=== PATIENT | female | born 1930 | race Caucasian/White ===

== ENCOUNTER 2017-08-24 23:01 | Inpatient (IN) | payer MEDICARE, BC ==
--- NOTE | 2017-08-25 01:55 | XR ---
EXAMINATION TYPE: XR chest 1V portable DATE OF EXAM: 08/25/2017 COMPARISON: 03/09/2017 HISTORY: Chest pain TECHNIQUE: Single frontal view of the chest is obtained. FINDINGS: There is no heart failure nor confluent pneumonic infiltrate. Costophrenic angles are sarmad r. Thoracic aorta is atheromatous. IMPRESSION: No active cardiopulmonary disease. There is clearing of minimal infiltrate at the right lung base compared to last exam.
[2017-08-25] MEDS ORDERED: ALPRAZolam 0.25 MG TAB PO PRN (02:07)
[2017-08-25] MEDS ORDERED: HYDROcodone/APAP 5-325MG 1 EACH TAB PO PRN (02:07)
[2017-08-25] MEDS ORDERED: hydrALAZINE HCL 20 MG/ML 1 ML VIAL IVP PRN (02:10)
[2017-08-25] MEDS ORDERED: ONDANSETRON 4 MG/2 ML VIAL IVP PRN (02:10)
[2017-08-25 02:12] LABS: Basophils % (A) 0 %; Eosinophils # (A) 0.1 k/uL (0-0.7); Eosinophils % (A) 1 %; HCT 30.9 % (34.0-46.0); HGB 10.2 gm/dL (11.4-16.0); Lymphocytes # (A) 0.9 k/uL (1.0-4.8); Lymphocytes % (A) 14 %; MCH 29.9 pg (25.0-35.0); MCV 90.5 fL (80.0-100.0); Mean Platelet Volume 7.5; Monocytes # (A) 0.3 k/uL (0-1.0); Monocytes % (A) 5 %; Neutrophils # (A) 4.7 k/uL (1.3-7.7); Neutrophils % (A) 78 %; Platelet Count 160 k/uL (150-450); RBC 3.41 m/uL (3.80-5.40)
[2017-08-25] MEDS ORDERED: SODIUM CHLORIDE 0.9% 1,000 ML IV SCH (02:15)
[2017-08-25 02:20] LABS: Glucose,Whole Blood 186 mg/dL (75-99)
[2017-08-25 02:21] LABS: Calcium 8.9 mg/dL (8.4-10.2); Potassium 4.2 mmol/L (3.5-5.1)
[2017-08-25] MEDS: HYDROcodone/APAP 5-325MG 1 EACH TAB PO PRN ×2 (04:04→21:28)
[2017-08-25] MEDS: NITROGLYCERIN SL TABS 0.4 MG TAB SUBLINGUAL PRN ×2 (04:25→04:40)
[2017-08-25] MEDS ORDERED: MAG HYDROX/AL HYDROX/SIMETH 30 ML CUP PO PRN (04:49)
[2017-08-25 05:09] LABS: HCT 25.9 % (34.0-46.0); HGB 8.9 gm/dL (11.4-16.0); MCH 30.8 pg (25.0-35.0); MCHC 34.4 g/dL (31.0-37.0); MCV 89.6 fL (80.0-100.0); Mean Platelet Volume 7.2; Platelet Count 185 k/uL (150-450); RBC 2.89 m/uL (3.80-5.40); WBC 8.3 k/uL (3.8-10.6)
[2017-08-25 05:17] LABS: Calcium 8.2 mg/dL (8.4-10.2); Magnesium 1.7 mg/dL (1.6-2.3); Potassium 4.2 mmol/L (3.5-5.1)
[2017-08-25] MEDS: LEVOTHYROXINE 75 MCG TAB PO SCH (06:30)
[2017-08-25 07:03] LABS: Glucose,Whole Blood 215 mg/dL (75-99)
[2017-08-25] MEDS: METOPROLOL SUCCINATE (ER) 100 MG TAB.ER.24H PO SCH (08:45)
[2017-08-25] MEDS: ALLOPURINOL 100 MG TAB PO SCH (08:46)
[2017-08-25] MEDS: glipiZIDE 5 MG TAB PO SCH ×2 (08:47→21:29)
[2017-08-25] MEDS: FUROSEMIDE 20 MG TAB PO SCH (08:47)
[2017-08-25] MEDS: GABAPENTIN 400 MG CAP PO SCH ×2 (08:47→21:29)
[2017-08-25] MEDS: ATORVASTATIN 10 MG TAB PO SCH (08:47)
[2017-08-25] MEDS: amLODIPine 5 MG TAB PO SCH (08:48)
[2017-08-25] MEDS: INSULIN ASPART 100 UNIT/ML 1 ML 10 ML VIAL SQ SCH ×4 (08:52→21:30)
[2017-08-25] MEDS ORDERED: MELOXICAM 7.5 MG TAB PO SCH (09:00)
[2017-08-25] MEDS ORDERED: FAMOTIDINE 20 MG TAB PO SCH (09:00)
[2017-08-25 12:06] LABS: Glucose,Whole Blood 140 mg/dL (75-99)
--- NOTE | 2017-08-25 12:09 | P.HPIM ---
History of Present Illness This is a pleasant 86 years old female with past medical history of DM, hyperlipidemia, hypertension, hypothyroidism, hip replacement, next surgery with recent cellulitis of her toe who was transferred from [facility] after patient was found to have abdominal mass Patient originally presented to the hospital with coffee ground vomitus of one- day duration, patient was complaining of from loose bowel movement for about one month and is associated with right lower quadrant abdominal pain which is mild nonspecific with no radiation currently the patient abdominal pain is controlled and she doesn't have the vomiting anymore only nauseated, computed tomography scan of the abdomen and pelvis [in the paper chart] shows moderate ascites with nodular surface of the liver with mild splenomegaly likely due to cirrhosis and portal hypertension Complex cystic lesions in the right pelvis 9.9 cm possibly adnexal in origin Patient has abdominal distention which is starts about 34 months and was gradually progressive Review of Systems Review of Systems All systems: negative Constitutional: Denies chills, Denies fever Eyes: denies blurred vision, denies pain Ears, nose, mouth and throat: Denies headache, Denies sore throat Cardiovascular: Denies chest pain, Denies shortness of breath Respiratory: Reports congestion, Reports home oxygen, Denies cough Gastrointestinal: Denies abdominal pain, Denies diarrhea, Denies nausea, Denies vomiting Musculoskeletal: Denies myalgias Integumentary: Denies pruritus, Denies rash Neurological: Denies numbness, Denies weakness Psychiatric: Denies anxiety, Denies depression Endocrine: Denies fatigue, Denies weight change Past Medical History Past Medical History: Diabetes Mellitus, Hyperlipidemia, Hypertension, Thyroid Disorder Additional Past Medical History / Comment(s): arthritis, thyroidectomy, kidney stones, retinal correction surgery. History of Any Multi-Drug Resistant Organisms: None Reported Additional Past Surgical History / Comment(s): retinal correction surgery, hip replace x2. Neck surgery. pt states doesn't remember all medical history. Additional Past Anesthesia/Blood Transfusion Reaction / Comment(s): pt states hallucinations with anesthesia. Past Psychological History: No Psychological Hx Reported Smoking Status: Former smoker Past Alcohol Use History: None Reported Past Drug Use History: None Reported Additional Drug Use History / Comment(s): quit smoking in 2003 Medications and Allergies Home Medications Medication Instructions Recorded Confirmed Type Allopurinol [Zyloprim] 100 mg PO DAILY 03/06/17 08/25/17 History Clopidogrel [Plavix] 75 mg PO DAILY 03/06/17 08/25/17 History Fluticasone Nasal [place] [Flonase 1 - 2 spray EA NOSTRIL DAILY 03/06/17 08/25/17 History Nasal [place]] Furosemide [Lasix] 20 mg PO DAILY 03/06/17 08/25/17 History Gabapentin [Neurontin] 400 mg PO BID 03/06/17 08/25/17 History Meloxicam [Mobic] 15 mg PO DAILY 03/06/17 08/25/17 History Montelukast [Singulair] 10 mg PO DAILY 03/06/17 08/25/17 History Ranitidine HCl 300 mg PO DAILY 03/06/17 08/25/17 History glipiZIDE [Glucotrol] 5 mg PO BID 03/06/17 08/25/17 History ALPRAZolam [Xanax] 0.25 mg PO DAILY PRN #7 tab 03/12/17 08/25/17 Rx Insulin Detemir [Levemir] 20 unit SQ HS syr 03/12/17 08/25/17 Rx Metoprolol Succinate (ER) [Toprol 100 mg PO DAILY tab.er.24h 03/12/17 08/25/17 Rx XL] amLODIPine [Norvasc] 5 mg PO DAILY tab 03/12/17 08/25/17 Rx Atorvastatin [Lipitor] 10 mg PO DAILY 08/25/17 08/25/17 History Insulin Aspart [NovoLOG See Protocol SQ AC-TID 08/25/17 08/25/17 History (formulary)] Levothyroxine Sodium 25 mcg PO DAILY 08/25/17 08/25/17 History Levothyroxine Sodium 200 mcg PO DAILY 08/25/17 08/25/17 History Allergies Allergy/AdvReac Type Severity Reaction Status Date / Time asparagus Allergy Unknown Verified 08/25/17 11:12 Cauliflower Allergy Unknown Verified 08/25/17 11:12 Penicillins Allergy Rash/Hives Verified 08/25/17 11:12 Sulfa (Sulfonamide Allergy Rash/Hives Verified 08/25/17 11:12 Antibiotics) venom-honey bee Allergy Anaphylaxis Verified 08/25/17 11:12 wool Allergy Rash/Hives Verified 08/25/17 11:12 bactrim Allergy Rash/Hives Uncoded 03/06/17 22:08 Physical Exam Vitals: Vital Signs Temp Pulse Resp BP Pulse Ox 08/25/17 08:00 18 08/25/17 07:00 97.6 F 96 18 172/72 100 08/25/17 04:50 101 H 132/60 08/25/17 04:35 95 123/55 08/25/17 04:30 93 89/52 08/25/17 04:20 97 163/72 08/25/17 03:45 158/68 08/25/17 02:05 197/95 08/25/17 02:00 223/108 08/25/17 01:16 98.2 F 97 16 184/77 95 Intake and Output 08/24/17 08/25/17 08/25/17 22:59 06:59 14:59 Other: Voiding Method Toilet Incontinent # Voids 1 1 Weight 96 kg Constitutional: No acute distress, conversant, pleasant Eyes: Anicteric sclerae, moist conjunctiva, no lid-lag PERRLA ENMT: NC/AT Oropharynx clear, no erythema, exudates Neck: Supple, FROM, no masses, or JVD No carotid bruits No thyromegaly Lungs: Clear to auscultation Clear to percussion Normal respiratory effort, no accessory muscle use Cardiovascular: Heart regular in rate and rhythm, No murmurs, gallops, or rubs No peripheral edema Abdominal: Soft Nontender, no guarding, rebound or rigidity Abdomen moving with respiration Normoactive bowel sounds Large Abdominal swelling, mostly due to her ascites No palpable mass No abdominal wall hernia noted Skin: Normal temperature, tone, texture, turgor No induration No subcutaneous nodules No rash, lesions No ulcers Extremities: No digital cyanosis No clubbing Pedal pulses intact and symmetrical Radial pulses intact and symmetrical Normal gait and station No calf tenderness Psychiatric: Alert and oriented to person, place and time Appropriate affect Intact judgement Neuro: Muscles Strength 5/5 in all 4 extremities Sensation to light touch grossly present throughout Cranial nerves II-XII grossly intact No focal sensory deficits Results CBC & Chem 7: 08/25/17 05:00 08/25/17 05:00 Labs: Abnormal Lab Results - Last 24 Hours (Table) 08/25/17 08/25/17 08/25/17 Range/Units 01:56 01:56 02:18 RBC 3.41 L (3.80-5.40) m/uL Hgb 10.2 L (11.4-16.0) gm/dL Hct 30.9 L (34.0-46.0) % Lymphocytes # 0.9 L (1.0-4.8) k/uL Chloride 108 H (98-107) mmol/L Carbon Dioxide (22-30) mmol/L BUN 30 H (7-17) mg/dL Glucose 177 H (74-99) mg/dL POC Glucose (mg/dL) 186 H (75-99) mg/dL Calcium (8.4-10.2) mg/dL 08/25/17 08/25/17 08/25/17 Range/Units 05:00 05:00 07:00 RBC 2.89 L (3.80-5.40) m/uL Hgb 8.9 L (11.4-16.0) gm/dL Hct 25.9 L (34.0-46.0) % Lymphocytes # (1.0-4.8) k/uL Chloride 109 H (98-107) mmol/L Carbon Dioxide 20 L (22-30) mmol/L BUN 32 H (7-17) mg/dL Glucose 199 H (74-99) mg/dL POC Glucose (mg/dL) 215 H (75-99) mg/dL Calcium 8.2 L (8.4-10.2) mg/dL Thrombosis Risk Factor Assmnt - Choose All That Apply Each Factor Represents 1 point: Heart failure (<1month), Obesity (BMI >25) Each Risk Factor Represents 3 Points: Age 75 years or older Thrombosis Risk Factor Assessment Total Risk Factor Score: 5 Thrombosis Risk Factor Assessment Level: High Risk Assessment and Plan Plan: -Cirrhosis of the liver, new onset, patient denies previous history of liver disease, today patient was on IV fluids which were DC'd, DC Xanax, call GI consult -Coffee-ground vomiting, with a drop of hemoglobin, DC Zantac, start Protonix, DC NSAIDs, call GI consult, check for occult blood in stool and iron study -Chronic diarrhea for 3 months, mostly related to her abdominal mass and or cirrhosis, we'll check for C. diff -Pelvic mass, possibly related to right-sided adnexia, we'll check ultrasound of the abdomen and pelvis -Hypertension on amlodipine -DM continue with the glipizide and Levemir 20 units daily at bedtime GI prophylaxis continue with Protonix DVT prophylaxis continue with SCDs, patient is high-risk for bleeding therefore no heparin Prognosis is guarded given her multiple comorbidities and advanced age
[2017-08-25] MEDS: PANTOPRAZOLE 40 MG/10 ML VIAL IVP SCH ×2 (13:38→21:30)
--- NOTE | 2017-08-25 13:42 | P.CRDCN ---
History of Present Illness Consult date: 08/25/17 History of present illness: This is a 86-year-old female with history of diabetes, hyperlipidemia, hypertension and hypothyroidism who was a transfer from [facility] for management of abdominal pain and possible abdominal mass. Apparently patient has been having coffee-ground hematemesis and also diarrhea. She was complaining of right lower quadrant abdominal pain. Apparently computed tomography scan of the abdomen showed moderate ascites with nodular surface of the liver with mild splenomegaly due to cirrhosis and portal hypertension. A GI consult is requested. A cardiac consult is initiated because of complaints of chest pain. Patient is vague in her description of the pain. The pain seemed to be located near the left clavicle area. It was present for several hours yesterday. Patient seemed to be stable today. She didn't appear to be in acute distress at the time of my examination. Clinically the pain appears to be atypical for angina. We will get an EKG and cardiac enzymes studies and echocardiogram. Further recommendation will depend upon the clinical course. It appears that most of her problems are related to abdominal issues Past Medical History Past Medical History: Diabetes Mellitus, Hyperlipidemia, Hypertension, Thyroid Disorder Additional Past Medical History / Comment(s): arthritis, thyroidectomy, kidney stones, retinal correction surgery. History of Any Multi-Drug Resistant Organisms: None Reported Additional Past Surgical History / Comment(s): retinal correction surgery, hip replace x2. Neck surgery. pt states doesn't remember all medical history. Additional Past Anesthesia/Blood Transfusion Reaction / Comment(s): pt states hallucinations with anesthesia. Past Psychological History: No Psychological Hx Reported Smoking Status: Former smoker Past Alcohol Use History: None Reported Past Drug Use History: None Reported Additional Drug Use History / Comment(s): quit smoking in 2003 Medications and Allergies Home Medications Medication Instructions Recorded Confirmed Type Allopurinol [Zyloprim] 100 mg PO DAILY 03/06/17 08/25/17 History Clopidogrel [Plavix] 75 mg PO DAILY 03/06/17 08/25/17 History Fluticasone Nasal [place] [Flonase 1 - 2 spray EA NOSTRIL DAILY 03/06/17 08/25/17 History Nasal [place]] Furosemide [Lasix] 20 mg PO DAILY 03/06/17 08/25/17 History Gabapentin [Neurontin] 400 mg PO BID 03/06/17 08/25/17 History Meloxicam [Mobic] 15 mg PO DAILY 03/06/17 08/25/17 History Montelukast [Singulair] 10 mg PO DAILY 03/06/17 08/25/17 History Ranitidine HCl 300 mg PO DAILY 03/06/17 08/25/17 History glipiZIDE [Glucotrol] 5 mg PO BID 03/06/17 08/25/17 History ALPRAZolam [Xanax] 0.25 mg PO DAILY PRN #7 tab 03/12/17 08/25/17 Rx Insulin Detemir [Levemir] 20 unit SQ HS syr 03/12/17 08/25/17 Rx Metoprolol Succinate (ER) [Toprol 100 mg PO DAILY tab.er.24h 03/12/17 08/25/17 Rx XL] amLODIPine [Norvasc] 5 mg PO DAILY tab 03/12/17 08/25/17 Rx Atorvastatin [Lipitor] 10 mg PO DAILY 08/25/17 08/25/17 History Insulin Aspart [NovoLOG See Protocol SQ AC-TID 08/25/17 08/25/17 History (formulary)] Levothyroxine Sodium 25 mcg PO DAILY 08/25/17 08/25/17 History Levothyroxine Sodium 200 mcg PO DAILY 08/25/17 08/25/17 History Allergies Allergy/AdvReac Type Severity Reaction Status Date / Time asparagus Allergy Unknown Verified 08/25/17 11:12 Cauliflower Allergy Unknown Verified 08/25/17 11:12 Penicillins Allergy Rash/Hives Verified 08/25/17 11:12 Sulfa (Sulfonamide Allergy Rash/Hives Verified 08/25/17 11:12 Antibiotics) venom-honey bee Allergy Anaphylaxis Verified 08/25/17 11:12 wool Allergy Rash/Hives Verified 08/25/17 11:12 bactrim Allergy Rash/Hives Uncoded 03/06/17 22:08 Physical Exam Vitals: Vital Signs Temp Pulse Resp BP Pulse Ox 08/25/17 08:00 18 08/25/17 07:00 97.6 F 96 18 172/72 100 08/25/17 04:50 101 H 132/60 08/25/17 04:35 95 123/55 08/25/17 04:30 93 89/52 08/25/17 04:20 97 163/72 08/25/17 03:45 158/68 08/25/17 02:05 197/95 08/25/17 02:00 223/108 08/25/17 01:16 98.2 F 97 16 184/77 95 Intake and Output 08/24/17 08/25/17 08/25/17 22:59 06:59 14:59 Other: Voiding Method Toilet Incontinent # Voids 1 1 Weight 96 kg GENERAL EXAM: Patient is alert and oriented and doesn't appear to be in any acute distress HEENT: Normocephalic. Normal reaction of pupils, equal size, normal range of extraocular motion. No erythema or exudates in the throat. NECK: No masses, no nuchal rigidity. CHEST: No chest wall deformity. LUNGS: Equal air entry with no crackles or wheeze. HEART: S1 and S2 normal with no audible mumurs or gallops. Regular rhythm, femorals equal on both sides.. ABDOMEN: Distended SKIN: No rashes CENTRAL NERVOUS SYSTEM: No focal deficits. EXTREMITIES: No cyanosis, clubbing or edema. Results 08/25/17 05:00 08/25/17 05:00 Cardiac Enzymes 08/25/17 08/25/17 08/25/17 Range/Units 01:56 04:50 10:30 Troponin I 0.019 0.018 0.034 (0.000-0.034) ng/mL CBC 08/25/17 08/25/17 Range/Units 01:56 05:00 WBC 6.0 8.3 (3.8-10.6) k/uL RBC 3.41 L 2.89 L (3.80-5.40) m/uL Hgb 10.2 L 8.9 L (11.4-16.0) gm/dL Hct 30.9 L 25.9 L (34.0-46.0) % Plt Count 160 185 (150-450) k/uL Comprehensive Metabolic Panel 08/25/17 08/25/17 Range/Units 01:56 05:00 Sodium 143 141 (137-145) mmol/L Potassium 4.2 4.2 (3.5-5.1) mmol/L Chloride 108 H 109 H (98-107) mmol/L Carbon Dioxide 23 20 L (22-30) mmol/L BUN 30 H 32 H (7-17) mg/dL Creatinine 0.80 0.85 (0.52-1.04) mg/dL Glucose 177 H 199 H (74-99) mg/dL Calcium 8.9 8.2 L (8.4-10.2) mg/dL Current Medications Generic Name Dose Route Start Last Admin Trade Name Freq PRN Reason Stop Dose Admin Hydrocodone Bitart/Acetaminophen 1 each 08/25/17 02:24 08/25/17 04:04 [place] 5-325 PO 1 each Q6HR PRN Administration Pain Scale 6 to 10 Allopurinol 100 mg 08/25/17 09:00 08/25/17 08:46 Zyloprim PO 100 mg DAILY DEJAH Administration Amlodipine Besylate 5 mg 08/25/17 09:00 08/25/17 08:48 Norvasc PO 5 mg DAILY DEJAH Administration Atorvastatin Calcium 10 mg 08/25/17 09:00 08/25/17 08:47 Lipitor PO 10 mg DAILY DEJAH Administration Furosemide 20 mg 08/25/17 09:00 08/25/17 08:47 Lasix PO 20 mg DAILY DEJAH Administration Gabapentin 400 mg 08/25/17 09:00 08/25/17 08:47 Neurontin PO 400 mg BID DEJAH Administration Glipizide 5 mg 08/25/17 09:00 08/25/17 08:47 Glucotrol PO 5 mg BID DEJAH Administration Hydralazine HCl 10 mg 08/25/17 02:10 08/25/17 03:25 Apresoline IVP 10 mg Q4HR PRN Administration Blood Pressure - High Insulin Aspart 0 unit 08/25/17 07:30 08/25/17 13:24 Novolog SQ Not Given [facility] Protocol Insulin Detemir 20 unit 08/25/17 21:00 Levemir SQ HS [facility] Levothyroxine Sodium 225 mcg 08/25/17 06:00 08/25/17 06:30 Synthroid PO 225 mcg DAILY@0600 [facility] Administration Metoprolol Succinate 100 mg 08/25/17 09:00 08/25/17 08:45 Toprol Xl PO 100 mg DAILY DEJAH Administration Montelukast Sodium 10 mg 08/25/17 21:00 Singulair PO HS [facility] Nitroglycerin 0.4 mg 08/25/17 04:17 08/25/17 04:40 Nitrostat SUBLINGUAL 0.4 mg Q5M PRN Administration Chest Pain Ondansetron HCl 4 mg 08/25/17 02:10 Zofran IVP Q6HR PRN Nausea And Vomiting Pantoprazole Sodium 40 mg 08/25/17 12:15 Protonix IVP BID DEJAH Intake and Output 08/24/17 08/25/17 08/25/17 22:59 06:59 14:59 Other: Voiding Method Toilet Incontinent # Voids 1 1 Weight 96 kg 08/25/17 05:00 08/25/17 05:00 Assessment and Plan (1) Atypical chest pain Current Visit: Yes Status: Acute Code(s): R07.89 - OTHER CHEST PAIN SNOMED Code(s): 066096553 (2) Ascites Current Visit: Yes Status: Acute Code(s): R18.8 - OTHER ASCITES SNOMED Code(s): 305271577 (3) Cirrhosis of liver Current Visit: Yes Status: Acute Code(s): K74.60 - UNSPECIFIED CIRRHOSIS OF LIVER SNOMED Code(s): 87742696 (4) Hypertension Current Visit: Yes Status: Acute Code(s): I10 - ESSENTIAL (PRIMARY) HYPERTENSION SNOMED Code(s): 18830633 (5) Diabetic foot ulcer Current Visit: No Status: Acute Code(s): E11.621 - TYPE 2 DIABETES MELLITUS WITH FOOT ULCER; L97.509 - NON-PRESSURE CHRONIC ULCER OTH PRT UNSP FOOT W UNSP SEVERITY SNOMED Code(s): 191975155 Plan: We will get an EKG and cardiac enzyme studies and also an echocardiogram. The abdominal issues are being addressed by GI department. Further recommendations depend upon the clinical course
[2017-08-25 13:51] LABS: Hemoglobin A1C 7.2 % (4.0-6.0)
--- NOTE | 2017-08-25 15:03 | US ---
EXAMINATION TYPE: US pelvic complete DATE OF EXAM: 08/25/2017 COMPARISON: NONE CLINICAL HISTORY: Right pelvic mass. Right pelvic mass seen on recent CT in [place], patient stat es no symptoms, 7, para 7, hysterectomy 1974, patient unsure if she has either one of her ova alhaji. TECHNIQUE: . Transabdominal sonographic images of the pelvis were acquired. Date of LMP: 1974 EXAM MEASUREMENTS: Uterus: surgically absent Endometrial Stripe: surgically absent Right Ovary: not seen Left Ovary: not seen 1. Uterus: surgically absent 2. Endometrium: surgically absent 3. Right Ovary: possibly removed vs. not seen due to overlying bowel gas 4. Left Ovary: possibly removed vs. not seen due to overlying bowel gas 5. Bilateral Adnexa: right adnexa: 10.1 x 8.4 x 9.1cm complex septated mass 6. Posterior cul-de-sac: wnl Ascites seen within pelvis IMPRESSION: There is a multiseptated predominantly cystic mass in the right adnexal region. This coul d be a cystic tumor. There is moderate ascites fluid.
--- NOTE | 2017-08-25 15:05 | US ---
EXAMINATION TYPE: US abdomen complete DATE OF EXAM: 08/25/2017 COMPARISON: NONE CLINICAL HISTORY: Right pelvic mass, ascites, possible cirrhosis. Ascites, possible cirrhosis, recent CT done in [place] EXAM MEASUREMENTS: Liver Length: 19.4 cm Gallbladder Wall: 0.3 cm CBD: 0.6 cm Spleen: 15.2 cm Right Kidney: 10.1 x 4.7 x 5.0 cm Left Kidney: 9.5 x 5.5 x 5.0 cm Difficult and limited study due to patient body habitus Pancreas: obscured by overlying midline bowel gas Liver: enlarged at 19.4cm, somewhat heterogeneous, portal vein appears hepatopedal Gallbladder: hydropic, wall borderline thickened at 0.3cm Evidence for sonographic Pham's sign: no CBD: borderline dilated at 0.6cm Spleen: enlarged at 15.2cm Right Kidney: wnl Left Kidney: 2.8 x 3.0 x 2.4cm exophytic cystic lesion superior pole Upper IVC: wnl Abd Aorta: obscured by overlying midline bowel gas Small amount of ascites seen within abdomen IMPRESSION: The gallbladder is large but not dilated. No gallstones seen. No dilated ducts. Mild to m oderate ascites fluid. Splenomegaly. No evidence of renal obstruction. No focal liver defect.
[2017-08-25 17:06] LABS: Glucose,Whole Blood 97 mg/dL (75-99)
--- NOTE | 2017-08-25 19:12 | P.OBCN ---
History of Present Illness Consult date: 08/25/17 Requesting physician: Anthony Farris Reason for consult: pelvic mass Chief complaint: Emesis and abdominal distention History of present illness: This is an 86-year-old 7 para 7 woman who presented to an outside hospital with a 2 day history of dark brown emesis, diarrhea and abdominal pain. Computed tomography scan revealed complex cystic lesion in the right pelvis measuring approximately 10 cm, ascites and nodular liver surface. She was found upon ultrasound evaluation to have a complex right adnexal mass measuring approximately 10 x 8 cm with abdominal and pelvic ascites. Her obstetric history is significant for hysterectomy in 1974 with removal of one ovary. Hysterectomy was done for benign reasons as she recalls. Currently she reports no further emesis and has minimal abdominal pain however she complains of a tight and full feeling in the abdomen. This has been gradually increasing over the past couple of months. She reports frequent urinary tract infections but no blood in the stool or urine or from the vagina. Review of Systems Constitutional: Denies chills, Denies fever, Denies weight gain, Denies weight loss Cardiovascular: Denies chest pain, Denies shortness of breath, Denies syncope Respiratory: Denies cough Gastrointestinal: Reports abdominal pain, Reports coffee ground emesis, Reports diarrhea, Reports nausea, Reports vomiting, Denies melena Genitourinary: Reports stress incontinence, Reports urge incontinence, Denies abnormal vaginal bleeding, Denies dysuria, Denies flank pain, Denies hematuria Menstruation: Reports post hysterectomy Integumentary: Denies rash Neurological: Denies headaches Psychiatric: Denies anxiety, Denies depression Hematologic/Lymphatic: Denies easy bleeding, Denies easy bruising Past Medical History Past Medical History: Diabetes Mellitus, Hyperlipidemia, Hypertension, Thyroid Disorder Additional Past Medical History / Comment(s): arthritis, thyroidectomy, kidney stones, retinal correction surgery. History of Any Multi-Drug Resistant Organisms: None Reported Past Surgical History: Hysterectomy (1974) Additional Past Surgical History / Comment(s): retinal correction surgery, hip replace x2. Neck surgery. pt states doesn't remember all medical history. Additional Past Anesthesia/Blood Transfusion Reaction / Comm: pt states hallucinations with anesthesia. Past Psychological History: No Psychological Hx Reported Smoking Status: Former smoker Past Alcohol Use History: None Reported Past Drug Use History: None Reported Additional Drug Use History / Comment(s): quit smoking in 2004 Medications and Allergies Home Medications Medication Instructions Recorded Confirmed Type Allopurinol [Zyloprim] 100 mg PO DAILY 03/06/17 08/25/17 History Clopidogrel [Plavix] 75 mg PO DAILY 03/06/17 08/25/17 History Fluticasone Nasal [place] [Flonase 1 - 2 spray EA NOSTRIL DAILY 03/06/17 08/25/17 History Nasal [place]] Furosemide [Lasix] 20 mg PO DAILY 03/06/17 08/25/17 History Gabapentin [Neurontin] 400 mg PO BID 03/06/17 08/25/17 History Meloxicam [Mobic] 15 mg PO DAILY 03/06/17 08/25/17 History Montelukast [Singulair] 10 mg PO DAILY 03/06/17 08/25/17 History Ranitidine HCl 300 mg PO DAILY 03/06/17 08/25/17 History glipiZIDE [Glucotrol] 5 mg PO BID 03/06/17 08/25/17 History ALPRAZolam [Xanax] 0.25 mg PO DAILY PRN #7 tab 03/12/17 08/25/17 Rx Insulin Detemir [Levemir] 20 unit SQ HS syr 03/12/17 08/25/17 Rx Metoprolol Succinate (ER) [Toprol 100 mg PO DAILY tab.er.24h 03/12/17 08/25/17 Rx XL] amLODIPine [Norvasc] 5 mg PO DAILY tab 03/12/17 08/25/17 Rx Atorvastatin [Lipitor] 10 mg PO DAILY 08/25/17 08/25/17 History Insulin Aspart [NovoLOG See Protocol SQ AC-TID 08/25/17 08/25/17 History (formulary)] Levothyroxine Sodium 25 mcg PO DAILY 08/25/17 08/25/17 History Levothyroxine Sodium 200 mcg PO DAILY 08/25/17 08/25/17 History Allergies Allergy/AdvReac Type Severity Reaction Status Date / Time asparagus Allergy Unknown Verified 08/25/17 11:12 Cauliflower Allergy Unknown Verified 08/25/17 11:12 Penicillins Allergy Rash/Hives Verified 08/25/17 11:12 Sulfa (Sulfonamide Allergy Rash/Hives Verified 08/25/17 11:12 Antibiotics) venom-honey bee Allergy Anaphylaxis Verified 08/25/17 11:12 wool Allergy Rash/Hives Verified 08/25/17 11:12 bactrim Allergy Rash/Hives Uncoded 03/06/17 22:08 Exam - Vital Signs Vital signs: Vital Signs Temp Pulse Resp BP Pulse Ox 08/25/17 16:00 18 08/25/17 15:00 97.9 F 70 18 160/69 96 08/25/17 08:00 18 08/25/17 07:00 97.6 F 96 18 172/72 100 08/25/17 04:50 101 H 132/60 08/25/17 04:35 95 123/55 08/25/17 04:30 93 89/52 08/25/17 04:20 97 163/72 08/25/17 03:45 158/68 08/25/17 02:05 197/95 08/25/17 02:00 223/108 08/25/17 01:16 98.2 F 97 16 184/77 95 Intake and Output 08/25/17 08/25/17 08/25/17 06:59 14:59 22:59 Intake Total 400 Balance 400 Intake: Intake, IV Titration 400 Amount Sodium Chloride 0.9% 1, 400 000 ml @ 50 mls/hr IV . Q20H [facility] Rx#:[id number] Other: Voiding Method Toilet Toilet Incontinent Incontinent # Voids 1 2 Weight 96 kg This is a pleasant elderly female who is alert and oriented 3. HEENT exam is remarkable for some loss of dentition. The lungs are clear to auscultation anteriorly and the heart is a regular rate and rhythm. The breasts are free of any visual asymmetry or palpable masses. The abdomen is distended and tense with positive ascites fluid wave. Normal active bowel sounds. No distinct mass is palpable due to the tense distention. Pelvic exam is deferred secondary to patient's body habitus and lack of adequate examination table. There is no active bleeding noted however vaginally. Her extremities are free of any significant lesions she has SCD devices in place. Results Result Diagrams: 08/25/17 05:00 08/25/17 05:00 Abnormal Lab Results - Last 24 Hours (Table) 08/25/17 08/25/17 08/25/17 Range/Units 01:56 01:56 02:18 RBC 3.41 L (3.80-5.40) m/uL Hgb 10.2 L (11.4-16.0) gm/dL Hct 30.9 L (34.0-46.0) % Lymphocytes # 0.9 L (1.0-4.8) k/uL Chloride 108 H (98-107) mmol/L Carbon Dioxide (22-30) mmol/L BUN 30 H (7-17) mg/dL Glucose 177 H (74-99) mg/dL POC Glucose (mg/dL) 186 H (75-99) mg/dL Calcium (8.4-10.2) mg/dL 08/25/17 08/25/17 08/25/17 Range/Units 05:00 05:00 07:00 RBC 2.89 L (3.80-5.40) m/uL Hgb 8.9 L (11.4-16.0) gm/dL Hct 25.9 L (34.0-46.0) % Lymphocytes # (1.0-4.8) k/uL Chloride 109 H (98-107) mmol/L Carbon Dioxide 20 L (22-30) mmol/L BUN 32 H (7-17) mg/dL Glucose 199 H (74-99) mg/dL POC Glucose (mg/dL) 215 H (75-99) mg/dL Calcium 8.2 L (8.4-10.2) mg/dL 08/25/17 Range/Units 12:04 RBC (3.80-5.40) m/uL Hgb (11.4-16.0) gm/dL Hct (34.0-46.0) % Lymphocytes # (1.0-4.8) k/uL Chloride (98-107) mmol/L Carbon Dioxide (22-30) mmol/L BUN (7-17) mg/dL Glucose (74-99) mg/dL POC Glucose (mg/dL) 140 H (75-99) mg/dL Calcium (8.4-10.2) mg/dL US - abdomen: report reviewed, image reviewed Assessment and Plan (1) Pelvic mass in female Narrative/Plan: 86-year-old 7 para 7 woman with complex 10 cm right adnexal mass, pelvic ascites and anemia. There is studying on the liver surfaces well as a renal mass. This is concerning for an ovarian malignancy. CEA 125 level is pending. I discussed my concerns with the patient today and will also review with family members when they are available. Should the CA-125 level be elevated indicating a high potential for malignancy, the typical course of action would be surgical diagnosis and management with a LEARNING AND DEVELOPMENT MANAGER oncologist. At this point the patient feels very strongly that she does not want to pursue any type of major surgery. Therefore an alternative would be a paracentesis which would be both diagnostic and therapeutic by relieving her distention. I will follow closely along. Thank you for allowing me to see in the care of this kind lady. Current Visit: Yes Status: Acute Code(s): R19.00 - INTRA-ABD AND PELVIC SWELLING, MASS AND LUMP, UNSP SITE SNOMED Code(s): 25474248 (2) Anemia Current Visit: Yes Status: Acute Code(s): D64.9 - ANEMIA, UNSPECIFIED SNOMED Code(s): 130044932 (3) Diabetes Current Visit: Yes Status: Acute Code(s): E11.9 - TYPE 2 DIABETES MELLITUS WITHOUT COMPLICATIONS SNOMED Code(s): 20056223 (4) Ascites Current Visit: Yes Status: Acute Code(s): R18.8 - OTHER ASCITES SNOMED Code(s): 391649425 (5) Hypertension Current Visit: Yes Status: Acute Code(s): I10 - ESSENTIAL (PRIMARY) HYPERTENSION SNOMED Code(s): 35499791 Time with Patient: Greater than 30
[2017-08-25 20:44] LABS: Glucose,Whole Blood 131 mg/dL (75-99)
[2017-08-25] MEDS: MONTELUKAST 10 MG TAB PO SCH (21:29)
[2017-08-25] MEDS: INSULIN DETEMIR 100 UNIT/ML 10 ML VIAL SQ SCH (21:29)
[2017-08-26 02:06] LABS: Glucose,Whole Blood 112 mg/dL (75-99)
[2017-08-26] MEDS: LEVOTHYROXINE 75 MCG TAB PO SCH (06:23)
[2017-08-26 06:38] LABS: Glucose,Whole Blood 90 mg/dL (75-99)
[2017-08-26 07:10] LABS: INR 1.1 (<1.2); Partial Thromboplastin Time 23.1 sec (22.0-30.0); Prothrombin Time 10.5 sec (9.0-12.0)
[2017-08-26] MEDS: INSULIN ASPART 100 UNIT/ML 1 ML 10 ML VIAL SQ SCH ×4 (07:10→20:15)
[2017-08-26] MEDS: PANTOPRAZOLE 40 MG/10 ML VIAL IVP SCH ×2 (07:12→20:15)
[2017-08-26] MEDS: ALLOPURINOL 100 MG TAB PO SCH (07:14)
[2017-08-26] MEDS: glipiZIDE 5 MG TAB PO SCH ×2 (07:14→20:14)
[2017-08-26] MEDS: METOPROLOL SUCCINATE (ER) 100 MG TAB.ER.24H PO SCH (07:14)
[2017-08-26] MEDS: ATORVASTATIN 10 MG TAB PO SCH (07:15)
[2017-08-26] MEDS: GABAPENTIN 400 MG CAP PO SCH ×2 (07:15→20:14)
[2017-08-26] MEDS: FUROSEMIDE 20 MG TAB PO SCH (07:15)
[2017-08-26] MEDS: amLODIPine 5 MG TAB PO SCH (07:15)
[2017-08-26 07:17] LABS: Calcium 8.3 mg/dL (8.4-10.2); Potassium 4.1 mmol/L (3.5-5.1)
[2017-08-26 07:23] LABS: Basophils % (A) 1 %; Eosinophils # (A) 0.1 k/uL (0-0.7); Eosinophils % (A) 2 %; HCT 26.7 % (34.0-46.0); Lymphocytes # (A) 0.6 k/uL (1.0-4.8); Lymphocytes % (A) 11 %; MCH 30.7 pg (25.0-35.0); MCHC 33.5 g/dL (31.0-37.0); MCV 91.4 fL (80.0-100.0); Mean Platelet Volume 7.4; Monocytes # (A) 0.2 k/uL (0-1.0); Monocytes % (A) 4 %; Neutrophils # (A) 4.2 k/uL (1.3-7.7); Neutrophils % (A) 80 %; Platelet Count 144 k/uL (150-450); RBC 2.92 m/uL (3.80-5.40); RDW 15.1 % (11.5-15.5); WBC 5.3 k/uL (3.8-10.6)
--- NOTE | 2017-08-26 09:26 | P.PN ---
Subjective Progress Note Date: 08/26/17 This 86-year-old female is admitted with the abdominal swelling and pain. She has ascites and possible mass. The possibility of ovarian cancer is being considered. She is free of any chest pain since yesterday. Her EKG showed sinus rhythm with right bundle-branch block without any acute changes. Her cardiac enzymes are not suggestive of acute coronary syndrome. Echocardiogram is pending. She does have systolic murmur all over the precordium. The possibility of aortic stenosis to be considered. Further comminution depend upon the findings Objective - Vital Signs Vital signs: Vital Signs Temp 98 F 08/26/17 05:30 Pulse 83 08/26/17 05:30 Resp 16 08/26/17 05:30 BP 155/67 08/26/17 05:30 Pulse Ox 93 L 08/26/17 08:39 Intake & Output 08/25/17 08/26/17 08/26/17 18:59 06:59 18:59 Intake Total 400 400 Balance 400 400 Weight 92.1 kg Intake: Intake, IV Titration 400 400 Amount Sodium Chloride 0.9% 1, 400 400 000 ml @ 50 mls/hr IV . Q20H [facility] Rx#:[id number] Other: Voiding Method Toilet Toilet Toilet Incontinent Incontinent Incontinent # Voids 2 2 - Exam GENERAL EXAM: Patient is alert and oriented and doesn't appear to be in any acute distress HEENT: Normocephalic. Normal reaction of pupils, equal size, normal range of extraocular motion. No erythema or exudates in the throat. NECK: No masses, no nuchal rigidity. CHEST: No chest wall deformity. LUNGS: Equal air entry with no crackles or wheeze. HEART: S1 and S2 normal. Systolic murmur heard all over the precordium ABDOMEN: No hepatosplenomegaly, normal bowel sounds, no guarding or rigidity. SKIN: No rashes CENTRAL NERVOUS SYSTEM: No focal deficits. EXTREMITIES: No cyanosis, clubbing or edema. - Labs CBC & Chem 7: 08/26/17 06:39 08/26/17 06:39 Labs: Abnormal Lab Results - Last 24 Hours (Table) 08/25/17 08/25/17 08/25/17 Range/Units 01:56 05:00 12:04 RBC (3.80-5.40) m/uL Hgb (11.4-16.0) gm/dL Hct (34.0-46.0) % Plt Count (150-450) k/uL Lymphocytes # (1.0-4.8) k/uL Chloride (98-107) mmol/L BUN (7-17) mg/dL POC Glucose (mg/dL) 140 H (75-99) mg/dL Hemoglobin A1c 7.2 H (4.0-6.0) % Calcium (8.4-10.2) mg/dL CA 125 Antigen 420.4 H (0.0-30.1) U/mL 08/25/17 08/26/17 08/26/17 Range/Units 20:39 02:03 06:39 RBC 2.92 L (3.80-5.40) m/uL Hgb 9.0 L (11.4-16.0) gm/dL Hct 26.7 L (34.0-46.0) % Plt Count 144 L (150-450) k/uL Lymphocytes # 0.6 L (1.0-4.8) k/uL Chloride (98-107) mmol/L BUN (7-17) mg/dL POC Glucose (mg/dL) 131 H 112 H (75-99) mg/dL Hemoglobin A1c (4.0-6.0) % Calcium (8.4-10.2) mg/dL CA 125 Antigen (0.0-30.1) U/mL 08/26/17 Range/Units 06:39 RBC (3.80-5.40) m/uL Hgb (11.4-16.0) gm/dL Hct (34.0-46.0) % Plt Count (150-450) k/uL Lymphocytes # (1.0-4.8) k/uL Chloride 110 H (98-107) mmol/L BUN 37 H (7-17) mg/dL POC Glucose (mg/dL) (75-99) mg/dL Hemoglobin A1c (4.0-6.0) % Calcium 8.3 L (8.4-10.2) mg/dL CA 125 Antigen (0.0-30.1) U/mL Assessment and Plan (1) Atypical chest pain Current Visit: Yes Status: Acute Code(s): R07.89 - OTHER CHEST PAIN SNOMED Code(s): 567317447 (2) Ascites Current Visit: Yes Status: Acute Code(s): R18.8 - OTHER ASCITES SNOMED Code(s): 327088347 (3) Cirrhosis of liver Current Visit: Yes Status: Acute Code(s): K74.60 - UNSPECIFIED CIRRHOSIS OF LIVER SNOMED Code(s): 71871357 (4) Hypertension Current Visit: Yes Status: Acute Code(s): I10 - ESSENTIAL (PRIMARY) HYPERTENSION SNOMED Code(s): 13537555 (5) Diabetic foot ulcer Current Visit: No Status: Acute Code(s): E11.621 - TYPE 2 DIABETES MELLITUS WITH FOOT ULCER; L97.509 - NON-PRESSURE CHRONIC ULCER OTH PRT UNSP FOOT W UNSP SEVERITY SNOMED Code(s): 951773951 (6) Aortic stenosis Current Visit: Yes Status: Acute Code(s): I35.0 - NONRHEUMATIC AORTIC (VALVE ) STENOSIS SNOMED Code(s): 56427736 Plan: We will continue to monitor her for any recurrence of chest pains. Echocardiogram will be done tomorrow. Rest of the management as for the various consultants
[2017-08-26 11:19] LABS: Glucose,Whole Blood 174 mg/dL (75-99)
--- NOTE | 2017-08-26 11:32 | P.PN ---
Subjective This is a pleasant 86 years old female with past medical history of DM, hyperlipidemia, hypertension, hypothyroidism, hip replacement, next surgery with recent cellulitis of her toe who was transferred from [facility] after patient was found to have abdominal mass Patient originally presented to the hospital with coffee ground vomitus of one- day duration, patient was complaining of from loose bowel movement for about one month and is associated with right lower quadrant abdominal pain which is mild nonspecific with no radiation currently the patient abdominal pain is controlled and she doesn't have the vomiting anymore only nauseated, computed tomography scan of the abdomen and pelvis [in the paper chart] shows moderate ascites with nodular surface of the liver with mild splenomegaly likely due to cirrhosis and portal hypertension Complex cystic lesions in the right pelvis 9.9 cm possibly adnexal in origin Patient has abdominal distention which is starts about 3-4 months and was gradually progressive 08/26/2017 Patient was sitting in the chair, feeling generalized weak, with some dizziness , her abdomen is still distended with few times of vomiting, however her diarrhea has stopped, workup have shown so far to masses when the pelvis and the second is related to her left kidney, also she is new onset cirrhosis with ascites, but with no breathing difficulties, her hemoglobin is still low at 9, creatinine 0.9, CA-125 Ag high at 420 All systems: negative Constitutional: Denies chills, Denies fever Eyes: denies blurred vision, denies pain Ears, nose, mouth and throat: Denies headache, Denies sore throat Cardiovascular: Denies chest pain, Denies shortness of breath Respiratory: Reports congestion, Reports home oxygen, Denies cough Gastrointestinal: Denies abdominal pain, Denies diarrhea, Denies nausea, Denies vomiting Musculoskeletal: Denies myalgias Integumentary: Denies pruritus, Denies rash Neurological: Denies numbness, Denies weakness Psychiatric: Denies anxiety, Denies depression Endocrine: Denies fatigue, Denies weight change Objective - Vital Signs Vital signs: Vital Signs Temp 98 F 08/26/17 05:30 Pulse 83 08/26/17 05:30 Resp 16 08/26/17 05:30 BP 155/67 08/26/17 05:30 Pulse Ox 93 L 08/26/17 08:39 Intake & Output 08/25/17 08/26/17 08/26/17 18:59 06:59 18:59 Intake Total 400 400 Balance 400 400 Weight 92.1 kg Intake: Intake, IV Titration 400 400 Amount Sodium Chloride 0.9% 1, 400 400 000 ml @ 50 mls/hr IV . [facility]H [facility] Rx#:[id number] Other: Voiding Method Toilet Toilet Toilet Incontinent Incontinent Incontinent # Voids 2 2 - Labs CBC & Chem 7: 08/26/17 06:39 08/26/17 06:39 Labs: Abnormal Lab Results - Last 24 Hours (Table) 08/25/17 08/25/17 08/25/17 Range/Units 01:56 05:00 12:04 RBC (3.80-5.40) m/uL Hgb (11.4-16.0) gm/dL Hct (34.0-46.0) % Plt Count (150-450) k/uL Lymphocytes # (1.0-4.8) k/uL Chloride (98-107) mmol/L BUN (7-17) mg/dL POC Glucose (mg/dL) 140 H (75-99) mg/dL Hemoglobin A1c 7.2 H (4.0-6.0) % Calcium (8.4-10.2) mg/dL CA 125 Antigen 420.4 H (0.0-30.1) U/mL 08/25/17 08/26/17 08/26/17 Range/Units 20:39 02:03 06:39 RBC 2.92 L (3.80-5.40) m/uL Hgb 9.0 L (11.4-16.0) gm/dL Hct 26.7 L (34.0-46.0) % Plt Count 144 L (150-450) k/uL Lymphocytes # 0.6 L (1.0-4.8) k/uL Chloride (98-107) mmol/L BUN (7-17) mg/dL POC Glucose (mg/dL) 131 H 112 H (75-99) mg/dL Hemoglobin A1c (4.0-6.0) % Calcium (8.4-10.2) mg/dL CA 125 Antigen (0.0-30.1) U/mL 08/26/17 Range/Units 06:39 RBC (3.80-5.40) m/uL Hgb (11.4-16.0) gm/dL Hct (34.0-46.0) % Plt Count (150-450) k/uL Lymphocytes # (1.0-4.8) k/uL Chloride 110 H (98-107) mmol/L BUN 37 H (7-17) mg/dL POC Glucose (mg/dL) (75-99) mg/dL Hemoglobin A1c (4.0-6.0) % Calcium 8.3 L (8.4-10.2) mg/dL CA 125 Antigen (0.0-30.1) U/mL Assessment and Plan Plan: -Cirrhosis of the liver with ascites, new onset, patient denies previous history of liver disease, today patient was on IV fluids which were DC'd, DC Xanax, call GI consult, Lasix 40 mg IV twice a day -Coffee-ground vomiting, with a drop of hemoglobin but stable at 9, DC Zantac, start Protonix, DC NSAIDs, call GI consult, check for occult blood in stool and iron study -Chronic diarrhea for 3 months, mostly related to her abdominal mass and or cirrhosis, we'll check for C. diff, however patient doesn't have any loose bowel movement on 08/26 -Pelvic mass, possibly related to right-sided adnexia, we'll check ultrasound of the abdomen and pelvis: Right adnexal complex mass about 10 cm, TRIPE WASHER consult is appreciated, CEA-125 levels are pendingand CA-125 is high at 420 -Left kidney cystic lesion: Will call urology consult: Pending -Hypertension on amlodipine -DM continue with the glipizide and Levemir 20 units daily at bedtime GI prophylaxis continue with Protonix DVT prophylaxis continue with SCDs, patient is high-risk for bleeding therefore no heparin Prognosis is guarded given her multiple comorbidities and advanced age
[2017-08-26] MEDS: FUROSEMIDE 10 MG/ML 4 ML VIAL IV SCH ×2 (12:55→20:14)
--- NOTE | 2017-08-26 12:55 | P.PN ---
Subjective Progress Note Date: 08/26/17 Principal diagnosis: Pelvic mass, ascites She reports feeling significantly better today. Nausea, vomiting and diarrhea have resolved. She denies shortness of breath or chest pain. She denies abdominal pain. Objective - Vital Signs Vital signs: Vital Signs Temp 98 F 08/26/17 05:30 Pulse 83 08/26/17 05:30 Resp 16 08/26/17 05:30 BP 155/67 08/26/17 05:30 Pulse Ox 93 L 08/26/17 08:39 Intake & Output 08/25/17 08/26/17 08/26/17 18:59 06:59 18:59 Intake Total 400 400 Balance 400 400 Weight 92.1 kg Intake: Intake, IV Titration 400 400 Amount Sodium Chloride 0.9% 1, 400 400 000 ml @ 50 mls/hr IV . Q20H [facility] Rx#:[id number] Other: Voiding Method Toilet Toilet Toilet Incontinent Incontinent Incontinent # Voids 2 2 - Constitutional General appearance: Present: no acute distress, obese - Respiratory Respiratory: bilateral: CTA - Cardiovascular Rhythm: regular - Gastrointestinal General gastrointestinal: Present: distended, normal bowel sounds. Absent: tenderness - Neurologic Neurologic: Absent: focal deficits - Psychiatric Psychiatric: Present: A&O x's 3, appropriate affect, intact judgment & insight - Labs CBC & Chem 7: 08/26/17 06:39 08/26/17 06:39 Labs: Abnormal Lab Results - Last 24 Hours (Table) 08/25/17 08/25/17 08/25/17 Range/Units 01:56 05:00 20:39 RBC (3.80-5.40) m/uL Hgb (11.4-16.0) gm/dL Hct (34.0-46.0) % Plt Count (150-450) k/uL Lymphocytes # (1.0-4.8) k/uL Chloride (98-107) mmol/L BUN (7-17) mg/dL POC Glucose (mg/dL) 131 H (75-99) mg/dL Hemoglobin A1c 7.2 H (4.0-6.0) % Calcium (8.4-10.2) mg/dL CA 125 Antigen 420.4 H (0.0-30.1) U/mL 08/26/17 08/26/17 08/26/17 Range/Units 02:03 06:39 06:39 RBC 2.92 L (3.80-5.40) m/uL Hgb 9.0 L (11.4-16.0) gm/dL Hct 26.7 L (34.0-46.0) % Plt Count 144 L (150-450) k/uL Lymphocytes # 0.6 L (1.0-4.8) k/uL Chloride 110 H (98-107) mmol/L BUN 37 H (7-17) mg/dL POC Glucose (mg/dL) 112 H (75-99) mg/dL Hemoglobin A1c (4.0-6.0) % Calcium 8.3 L (8.4-10.2) mg/dL CA 125 Antigen (0.0-30.1) U/mL 08/26/17 Range/Units 11:17 RBC (3.80-5.40) m/uL Hgb (11.4-16.0) gm/dL Hct (34.0-46.0) % Plt Count (150-450) k/uL Lymphocytes # (1.0-4.8) k/uL Chloride (98-107) mmol/L BUN (7-17) mg/dL POC Glucose (mg/dL) 174 H (75-99) mg/dL Hemoglobin A1c (4.0-6.0) % Calcium (8.4-10.2) mg/dL CA 125 Antigen (0.0-30.1) U/mL Assessment and Plan (1) Pelvic mass in female Narrative/Plan: CA 125 level elevated at 420. Elevated CA-125 in combination with ascites, pelvic mass and nodules on the liver are concerning for metastatic ovarian cancer. I believe ovarian cancer is a more likely cause for her ascites and liver nodularity than cirrhosis. I had a long discussion with the patient and 2 of her daughters regarding the situation. I have recommended referral as an outpatient to a FISHERIES MANAGEMENT BIOLOGIST oncologist for further consultation. I do believe she will undergo surgical diagnosis and treatment and we spent a long time discussing the pros and cons of this as well as possibility for ongoing treatment such as chemotherapy. Once she is discharged I will arrange referral to a FISHERIES MANAGEMENT BIOLOGIST oncologist this week. The family is in agreement with the plan, all questions were answered, greater than 45 minutes spent in discussion. Current Visit: Yes Status: Acute Code(s): R19.00 - INTRA-ABD AND PELVIC SWELLING, MASS AND LUMP, UNSP SITE SNOMED Code(s): 24517635 (2) Anemia Current Visit: Yes Status: Acute Code(s): D64.9 - ANEMIA, UNSPECIFIED SNOMED Code(s): 325829269 (3) Diabetes Current Visit: Yes Status: Acute Code(s): E11.9 - TYPE 2 DIABETES MELLITUS WITHOUT COMPLICATIONS SNOMED Code(s): 05801389 (4) Ascites Current Visit: Yes Status: Acute Code(s): R18.8 - OTHER ASCITES SNOMED Code(s): 407259073 (5) Hypertension Current Visit: Yes Status: Acute Code(s): I10 - ESSENTIAL (PRIMARY) HYPERTENSION SNOMED Code(s): 90939724
--- NOTE | 2017-08-26 16:52 | P.PN ---
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 2- Ascites 2nd to above Recommendations: 1- Diagnostic/Therapeutic Paracentesis 2- Reviewed likely diagnosis of abdominal malignancy with patient/daughter 3- Agree with PRIMARY TEACHER/Onc evaluation as suggested by Dr Aguirre 4- I discussed case with Dr Liu Tillman ([facility]-PRIMARY TEACHER/ONC)> he advised Diagnostic/ Therapeutic Paracentesis as above > starting Nirmal-adjuvant Chemotherapy and he will evaluate as out-patient later 5- Recommended Carboplatinum+Taxol Chemotherapy Q 21 days X 6 ( To receive 3 cycles before surgery and 3 cycles after surgery), discussed side effects 6- Mediport placement ( Dr Cline). Answered all questions/concerns
[2017-08-26 17:15] LABS: Glucose,Whole Blood 102 mg/dL (75-99)
[2017-08-26 19:55] LABS: Glucose,Whole Blood 169 mg/dL (75-99)
[2017-08-26] MEDS: MONTELUKAST 10 MG TAB PO SCH (20:14)
[2017-08-26] MEDS: INSULIN DETEMIR 100 UNIT/ML 10 ML VIAL SQ SCH (20:15)
--- NOTE | 2017-08-26 23:26 | CONS ---
CONSULTATION REQUESTING PHYSICIAN: Dr. Farris. REASON FOR CONSULTATION: Ovarian mass, maybe a pelvic mass. HISTORY OF ILLNESS: Mrs. Perez is a pleasant 86-year-old female with history of diabetes mellitus, she presented to [facility] with progressive abdominal distention and discomfort, she stated having vague discomfort in her abdomen for the last 2 months, but not until the last 2 weeks when she has noticed significant increase of abdominal distention. This was very uncomfortable. CT scan of the abdomen done at [facility] revealed large 10 x 12 cm right pelvic mass, as well as massive abdominal and pelvic ascites. The patient was seen by Dr. Richey from the PRIMARY CARE PHYSICIAN service. CA-125 was ordered at 420. The patient is seen today and again she is complaining of having abdominal distention, early satiety, constipation with a few melanotic stools, and having polyuria without dysuria. PAST MEDICAL HISTORY: 1. Adult onset diabetes mellitus. 2. Diabetic neuropathy. 3. Hypertension. 4. Hyperlipidemia. 5. Hypothyroidism. PAST SURGICAL HISTORY: Total abdominal hysterectomy with unilateral oophorectomy for benign lesion. SOCIAL HISTORY: Vidhi is a lifetime nonsmoker. Denies any excessive use of alcohol. Resides with her daughter in [place]. FAMILY HISTORY: Unremarkable for malignancy. EXAMINATION: The patient is alert, oriented. Skin is warm and dry. Hair distribution within normal for age and gender. Blood pressure was 126/63, pulse of 71 and regular, respiratory rate was 18, not labored. Temperature 98.6. No pathologic cervical, supraclavicular, infraclavicular, or axillary lymphadenopathy. Trachea was in the midline. Chest was clear with good air exchange bilaterally. Few crackles in both bases. Heart sounds were normal. The abdomen was severely distended with ascites and shifting dullness and mild diffuse tenderness. No rebound. Extremities shows mild generalized edema. No focal neurologic deficits. Cranial nerves 2-12 were unremarkable. IMPRESSION: 1. 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 2. Ascites due to above. 3. Diabetes with diabetic peripheral neuropathy and multiple other stable comorbidities. RECOMMENDATION: 1. Agree with the assessment by Dr. Richey. 2. Recommended diagnostic/therapeutic paracentesis. 3. I reviewed the likely diagnosis of abdominal malignancy with the patient and her daughter. 4. I discussed the case with Dr. Liu Barajas, [facility] in PRIMARY CARE PHYSICIAN Oncology. He advised diagnostic/therapeutic paracentesis as stated above. Advice starting neoadjuvant chemotherapy and he will re-evaluate the patient later on in the outpatient setting. The patient would likely need surgery. However given the extent of disease, neoadjuvant therapy is usually recommended for 3 cycles of carboplatin and Taxol provided and then surgery to be followed by 3 additional cycles of chemotherapy. 5. I discussed carboplatin and Taxol chemotherapy with the patient and her daughter. Discussed potential side effects and benefits. 6. Mediport placement by Dr. Cline. 7. We will likely proceed with the first cycle of chemotherapy in an inpatient setting. 8. I answered the patient and her daughter's questions and concerns to their satisfaction. We will follow the patient along with you in the hospital. Further recommendation to follow. MMODL / IJN: [id number] /
[2017-08-27] MEDS: HYDROcodone/APAP 5-325MG 1 EACH TAB PO PRN ×2 (00:58→23:21)
[2017-08-27] MEDS: LEVOTHYROXINE 75 MCG TAB PO SCH (06:09)
[2017-08-27 07:04] LABS: Glucose,Whole Blood 132 mg/dL (75-99)
[2017-08-27 07:08] LABS: Basophils % (A) 1 %; Eosinophils # (A) 0.1 k/uL (0-0.7); Eosinophils % (A) 5 %; HCT 24.1 % (34.0-46.0); HGB 7.8 gm/dL (11.4-16.0); Lymphocytes # (A) 0.6 k/uL (1.0-4.8); Lymphocytes % (A) 22 %; MCH 29.7 pg (25.0-35.0); MCHC 32.2 g/dL (31.0-37.0); MCV 92.2 fL (80.0-100.0); Mean Platelet Volume 8.4; Monocytes # (A) 0.2 k/uL (0-1.0); Monocytes % (A) 8 %; Neutrophils # (A) 1.9 k/uL (1.3-7.7); Neutrophils % (A) 64 %; Platelet Count 120 k/uL (150-450); RBC 2.61 m/uL (3.80-5.40); RDW 15.1 % (11.5-15.5); WBC 2.9 k/uL (3.8-10.6)
[2017-08-27 08:03] LABS: Calcium 7.8 mg/dL (8.4-10.2); Potassium 3.8 mmol/L (3.5-5.1)
[2017-08-27] MEDS: amLODIPine 5 MG TAB PO SCH (08:43)
[2017-08-27] MEDS: ATORVASTATIN 10 MG TAB PO SCH (08:43)
[2017-08-27] MEDS: INSULIN ASPART 100 UNIT/ML 1 ML 10 ML VIAL SQ SCH ×4 (08:43→21:08)
[2017-08-27] MEDS: ALLOPURINOL 100 MG TAB PO SCH (08:43)
[2017-08-27] MEDS: GABAPENTIN 400 MG CAP PO SCH ×2 (08:44→21:12)
[2017-08-27] MEDS: PANTOPRAZOLE 40 MG/10 ML VIAL IVP SCH (08:44)
[2017-08-27] MEDS: METOPROLOL SUCCINATE (ER) 100 MG TAB.ER.24H PO SCH (08:44)
[2017-08-27] MEDS: glipiZIDE 5 MG TAB PO SCH ×2 (08:44→21:11)
[2017-08-27] MEDS: FUROSEMIDE 10 MG/ML 4 ML VIAL IV SCH (08:49)
[2017-08-27 09:33] LABS: Iron Saturation 13.11 (12.00-45.00)
--- NOTE | 2017-08-27 10:10 | ECHOF ---
Referral Reason:Chest pain and cardiomyopathy MEASUREMENTS -------- HEIGHT: 165.1 cm WEIGHT: 95.7 kg BP: 172/72 RVIDd: 3.1 cm (< 3.3) IVSd: 1.4 cm (0.6 - 1.1) LVIDd: 4.3 cm (3.9 - 5.3) LVPWd: 1.3 cm (0.6 - 1.1) IVSs: 1.7 cm LVIDs: 3.0 cm LVPWs: 2.1 cm LA Diam: 3.7 cm (2.7 - 3.8) LAESV Index (A-L): 31.07 ml/m Ao Diam: 3.2 cm (2.0 - 3.7) AV Cusp: 2.1 cm (1.5 - 2.6) MV EXCURSION: 12.169 mm (> 18.000) MV EF SLOPE: 36 mm/s (70 - 150) EPSS: 0.4 cm MV E Benito: 1.42 m/s MV DecT: 457 ms MV A Benito: 1.80 m/s MV E/A Ratio: 0.79 AV maxP.02 mmHg AV meanP.23 mmHg RAP: 5.00 mmHg RVSP: 27.13 mmHg FINDINGS -------- Sinus rhythm. This was a technically adequate study. The left ventricular size is normal. There is moderate concentric left ventricular hypertrophy. O verall left ventricular systolic function is normal with, an EF between 55 - 60 %. The right ventricle is normal in size. LA is midly dilated 29-33ml/m2. The right atrium is normal in size. There is mild aortic valve sclerosis. There is mild aortic stenosis present. Peak/mean gradient a cross the Aortic Valve is 25.02mmHg / 15.23mmHg. Severe mitral annular calcification present. Mild mitral regurgitation is present. The peak and mean MV gradients are 16.21mmHg 6.24mmHg as measured by doppler. Mild tricuspid regurgitation present. Right ventricular systolic pressure is normal at < 35 mmHg. The pulmonic valve was not well visualized. The aortic root size is normal. IVC Not well visulized. There is no pericardial effusion. CONCLUSIONS -------- 1. Sinus rhythm. 2. This was a technically adequate study. 3. The left ventricular size is normal. 4. There is moderate concentric left ventricular hypertrophy. 5. Overall left ventricular systolic function is normal with, an EF between 55 - 60 %. 6. LA is midly dilated 29-33ml/m2. 7. There is mild aortic valve sclerosis. 8. There is mild aortic stenosis present. 9. Peak/mean gradient across the Aortic Valve is 25.02mmHg / 15.23mmHg. 10. Severe mitral annular calcification present. 11. Mild mitral regurgitation is present. 12. The peak and mean MV gradients are 16.21mmHg 6.24mmHg as measured by doppler. 13. Mild tricuspid regurgitation present. 14. Right ventricular systolic pressure is normal at < 35 mmHg. 15. The pulmonic valve was not well visualized. 16. The aortic root size is normal. 17. IVC Not well visulized. 18. There is no pericardial effusion. [employer]: Melina Howell RDCS
--- NOTE | 2017-08-27 11:02 | P.GSCN ---
History of Present Illness Consult date: 08/27/17 Reason for Consult: Suspected ovarian cancer History of present illness: We were consulted see this patient for Port-A-Cath placement. Patient with suspected diagnosis of ovarian cancer with a large pelvic mass and elevated CA- 125. She describes abdominal bloating. Mild discomfort. She was scheduled for a paracentesis for diagnostic purposes today but apparently there is not enough fluid to tap. No nausea or vomiting. Review of Systems The patient denies any acute changes in vision or hearing, no dysphagia or odynophagia, no chest pain or shortness of breath, no dysuria or hematuria, no headache, no runny nose, no rectal bleeding or melena, no unexplained weight loss Past Medical History Past Medical History: Diabetes Mellitus, Hyperlipidemia, Hypertension, Thyroid Disorder Additional Past Medical History / Comment(s): arthritis, thyroidectomy, kidney stones, retinal correction surgery. History of Any Multi-Drug Resistant Organisms: None Reported Past Surgical History: Hysterectomy (1974) Additional Past Surgical History / Comment(s): retinal correction surgery, hip replace x2. Neck surgery. pt states doesn't remember all medical history. Additional Past Anesthesia/Blood Transfusion Reaction / Comm: pt states hallucinations with anesthesia. Past Psychological History: No Psychological Hx Reported Smoking Status: Former smoker Past Alcohol Use History: None Reported Past Drug Use History: None Reported Additional Drug Use History / Comment(s): quit smoking in 2003 Medications and Allergies Home Medications Medication Instructions Recorded Confirmed Type Allopurinol [Zyloprim] 100 mg PO DAILY 03/06/17 08/25/17 History Clopidogrel [Plavix] 75 mg PO DAILY 03/06/17 08/25/17 History Fluticasone Nasal [place] [Flonase 1 - 2 spray EA NOSTRIL DAILY 03/06/17 08/25/17 History Nasal [place]] Furosemide [Lasix] 20 mg PO DAILY 03/06/17 08/25/17 History Gabapentin [Neurontin] 400 mg PO BID 03/06/17 08/25/17 History Meloxicam [Mobic] 15 mg PO DAILY 03/06/17 08/25/17 History Montelukast [Singulair] 10 mg PO DAILY 03/06/17 08/25/17 History Ranitidine HCl 300 mg PO DAILY 03/06/17 08/25/17 History glipiZIDE [Glucotrol] 5 mg PO BID 03/06/17 08/25/17 History ALPRAZolam [Xanax] 0.25 mg PO DAILY PRN #7 tab 03/12/17 08/25/17 Rx Insulin Detemir [Levemir] 20 unit SQ HS syr 03/12/17 08/25/17 Rx Metoprolol Succinate (ER) [Toprol 100 mg PO DAILY tab.er.24h 03/12/17 08/25/17 Rx XL] amLODIPine [Norvasc] 5 mg PO DAILY tab 03/12/17 08/25/17 Rx Atorvastatin [Lipitor] 10 mg PO DAILY 08/25/17 08/25/17 History Insulin Aspart [NovoLOG See Protocol SQ AC-TID 08/25/17 08/25/17 History (formulary)] Levothyroxine Sodium 25 mcg PO DAILY 08/25/17 08/25/17 History Levothyroxine Sodium 200 mcg PO DAILY 08/25/17 08/25/17 History Allergies Allergy/AdvReac Type Severity Reaction Status Date / Time asparagus Allergy Unknown Verified 08/25/17 11:12 Cauliflower Allergy Unknown Verified 08/25/17 11:12 Penicillins Allergy Rash/Hives Verified 08/25/17 11:12 Sulfa (Sulfonamide Allergy Rash/Hives Verified 08/25/17 11:12 Antibiotics) venom-honey bee Allergy Anaphylaxis Verified 08/25/17 11:12 wool Allergy Rash/Hives Verified 08/25/17 11:12 bactrim Allergy Rash/Hives Uncoded 03/06/17 22:08 Surgical - Exam Vital Signs Temp Pulse Resp BP Pulse Ox 98.2 F 97 16 184/77 95 08/25/17 01:16 08/25/17 01:16 08/25/17 01:16 08/25/17 01:16 08/25/17 01:16 Physical exam: General: Well-developed, well-nourished HEENT: Normocephalic, sclerae nonicteric Abdomen: Nontender, distended Extremities: No edema Neuro: Alert and oriented Results - Labs 08/27/17 06:51 08/27/17 06:51 Abnormal Lab Results - Last 24 Hours (Table) 08/26/17 08/26/17 08/26/17 Range/Units 11:17 17:03 19:54 WBC (3.8-10.6) k/uL RBC (3.80-5.40) m/uL Hgb (11.4-16.0) gm/dL Hct (34.0-46.0) % Plt Count (150-450) k/uL Lymphocytes # (1.0-4.8) k/uL Chloride (98-107) mmol/L BUN (7-17) mg/dL Creatinine (0.52-1.04) mg/dL Glucose (74-99) mg/dL POC Glucose (mg/dL) 174 H 102 H 169 H (75-99) mg/dL Calcium (8.4-10.2) mg/dL 08/27/17 08/27/17 08/27/17 Range/Units 06:51 06:51 07:03 WBC 2.9 L (3.8-10.6) k/uL RBC 2.61 L (3.80-5.40) m/uL Hgb 7.8 L (11.4-16.0) gm/dL Hct 24.1 L (34.0-46.0) % Plt Count 120 L (150-450) k/uL Lymphocytes # 0.6 L (1.0-4.8) k/uL Chloride 109 H (98-107) mmol/L BUN 39 H (7-17) mg/dL Creatinine 1.34 H (0.52-1.04) mg/dL Glucose 110 H (74-99) mg/dL POC Glucose (mg/dL) 132 H (75-99) mg/dL Calcium 7.8 L (8.4-10.2) mg/dL Diabetes panel 08/27/17 Range/Units 06:51 Sodium 141 (137-145) mmol/L Potassium 3.8 (3.5-5.1) mmol/L Chloride 109 H (98-107) mmol/L Carbon Dioxide 22 (22-30) mmol/L BUN 39 H (7-17) mg/dL Creatinine 1.34 H (0.52-1.04) mg/dL Glucose 110 H (74-99) mg/dL Calcium 7.8 L (8.4-10.2) mg/dL Calcium panel 08/27/17 Range/Units 06:51 Calcium 7.8 L (8.4-10.2) mg/dL Pituitary panel 08/27/17 Range/Units 06:51 Sodium 141 (137-145) mmol/L Potassium 3.8 (3.5-5.1) mmol/L Chloride 109 H (98-107) mmol/L Carbon Dioxide 22 (22-30) mmol/L BUN 39 H (7-17) mg/dL Creatinine 1.34 H (0.52-1.04) mg/dL Glucose 110 H (74-99) mg/dL Calcium 7.8 L (8.4-10.2) mg/dL Adrenal panel 08/27/17 Range/Units 06:51 Sodium 141 (137-145) mmol/L Potassium 3.8 (3.5-5.1) mmol/L Chloride 109 H (98-107) mmol/L Carbon Dioxide 22 (22-30) mmol/L BUN 39 H (7-17) mg/dL Creatinine 1.34 H (0.52-1.04) mg/dL Glucose 110 H (74-99) mg/dL Calcium 7.8 L (8.4-10.2) mg/dL Assessment and Plan (1) Pelvic mass in female Narrative/Plan: Spoke with radiology regarding the planned paracentesis. Minimal fluid seen on ultrasound. Will order CT abdomen and pelvis to better evaluate. Current Visit: Yes Status: Acute Code(s): R19.00 - INTRA-ABD AND PELVIC SWELLING, MASS AND LUMP, UNSP SITE SNOMED Code(s): 32247620
[2017-08-27] MEDS ORDERED: RX INFO: IV CONTRAST WAS GIVEN 1 EACH MISC MISCELLANE PRN (11:03)
[2017-08-27 11:07] LABS: Glucose,Whole Blood 169 mg/dL (75-99)
[2017-08-27] MEDS: IOPAMIDOL-300 CONTRAST 30 ML VIAL (ORAL USE) PO PRN ×2 (12:08→13:05)
--- NOTE | 2017-08-27 13:07 | P.PN ---
Subjective Progress Note Date: 08/27/17 Principal diagnosis: Pelvic mass, ascites Feeling well today. She is currently on drinking oral contrast for planned computed tomography scan. Overall care plan has changed on consultation with the Dr. Kristofer Tillman and Dr. Landaverde. Plan is for neoadjuvant chemotherapy and diagnostic paracentesis. It' s unclear whether paracentesis is possible and repeat imaging is planned for today in order to determine feasibility. Objective - Vital Signs Vital signs: Vital Signs Temp 98.6 F 08/27/17 07:05 Pulse 68 08/27/17 07:05 Resp 16 08/27/17 07:05 BP 136/63 08/27/17 07:05 Pulse Ox 95 08/27/17 07:20 Intake & Output 08/26/17 08/27/17 08/27/17 18:59 06:59 18:59 Intake Total 160 750 Balance 160 750 Weight 98 kg Intake: IV 160 160 0.9 160 160 Oral 590 Other: Voiding Method Toilet Toilet Toilet Incontinent Incontinent Incontinent # Voids 4 - Exam Pleasant elderly female who is alert and oriented 3. Abdomen remains significantly distended and firm. Nontender. - Labs CBC & Chem 7: 08/27/17 06:51 08/27/17 06:51 Labs: Abnormal Lab Results - Last 24 Hours (Table) 08/26/17 08/26/17 08/27/17 Range/Units 17:03 19:54 06:51 WBC 2.9 L (3.8-10.6) k/uL RBC 2.61 L (3.80-5.40) m/uL Hgb 7.8 L (11.4-16.0) gm/dL Hct 24.1 L (34.0-46.0) % Plt Count 120 L (150-450) k/uL Lymphocytes # 0.6 L (1.0-4.8) k/uL Chloride (98-107) mmol/L BUN (7-17) mg/dL Creatinine (0.52-1.04) mg/dL Glucose (74-99) mg/dL POC Glucose (mg/dL) 102 H 169 H (75-99) mg/dL Calcium (8.4-10.2) mg/dL 08/27/17 08/27/17 08/27/17 Range/Units 06:51 07:03 11:05 WBC (3.8-10.6) k/uL RBC (3.80-5.40) m/uL Hgb (11.4-16.0) gm/dL Hct (34.0-46.0) % Plt Count (150-450) k/uL Lymphocytes # (1.0-4.8) k/uL Chloride 109 H (98-107) mmol/L BUN 39 H (7-17) mg/dL Creatinine 1.34 H (0.52-1.04) mg/dL Glucose 110 H (74-99) mg/dL POC Glucose (mg/dL) 132 H 169 H (75-99) mg/dL Calcium 7.8 L (8.4-10.2) mg/dL Assessment and Plan (1) Pelvic mass in female Current Visit: Yes Status: Acute Code(s): R19.00 - INTRA-ABD AND PELVIC SWELLING, MASS AND LUMP, UNSP SITE SNOMED Code(s): 05108856 (2) Anemia Current Visit: Yes Status: Acute Code(s): D64.9 - ANEMIA, UNSPECIFIED SNOMED Code(s): 838376039 (3) Diabetes Current Visit: Yes Status: Acute Code(s): E11.9 - TYPE 2 DIABETES MELLITUS WITHOUT COMPLICATIONS SNOMED Code(s): 49809866 (4) Ascites Current Visit: Yes Status: Acute Code(s): R18.8 - OTHER ASCITES SNOMED Code(s): 160273641 (5) Hypertension Current Visit: Yes Status: Acute Code(s): I10 - ESSENTIAL (PRIMARY) HYPERTENSION SNOMED Code(s): 99142837 Plan: 86-year-old 7 para 7 woman with pelvic mass, ascites, elevated CEA 125 level suspicious for ovarian malignancy. Additional imaging plans today to determine feasibility of diagnostic and therapeutic paracentesis. MediPort placement for neoadjuvant chemotherapy. I reviewed the plan as I understand it with the patient and one of her daughters again this afternoon. All questions were answered to the best of my ability. I will continue to follow along closely.
--- NOTE | 2017-08-27 14:13 | CT ---
EXAMINATION TYPE: CT abdomen pelvis wo con DATE OF EXAM: 08/27/2017 COMPARISON: 08/25/2017 HISTORY: abdominal pain and distention CT DLP: 1063.5 mGycm Automated exposure control for dose reduction was used. TECHNIQUE: Helical acquisition of images was performed from the lung bases through the pelvis. FINDINGS: LUNG BASES: The heart is enlarged and there is subsegmental consolidation at both lung bases. LIVER/GB: Liver demonstrates slight lobulation along its peripheral margin. Liver is prominent in siz e. PANCREAS: No significant abnormality is seen. SPLEEN: Correlate for splenomegaly.. ADRENALS: No significant abnormality is seen. KIDNEYS: There is a 3 cm lesion off the upper pole the left kidney measuring 5 Hounsfield units guillermo tible with a simple cyst. FREE AIR: No free air is visualized ADENOPATHY: None visualized. OSSEOUS STRUCTURES: Postsurgical change involving the hips limits assessment of the pelvis secondary to metal artifact. Hypertrophic and degenerative change of the spine spine noted with facet arthropa thy. Grade 1 anterolisthesis L4 on L5. BOWEL: There is mild distention of a few bowel loops within the abdomen but no diagnostic evidence o f transition point. Predominantly transverse colon. Distal stomach wall is thickened but is incomplet angelic distended which may account for the finding correlate clinically. OTHER: A small amount of ascites predominantly within the pelvis. Vascular calcifications are noted. Large complicated septated mass in the right adnexa predominantly cystic noted. IMPRESSION: SMALL AMOUNT OF ASCITES WITH A SUSPECTED COMPLICATED CYSTIC MASS WITHIN THE PELVIS MEASURING APPROXIM ATELY 10.1 CM.. THERE IS MILD DILATION OF A FEW BOWEL LOOPS INCLUDING TRANSVERSE COLON AND A COUPLE SMALL BOWEL LOOPS IN THE MID TO LEFT ABDOMEN. NO DEFINITE TRANSITION POINT. CORRELATE FOR ILEUS.
--- NOTE | 2017-08-27 14:30 | P.PN ---
Subjective Progress Note Date: 08/27/17 Mrs. Perez is a pleasant 86-year-old female past medical history significant for diabetes mellitus, hypertension and dyslipidemia. She denies history of coronary artery disease. We are following the patient for symptoms of chest pain. Possibility for a therapeutic paracentesis this afternoon once CT is complete if there is enough fluid to remove. Surgery is seeing her for medi-port placement. She is seen sitting up in bed in no acute distress. She denies symptoms of chest pain, shortness of breath, palpitations, nausea or vomiting. Echocardiogram performed reveals preserved left ventricular systolic function with ejection fraction 55-60%, mildly dilated left atrium, mild aortic valve sclerosis with mild stenosis mean gradient 15.23 mmHg, severe mitral calcification with a mean gradient of 6.24 mmHg. Hemoglobin 7.8, platelets 128 and 141, potassium 3.8, creatinine 1.34, cardiac enzymes negative 4. Blood pressure 136/63 heart rate 68 afebrile maintaining oxygen saturation on room air. Objective - Vital Signs Vital signs: Vital Signs Temp 98.6 F 08/27/17 07:05 Pulse 68 08/27/17 07:05 Resp 16 08/27/17 07:05 BP 136/63 08/27/17 07:05 Pulse Ox 95 08/27/17 07:20 Intake & Output 08/26/17 08/27/17 08/27/17 18:59 06:59 18:59 Intake Total 160 750 Balance 160 750 Weight 98 kg Intake: IV 160 160 0.9 160 160 Oral 590 Other: Voiding Method Toilet Toilet Toilet Incontinent Incontinent Incontinent # Voids 4 - Exam GENERAL: Well-appearing, well-nourished and in no acute distress. NECK: Supple without JVD or thyromegaly. LUNGS: Breath sounds clear to auscultation bilaterally. Respiration equal and unlabored. No wheezes, rales or rhonchi. HEART: Regular rate and rhythm with systolic ejection murmur at the base and apex, no rubs or gallops. S1 and S2 heard. EXTREMITIES: Normal range of motion, 1+ bilateral lower extremity edema. No clubbing or cyanosis. Peripheral pulses intact and strong. - Labs CBC & Chem 7: 08/27/17 06:51 08/27/17 06:51 Labs: Abnormal Lab Results - Last 24 Hours (Table) 08/26/17 08/26/17 08/27/17 Range/Units 17:03 19:54 06:51 WBC 2.9 L (3.8-10.6) k/uL RBC 2.61 L (3.80-5.40) m/uL Hgb 7.8 L (11.4-16.0) gm/dL Hct 24.1 L (34.0-46.0) % Plt Count 120 L (150-450) k/uL Lymphocytes # 0.6 L (1.0-4.8) k/uL Chloride (98-107) mmol/L BUN (7-17) mg/dL Creatinine (0.52-1.04) mg/dL Glucose (74-99) mg/dL POC Glucose (mg/dL) 102 H 169 H (75-99) mg/dL Calcium (8.4-10.2) mg/dL 08/27/17 08/27/17 08/27/17 Range/Units 06:51 07:03 11:05 WBC (3.8-10.6) k/uL RBC (3.80-5.40) m/uL Hgb (11.4-16.0) gm/dL Hct (34.0-46.0) % Plt Count (150-450) k/uL Lymphocytes # (1.0-4.8) k/uL Chloride 109 H (98-107) mmol/L BUN 39 H (7-17) mg/dL Creatinine 1.34 H (0.52-1.04) mg/dL Glucose 110 H (74-99) mg/dL POC Glucose (mg/dL) 132 H 169 H (75-99) mg/dL Calcium 7.8 L (8.4-10.2) mg/dL Assessment and Plan Assessment: ASSESSMENT 1. Chest pain, atypical. An acute coronary event has been ruled out with no EKG evidence of ischemia and negative cardiac enzymes. 2. Ascites 3. Cirrhosis of liver 4. Hypertension 5. Aortic stenosis, mean gradient 15.23 mmHg 6. Mitral valve calcification, mean gradient 6.24 mmHg PLAN From a cardiac perspective we recommend continuing current medical therapy. There are no indications of an acute coronary event. We will continue to see her as needed. Follow-up with Dr. Lambert in 2-3 weeks. Thank you for allowing us to participate in her care. Nurse Practitioner note has been reviewed, I agree with a documented findings and plan of care. Patient was seen and examined.
--- NOTE | 2017-08-27 17:07 | P.PN ---
Subjective Progress Note Date: 08/27/17 Principal diagnosis: ascites, vomiting Pt seen in follow up, she just returned from having 3.2L fluid removed form abdomen, she states she stomach feels better, no current nausea, vomiting, she is very hungry, no SOB or pain Objective - Vital Signs Vital signs: Vital Signs Temp 98.2 F 08/27/17 15:00 Pulse 66 08/27/17 16:33 Resp 18 08/27/17 16:33 BP 136/68 08/27/17 16:33 Pulse Ox 96 08/27/17 16:33 Intake & Output 08/26/17 08/27/17 08/27/17 18:59 06:59 18:59 Intake Total 160 750 500 Balance 160 750 500 Weight 98 kg Intake: IV 160 160 0.9 160 160 Oral 590 500 Other: Voiding Method Toilet Toilet Toilet Incontinent Incontinent Incontinent # Voids 4 5 - Exam WE, obese female, laying in bed, she is in no distress, respirations even and unlabored, abd is distended, soft, BS+ - Constitutional General appearance: Present: obese - Labs CBC & Chem 7: 08/27/17 06:51 08/27/17 06:51 Labs: Abnormal Lab Results - Last 24 Hours (Table) 08/26/17 08/26/17 08/26/17 Range/Units 06:39 17:03 19:54 WBC (3.8-10.6) k/uL RBC (3.80-5.40) m/uL Hgb (11.4-16.0) gm/dL Hct (34.0-46.0) % Plt Count (150-450) k/uL Lymphocytes # (1.0-4.8) k/uL Chloride (98-107) mmol/L BUN (7-17) mg/dL Creatinine (0.52-1.04) mg/dL Glucose (74-99) mg/dL POC Glucose (mg/dL) 102 H 169 H (75-99) mg/dL Calcium (8.4-10.2) mg/dL Iron 32 L (50-170) ug/dL 08/27/17 08/27/17 08/27/17 Range/Units 06:51 06:51 07:03 WBC 2.9 L (3.8-10.6) k/uL RBC 2.61 L (3.80-5.40) m/uL Hgb 7.8 L (11.4-16.0) gm/dL Hct 24.1 L (34.0-46.0) % Plt Count 120 L (150-450) k/uL Lymphocytes # 0.6 L (1.0-4.8) k/uL Chloride 109 H (98-107) mmol/L BUN 39 H (7-17) mg/dL Creatinine 1.34 H (0.52-1.04) mg/dL Glucose 110 H (74-99) mg/dL POC Glucose (mg/dL) 132 H (75-99) mg/dL Calcium 7.8 L (8.4-10.2) mg/dL Iron (50-170) ug/dL 08/27/17 Range/Units 11:05 WBC (3.8-10.6) k/uL RBC (3.80-5.40) m/uL Hgb (11.4-16.0) gm/dL Hct (34.0-46.0) % Plt Count (150-450) k/uL Lymphocytes # (1.0-4.8) k/uL Chloride (98-107) mmol/L BUN (7-17) mg/dL Creatinine (0.52-1.04) mg/dL Glucose (74-99) mg/dL POC Glucose (mg/dL) 169 H (75-99) mg/dL Calcium (8.4-10.2) mg/dL Iron (50-170) ug/dL Assessment and Plan (1) Ascites Narrative/Plan: S/P 3.2L paracentesis. Await cytology Current Visit: Yes Status: Acute Priority: High Code(s): R18.8 - OTHER ASCITES SNOMED Code(s): 013257768 (2) Pelvic mass in female Narrative/Plan: Evidence highly suggesting malignancy, cytology pending on ascitic fluid. Pt will be referred to [facility] Director Onc for evaluation if positive Current Visit: Yes Status: Acute Priority: High Code(s): R19.00 - INTRA- ABD AND PELVIC SWELLING, MASS AND LUMP, UNSP SITE SNOMED Code(s): 07512920 (3) Normocytic normochromic anemia Narrative/Plan: No need for transfusion at this time. Ferritin ordered Current Visit: Yes Status: Acute Priority: High Code(s): D64.9 - ANEMIA, UNSPECIFIED SNOMED Code(s): 60402231 Plan: Will request PT/OT evaluation to see if pt would benefit from a short time in rehab post hospitalization (she was independent in ADLs prior to admission)
[2017-08-27 17:15] LABS: Glucose,Whole Blood 174 mg/dL (75-99)
[2017-08-27] MEDS: PANTOPRAZOLE 40 MG TABLET PO SCH (17:47)
[2017-08-27 20:06] LABS: Glucose,Whole Blood 266 mg/dL (75-99)
--- NOTE | 2017-08-27 20:06 | CONS ---
CONSULTATION REASON FOR CONSULT: Renal failure. HISTORY OF PRESENT ILLNESS: Patient is an 86-year-old female who was initially admitted to the hospital on 08/25/2017 with increasing abdominal distention. Patient has a history of type 2 diabetes, hyperlipidemia, hypertension, hypothyroidism. Patient was found to have a complex cystic mass in the right adnexa and pelvic region. She denies any previous history of kidney diseases. Her serum creatinine was 0.8 mg/dL on initial admission. It is up to 1.34 today. Patient has been voiding. She is incontinent. Her blood pressure has not been low. Patient denies use of any nonsteroidal anti- inflammatory agents prior to admission. Patient did have a CT scan done today without IV contrast. PAST MEDICAL HISTORY: 1. Hypertension. 2. Type 2 diabetes. 3. Hyperlipidemia. 4. Hypothyroidism. 5. Diabetic neuropathy. PAST SURGICAL HISTORY: 1. Total abdominal hysterectomy. 2. Unilateral oophorectomy for a benign lesion. SOCIAL HISTORY: Negative for smoking, drug abuse or alcohol abuse. MEDICATIONS PRIOR TO ADMISSION: 1. Glucotrol. 2. Norvasc. 3. Singulair. 4. Mobic. 5. Toprol. 6. Synthroid. 7. Insulin. 8. Lasix. 9. Lipitor. 10.Zyloprim. 11.Xanax. REVIEW OF SYSTEMS: As per HPI. Other systems negative. PHYSICAL EXAMINATION: Patient is currently comfortable. She is sitting up in a chair, not in any acute distress. Blood pressure was 136/63, heart rate of 65 per minute. Patient is afebrile. EXAMINATION OF THE HEART: S1, S2. EXAMINATION OF LUNGS: Bilateral breath sounds are heard. Decreased breath sounds in the bases. ABDOMEN: Soft, non-tender, distended. Examination of lower extremities shows edema 1+ bilaterally, 2+ in the left lower extremity. 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 Labs show sodium 141, potassium 3.8, chloride 109, BUN 39, serum creatinine 1.34, hemoglobin 7.8 g/dL. UA is not available. Abdominal ultrasound shows right kidney 10.1 cm, left kidney 9.5 cm. Pelvic ultrasound showed multi-septated cystic mass in the right adnexa. ASSESSMENT: 1. Acute kidney injury, currently nonoliguric. There is no evidence of urine retention on the ultrasound. Patient has been incontinent. Her blood pressure is not low and she is not maintained on any nephrotoxic agents. However, I did see Mobic, which is NSAIDs, on her home med list prior to admission. Currently patient is maintained on IV Lasix at 40 mg q.12 hours. I will repeat another chest x-ray and we may need to cut down the dose of the Lasix, particularly given the paracentesis that will be performed today. 2. Pelvic mass, likely malignancy. Hematology/Oncology is on consult. 3. Anemia with no active bleeding noted. Check iron studies if not done yet. PLAN: Repeat chest x-ray in a.m. Hold tonight's dose of Lasix. Check urinalysis. Continue to avoid nephrotoxic agents. Avoid hypotension. We may need to decrease the dose of Norvasc, depending on her repeat blood pressures. Thank you for this consultation. We will continue to follow the patient with you during her hospitalization. MMODL / IJN: [id number] /
[2017-08-27] MEDS: INSULIN DETEMIR 100 UNIT/ML 10 ML VIAL SQ SCH (21:08)
[2017-08-27] MEDS: MONTELUKAST 10 MG TAB PO SCH (21:12)
--- NOTE | 2017-08-27 22:31 | P.PN ---
Subjective This is a pleasant 86 years old female with past medical history of DM, hyperlipidemia, hypertension, hypothyroidism, hip replacement, next surgery with recent cellulitis of her toe who was transferred from [facility] after patient was found to have abdominal mass Patient originally presented to the hospital with coffee ground vomitus of one- day duration, patient was complaining of from loose bowel movement for about one month and is associated with right lower quadrant abdominal pain which is mild nonspecific with no radiation currently the patient abdominal pain is controlled and she doesn't have the vomiting anymore only nauseated, computed tomography scan of the abdomen and pelvis [in the paper chart] shows moderate ascites with nodular surface of the liver with mild splenomegaly likely due to cirrhosis and portal hypertension Complex cystic lesions in the right pelvis 9.9 cm possibly adnexal in origin Patient has abdominal distention which is starts about 3-4 months and was gradually progressive 08/26/2017 Patient was sitting in the chair, feeling generalized weak, with some dizziness , her abdomen is still distended with few times of vomiting, however her diarrhea has stopped, workup have shown so far to masses when the pelvis and the second is related to her left kidney, also she is new onset cirrhosis with ascites, but with no breathing difficulties, her hemoglobin is still low at 9, creatinine 0.9, CA-125 Ag high at 420 08/27/17 pt clinically looks the same , she still has abd distension, i discussed the case with [employer] Coord[employer] team , she might benefit from paracentasis, her creatinine is up to 1.34 , no chest pain or dyspnea All systems: negative Constitutional: Denies chills, Denies fever Eyes: denies blurred vision, denies pain Ears, nose, mouth and throat: Denies headache, Denies sore throat Cardiovascular: Denies chest pain, Denies shortness of breath Respiratory: Reports congestion, Reports home oxygen, Denies cough Gastrointestinal: Denies abdominal pain, Denies diarrhea, Denies nausea, Denies vomiting Musculoskeletal: Denies myalgias Integumentary: Denies pruritus, Denies rash Neurological: Denies numbness, Denies weakness Psychiatric: Denies anxiety, Denies depression Endocrine: Denies fatigue, Denies weight change Objective - Vital Signs Vital signs: Vital Signs Temp 98.1 F 08/27/17 21:30 Pulse 69 08/27/17 21:30 Resp 16 08/27/17 21:30 BP 132/64 08/27/17 21:30 Pulse Ox 96 08/27/17 21:30 Intake & Output 08/27/17 08/27/17 08/28/17 06:59 18:59 06:59 Intake Total 750 500 590 Balance 750 500 590 Weight 98 kg Intake: IV 160 0.9 160 Oral 590 500 590 Other: Voiding Method Toilet Toilet Incontinent Incontinent # Voids 4 5 1 - Exam Constitutional: No acute distress, conversant, pleasant Eyes: Anicteric sclerae, moist conjunctiva, no lid-lag PERRLA ENMT: NC/AT Oropharynx clear, no erythema, exudates Neck: Supple, FROM, no masses, or JVD No carotid bruits No thyromegaly Lungs: Clear to auscultation Clear to percussion Normal respiratory effort, no accessory muscle use Cardiovascular: Heart regular in rate and rhythm, No murmurs, gallops, or rubs No peripheral edema Abdominal: Soft Nontender, no guarding, rebound or rigidity Abdomen moving with respiration Normoactive bowel sounds Large Abdominal swelling, mostly due to her ascites No palpable mass abd distention Skin: Normal temperature, tone, texture, turgor No induration No subcutaneous nodules No rash, lesions No ulcers Extremities: No digital cyanosis No clubbing Pedal pulses intact and symmetrical Radial pulses intact and symmetrical Normal gait and station Psychiatric: Alert and oriented to person, place and time Appropriate affect Intact judgement Neuro: Muscles Strength 5/5 in all 4 extremities Sensation to light touch grossly present throughout Cranial nerves II-XII grossly intact - Labs CBC & Chem 7: 08/27/17 06:51 08/27/17 06:51 Labs: Abnormal Lab Results - Last 24 Hours (Table) 08/26/17 08/27/17 08/27/17 Range/Units 06:39 06:51 06:51 WBC 2.9 L (3.8-10.6) k/uL RBC 2.61 L (3.80-5.40) m/uL Hgb 7.8 L (11.4-16.0) gm/dL Hct 24.1 L (34.0-46.0) % Plt Count 120 L (150-450) k/uL Lymphocytes # 0.6 L (1.0-4.8) k/uL Chloride 109 H (98-107) mmol/L BUN 39 H (7-17) mg/dL Creatinine 1.34 H (0.52-1.04) mg/dL Glucose 110 H (74-99) mg/dL POC Glucose (mg/dL) (75-99) mg/dL Calcium 7.8 L (8.4-10.2) mg/dL Iron 32 L (50-170) ug/dL 08/27/17 08/27/17 08/27/17 Range/Units 07:03 11:05 17:14 WBC (3.8-10.6) k/uL RBC (3.80-5.40) m/uL Hgb (11.4-16.0) gm/dL Hct (34.0-46.0) % Plt Count (150-450) k/uL Lymphocytes # (1.0-4.8) k/uL Chloride (98-107) mmol/L BUN (7-17) mg/dL Creatinine (0.52-1.04) mg/dL Glucose (74-99) mg/dL POC Glucose (mg/dL) 132 H 169 H 174 H (75-99) mg/dL Calcium (8.4-10.2) mg/dL Iron (50-170) ug/dL 08/27/17 Range/Units 20:05 WBC (3.8-10.6) k/uL RBC (3.80-5.40) m/uL Hgb (11.4-16.0) gm/dL Hct (34.0-46.0) % Plt Count (150-450) k/uL Lymphocytes # (1.0-4.8) k/uL Chloride (98-107) mmol/L BUN (7-17) mg/dL Creatinine (0.52-1.04) mg/dL Glucose (74-99) mg/dL POC Glucose (mg/dL) 266 H (75-99) mg/dL Calcium (8.4-10.2) mg/dL Iron (50-170) ug/dL Assessment and Plan Plan: -Cirrhosis of the liver with ascites, new onset, patient denies previous history of liver disease, today patient was on IV fluids which were DC'd, DC Xanax, call GI consult, Lasix 40 mg IV twice a day, however we are not sure if this is only related to her metastatic dis and portal HTN -Coffee-ground vomiting, with a drop of hemoglobin but stable at 9 then to 7.8, DC Zantac, start Protonix, DC NSAIDs, call GI consult, check for occult blood in stool and iron study -Chronic diarrhea for 3 months, mostly related to her abdominal mass and or cirrhosis, we'll check for C. diff, however patient doesn't have any loose bowel movement on 08/26 -Pelvic mass, possibly related to right-sided adnexia, we'll check ultrasound of the abdomen and pelvis: Right adnexal complex mass about 10 cm, SUPERVISOR PLATING AND POINT ASSEMBLY consult is appreciated, CEA-125 levels are pending and CA-125 is high at 420 which is suspcious for malignancy , oncology team evaluated pt and recommended chemotherapy and paracentasis and f/u outpt , for med-port placement tomorrow -Left kidney cystic lesion: discussed with the [employer] Coordinator team , pt would follow up with oncology team and reassess , cr is up today , f/u as outpt -Hypertension on amlodipine -DM continue with the glipizide and Levemir 20 units daily at bedtime -RADHA: cr up to 1.34, call nephrology consult GI prophylaxis continue with Protonix DVT prophylaxis continue with SCDs, patient is high-risk for bleeding therefore no heparin Prognosis is guarded given her multiple comorbidities and advanced age
--- NOTE | 2017-08-28 03:40 | P.CONS ---
History of Present Illness - Reason for Consult Consult date: 08/26/17 Nausea, vomiting and ascites - History of Present Illness The patient is an 86-year-old female who was admitted in transfer from [facility] where she presented with diarrhea off around 1 month duration as well as nausea and vomiting with coffee-ground vomitus. The patient also reported progressive increase in her abdominal girth over the prior [address] of the abdomen and pelvis performed prior to transfer showed the pelvic mass, ascites and nodularity over the surface of the liver raising the possibility of cirrhosis. The patient has been evaluated by STONE PROCESSING MACHINE OPERATOR and has CA-125 is elevated about 400. The patient has not had diarrhea since admission and is not feeling as sick to her stomach and wanted to try some liquid diet. There is no history of hepatitis, alcohol dependency or other known causes of chronic liver disease. Review of Systems Constitutional: Denied fever, chills and unintentional weight loss Neurologic: No headaches, double vision or any sensory or motor changes Cardiopulmonary: No chest pains, shortness of breath or palpitations Gastrointestinal: See present illness above Genitourinary: No hematuria, dysuria or frequency Endocrine: History of diabetes and thyroid disease Musculoskeletal: No joint swelling or pain Skin: No rashes Hematologic: No anemia or bleeding tendency Psychiatric: No anxiety or depression Past Medical History Past Medical History: Diabetes Mellitus, Hyperlipidemia, Hypertension, Thyroid Disorder Additional Past Medical History / Comment(s): arthritis, thyroidectomy, kidney stones, retinal correction surgery. History of Any Multi-Drug Resistant Organisms: None Reported Past Surgical History: Hysterectomy (1974) Additional Past Surgical History / Comment(s): retinal correction surgery, hip replace x2. Neck surgery. pt states doesn't remember all medical history. Additional Past Anesthesia/Blood Transfusion Reaction / Comm: pt states hallucinations with anesthesia. Past Psychological History: No Psychological Hx Reported Smoking Status: Former smoker Past Alcohol Use History: None Reported Past Drug Use History: None Reported Additional Drug Use History / Comment(s): quit smoking in 2003 Medications and Allergies Home Medications Medication Instructions Recorded Confirmed Type Allopurinol [Zyloprim] 100 mg PO DAILY 03/06/17 08/25/17 History Clopidogrel [Plavix] 75 mg PO DAILY 03/06/17 08/25/17 History Fluticasone Nasal [place] [Flonase 1 - 2 spray EA NOSTRIL DAILY 03/06/17 08/25/17 History Nasal [place]] Furosemide [Lasix] 20 mg PO DAILY 03/06/17 08/25/17 History Gabapentin [Neurontin] 400 mg PO BID 03/06/17 08/25/17 History Meloxicam [Mobic] 15 mg PO DAILY 03/06/17 08/25/17 History Montelukast [Singulair] 10 mg PO DAILY 03/06/17 08/25/17 History Ranitidine HCl 300 mg PO DAILY 03/06/17 08/25/17 History glipiZIDE [Glucotrol] 5 mg PO BID 03/06/17 08/25/17 History ALPRAZolam [Xanax] 0.25 mg PO DAILY PRN #7 tab 03/12/17 08/25/17 Rx Insulin Detemir [Levemir] 20 unit SQ HS syr 03/12/17 08/25/17 Rx Metoprolol Succinate (ER) [Toprol 100 mg PO DAILY tab.er.24h 03/12/17 08/25/17 Rx XL] amLODIPine [Norvasc] 5 mg PO DAILY tab 03/12/17 08/25/17 Rx Atorvastatin [Lipitor] 10 mg PO DAILY 08/25/17 08/25/17 History Insulin Aspart [NovoLOG See Protocol SQ AC-TID 08/25/17 08/25/17 History (formulary)] Levothyroxine Sodium 25 mcg PO DAILY 08/25/17 08/25/17 History Levothyroxine Sodium 200 mcg PO DAILY 08/25/17 08/25/17 History Allergies Allergy/AdvReac Type Severity Reaction Status Date / Time asparagus Allergy Unknown Verified 08/25/17 11:12 Cauliflower Allergy Unknown Verified 08/25/17 11:12 Penicillins Allergy Rash/Hives Verified 08/25/17 11:12 Sulfa (Sulfonamide Allergy Rash/Hives Verified 08/25/17 11:12 Antibiotics) venom-honey bee Allergy Anaphylaxis Verified 08/25/17 11:12 wool Allergy Rash/Hives Verified 08/25/17 11:12 bactrim Allergy Rash/Hives Uncoded 03/06/17 22:08 Physical Exam Vitals: Vital Signs Temp Pulse Resp BP Pulse Ox 08/26/17 08:39 93 L 08/26/17 05:30 98 F 83 16 155/67 93 L 08/25/17 22:35 99.1 F 85 16 141/67 94 L 08/25/17 16:00 18 08/25/17 15:00 97.9 F 70 18 160/69 96 Intake and Output 08/25/17 08/26/17 08/26/17 22:59 06:59 14:59 Intake Total 400 Balance 400 Intake: Intake, IV Titration 400 Amount Sodium Chloride 0.9% 1, 400 000 ml @ 50 mls/hr IV . Q20H [facility] Rx#:[id number] Other: Voiding Method Toilet Toilet Toilet Incontinent Incontinent Incontinent # Voids 2 2 Weight 92.1 kg General: Appears stated age, very pleasant sitting on a chair by the bedside, in no acute distress Head and neck: Normocephalic and atraumatic, conjunctivae pink and sclerae not icteric, mucous membranes moist and pink. No masses in the neck or tracheal shifts Lungs: Clear to auscultation with no dullness to percussion Heart: Regular, no abnormal sounds, murmurs, gallops or friction rubs abdomen: Soft, distended with shifting dullness but no masses or organomegalies palpated. No tenderness. Bowel sounds present Extremities: No clubbing, cyanosis or edema Neurologic: Alert and oriented 3. Cranial nerves grossly intact, no gross sensory or motor abnormalities. No flapping tremors Results CBC & Chem 7: 08/27/17 06:51 08/27/17 06:51 Labs: Abnormal Lab Results - Last 24 Hours (Table) 08/25/17 08/25/17 08/25/17 Range/Units 01:56 05:00 20:39 RBC (3.80-5.40) m/uL Hgb (11.4-16.0) gm/dL Hct (34.0-46.0) % Plt Count (150-450) k/uL Lymphocytes # (1.0-4.8) k/uL Chloride (98-107) mmol/L BUN (7-17) mg/dL POC Glucose (mg/dL) 131 H (75-99) mg/dL Hemoglobin A1c 7.2 H (4.0-6.0) % Calcium (8.4-10.2) mg/dL CA 125 Antigen 420.4 H (0.0-30.1) U/mL 08/26/17 08/26/17 08/26/17 Range/Units 02:03 06:39 06:39 RBC 2.92 L (3.80-5.40) m/uL Hgb 9.0 L (11.4-16.0) gm/dL Hct 26.7 L (34.0-46.0) % Plt Count 144 L (150-450) k/uL Lymphocytes # 0.6 L (1.0-4.8) k/uL Chloride 110 H (98-107) mmol/L BUN 37 H (7-17) mg/dL POC Glucose (mg/dL) 112 H (75-99) mg/dL Hemoglobin A1c (4.0-6.0) % Calcium 8.3 L (8.4-10.2) mg/dL CA 125 Antigen (0.0-30.1) U/mL 08/26/17 Range/Units 11:17 RBC (3.80-5.40) m/uL Hgb (11.4-16.0) gm/dL Hct (34.0-46.0) % Plt Count (150-450) k/uL Lymphocytes # (1.0-4.8) k/uL Chloride (98-107) mmol/L BUN (7-17) mg/dL POC Glucose (mg/dL) 174 H (75-99) mg/dL Hemoglobin A1c (4.0-6.0) % Calcium (8.4-10.2) mg/dL CA 125 Antigen (0.0-30.1) U/mL Assessment and Plan Assessment: Nausea and vomiting, including coffee-ground vomiting could be related to gastritis or peptic ulcer disease. With the ascites and suspected cirrhosis of the liver, portal gastropathy and esophageal varices to be kept in mind. It would be difficult clinically to determine if her ascites is related to primary liver disease and portal hypertension or if it is related to ovarian malignancy. Diagnostic and therapeutic paracentesis will be helpful. A possible etiology of her liver disease is nonalcoholic fatty liver disease. We will keep in mind peritoneal spread of an ovarian malignancy as a cause of ascites. Plan: Agree with your current management. Will allow clear liquid diet and consider an upper endoscopy based on her course. Will await further STONE PROCESSING MACHINE OPERATOR and oncology evaluation. I recommend an ultrasound guided large volume paracentesis by the radiologist and to send ascitic fluid for studies including cytology. Additional workup for liver disease would be made based on her ascitic fluid information. Will follow with you with interest.
[2017-08-28] MEDS: LEVOTHYROXINE 75 MCG TAB PO SCH (06:19)
[2017-08-28 06:55] LABS: Glucose,Whole Blood 84 mg/dL (75-99)
[2017-08-28 07:04] LABS: Basophils % (A) 1 %; Eosinophils # (A) 0.2 k/uL (0-0.7); Eosinophils % (A) 5 %; HCT 24.8 % (34.0-46.0); HGB 8.2 gm/dL (11.4-16.0); Lymphocytes # (A) 0.8 k/uL (1.0-4.8); Lymphocytes % (A) 22 %; MCH 30.6 pg (25.0-35.0); MCHC 33.3 g/dL (31.0-37.0); Mean Platelet Volume 7.4; Monocytes # (A) 0.2 k/uL (0-1.0); Monocytes % (A) 7 %; Neutrophils # (A) 2.3 k/uL (1.3-7.7); Neutrophils % (A) 63 %; Platelet Count 131 k/uL (150-450); RBC 2.69 m/uL (3.80-5.40); RDW 15.3 % (11.5-15.5); WBC 3.6 k/uL (3.8-10.6)
[2017-08-28 07:22] LABS: Calcium 8.1 mg/dL (8.4-10.2)
[2017-08-28 08:04] LABS: Glucose,Whole Blood 80 mg/dL (75-99)
[2017-08-28] MEDS: METOPROLOL SUCCINATE (ER) 100 MG TAB.ER.24H PO SCH (08:06)
--- NOTE | 2017-08-28 08:08 | XR ---
EXAMINATION TYPE: XR chest 1V DATE OF EXAM: 08/28/2017 COMPARISON: Prior chest 08/25/2017 HISTORY: Congestive heart failure TECHNIQUE: Single frontal view of the chest is obtained. FINDINGS: There is no focal air space opacity, pleural effusion, or pneumothorax seen. The cardiac silhouette size is stable. Arthropathy again noted within the shoulders. The osseous structures are intact. The aorta is dense. Patient is rotated. There are overlying cardiac leads. IMPRESSION: No acute process. Stable findings. Cardiomegaly.
[2017-08-28] MEDS: glipiZIDE 5 MG TAB PO SCH ×2 (09:23→22:37)
[2017-08-28] MEDS: INSULIN ASPART 100 UNIT/ML 1 ML 10 ML VIAL SQ SCH ×4 (09:23→22:45)
[2017-08-28 09:24] LABS: Glucose,Whole Blood 86 mg/dL (75-99)
[2017-08-28] MEDS: PANTOPRAZOLE 40 MG TABLET PO SCH ×2 (09:25→17:35)
[2017-08-28] MEDS ORDERED: DEXTROSE 50%-WATER 50 ML SYRINGE IVP STA (10:08)
--- NOTE | 2017-08-28 10:08 | P.PN ---
Subjective This is a pleasant 86 years old female with past medical history of DM, hyperlipidemia, hypertension, hypothyroidism, hip replacement, next surgery with recent cellulitis of her toe who was transferred from [facility] after patient was found to have abdominal mass Patient originally presented to the hospital with coffee ground vomitus of one- day duration, patient was complaining of from loose bowel movement for about one month and is associated with right lower quadrant abdominal pain which is mild nonspecific with no radiation currently the patient abdominal pain is controlled and she doesn't have the vomiting anymore only nauseated, computed tomography scan of the abdomen and pelvis [in the paper chart] shows moderate ascites with nodular surface of the liver with mild splenomegaly likely due to cirrhosis and portal hypertension Complex cystic lesions in the right pelvis 9.9 cm possibly adnexal in origin Patient has abdominal distention which is starts about 3-4 months and was gradually progressive 08/26/2017 Patient was sitting in the chair, feeling generalized weak, with some dizziness , her abdomen is still distended with few times of vomiting, however her diarrhea has stopped, workup have shown so far to masses when the pelvis and the second is related to her left kidney, also she is new onset cirrhosis with ascites, but with no breathing difficulties, her hemoglobin is still low at 9, creatinine 0.9, CA-125 Ag high at 420 08/27/17 pt clinically looks the same , she still has abd distension, i discussed the case with Line Helper team , she might benefit from paracentasis, her creatinine is up to 1.34 , no chest pain or dyspnea All systems: negative Constitutional: Denies chills, Denies fever Eyes: denies blurred vision, denies pain Ears, nose, mouth and throat: Denies headache, Denies sore throat Cardiovascular: Denies chest pain, Denies shortness of breath Respiratory: Reports congestion, Reports home oxygen, Denies cough Gastrointestinal: Denies abdominal pain, Denies diarrhea, Denies nausea, Denies vomiting Musculoskeletal: Denies myalgias Integumentary: Denies pruritus, Denies rash Neurological: Denies numbness, Denies weakness Psychiatric: Denies anxiety, Denies depression Endocrine: Denies fatigue, Denies weight change Objective - Vital Signs Vital signs: Vital Signs Temp 97.8 F 08/28/17 06:56 Pulse 58 L 08/28/17 06:56 Resp 16 08/28/17 06:56 BP 138/64 08/28/17 06:56 Pulse Ox 95 08/28/17 06:56 Intake & Output 08/27/17 08/28/17 08/28/17 18:59 06:59 18:59 Intake Total 500 1360 Balance 500 1360 Weight 93 kg Intake: IV 220 0.9 220 Oral 500 1140 Other: Voiding Method Toilet Toilet Toilet Incontinent Incontinent Incontinent # Voids 5 3 - Exam Constitutional: No acute distress, conversant, pleasant Eyes: Anicteric sclerae, moist conjunctiva, no lid-lag PERRLA ENMT: NC/AT Oropharynx clear, no erythema, exudates Neck: Supple, FROM, no masses, or JVD No carotid bruits No thyromegaly Lungs: Clear to auscultation Clear to percussion Normal respiratory effort, no accessory muscle use Cardiovascular: Heart regular in rate and rhythm, No murmurs, gallops, or rubs No peripheral edema Abdominal: Soft Nontender, no guarding, rebound or rigidity Abdomen moving with respiration Normoactive bowel sounds Large Abdominal swelling, mostly due to her ascites No palpable mass abd distention Skin: Normal temperature, tone, texture, turgor No induration No subcutaneous nodules No rash, lesions No ulcers Extremities: No digital cyanosis No clubbing Pedal pulses intact and symmetrical Radial pulses intact and symmetrical Normal gait and station Psychiatric: Alert and oriented to person, place and time Appropriate affect Intact judgement Neuro: Muscles Strength 5/5 in all 4 extremities Sensation to light touch grossly present throughout Cranial nerves II-XII grossly intact - Labs CBC & Chem 7: 08/28/17 06:39 08/28/17 06:39 Labs: Abnormal Lab Results - Last 24 Hours (Table) 08/26/17 08/26/17 08/27/17 Range/Units 06:39 06:39 11:05 WBC (3.8-10.6) k/uL RBC (3.80-5.40) m/uL Hgb (11.4-16.0) gm/dL Hct (34.0-46.0) % Plt Count (150-450) k/uL Lymphocytes # (1.0-4.8) k/uL BUN (7-17) mg/dL Creatinine (0.52-1.04) mg/dL Glucose (74-99) mg/dL POC Glucose (mg/dL) 169 H (75-99) mg/dL Calcium (8.4-10.2) mg/dL Iron 16 L 32 L (50-170) ug/dL 08/27/17 08/27/17 08/28/17 Range/Units 17:14 20:05 06:39 WBC 3.6 L (3.8-10.6) k/uL RBC 2.69 L (3.80-5.40) m/uL Hgb 8.2 L (11.4-16.0) gm/dL Hct 24.8 L (34.0-46.0) % Plt Count 131 L (150-450) k/uL Lymphocytes # 0.8 L (1.0-4.8) k/uL BUN (7-17) mg/dL Creatinine (0.52-1.04) mg/dL Glucose (74-99) mg/dL POC Glucose (mg/dL) 174 H 266 H (75-99) mg/dL Calcium (8.4-10.2) mg/dL Iron (50-170) ug/dL 08/28/17 Range/Units 06:39 WBC (3.8-10.6) k/uL RBC (3.80-5.40) m/uL Hgb (11.4-16.0) gm/dL Hct (34.0-46.0) % Plt Count (150-450) k/uL Lymphocytes # (1.0-4.8) k/uL BUN 38 H (7-17) mg/dL Creatinine 1.10 H (0.52-1.04) mg/dL Glucose 68 L (74-99) mg/dL POC Glucose (mg/dL) (75-99) mg/dL Calcium 8.1 L (8.4-10.2) mg/dL Iron (50-170) ug/dL Assessment and Plan Plan: -Cirrhosis of the liver with ascites, new onset, patient denies previous history of liver disease, today patient was on IV fluids which were DC'd, DC Xanax, call GI consult, Lasix 40 mg IV twice a day, however we are not sure if this is only related to her metastatic dis and portal HTN, s/p paracentssis -Coffee-ground vomiting, with a drop of hemoglobin but stable at 9 then to 7.8 and 8.2 and , DC Zantac, start Protonix, DC NSAIDs, call GI consult, check for occult blood in stool and iron study -Chronic diarrhea for 3 months, mostly related to her abdominal mass and or cirrhosis,resolving , however patient doesn't have any loose bowel movement on -Pelvic mass, possibly related to right-sided adnexia, we'll check ultrasound of the abdomen and pelvis: Right adnexal complex mass about 10 cm, 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, CEA-125 levels are pending and CA-125 is high at 420 which is suspcious for malignancy , oncology team evaluated pt and recommended chemotherapy and paracentasis and f/u outpt , for med-port placement today -Left kidney cystic lesion: discussed with the Line Helper team , pt would follow up with oncology team and reassess , cr is up today , f/u as outpt -Hypertension on amlodipine -DM continue with the glipizide and Levemir 20 units daily at bedtime -RADHA: cr up to 1.34, down to 1.1 GI prophylaxis continue with Protonix DVT prophylaxis continue with SCDs, patient is high-risk for bleeding therefore no heparin Prognosis is guarded given her multiple comorbidities and advanced age
[2017-08-28 10:51] LABS: Glucose,Whole Blood 185 mg/dL (75-99)
[2017-08-28] MEDS ORDERED: IV FLUID CONTINUATION 1,000 ML IV ONE (11:58)
[2017-08-28] MEDS ORDERED: LACTATED RINGERS 1,000 ML IV ONE (11:59)
[2017-08-28] MEDS ORDERED: LIDOCAINE 1% 20 ML VIAL (10MG/ML) FOR IV START INTRADERMA ONE (12:00)
[2017-08-28 12:04] LABS: Glucose,Whole Blood 135 mg/dL (75-99)
[2017-08-28] MEDS ORDERED: LIDOCAINE 1% (PF) 10MG/ML VIAL SQ ONE ×2 (12:13→13:30)
[2017-08-28] MEDS ORDERED: diphenhydrAMINE 50 MG/ML 1 ML VIAL ONE ×2 (12:22)
[2017-08-28] MEDS ORDERED: fentaNYL (PF) 50 MCG/ML 2 ML AMP ONE ×2 (12:22)
[2017-08-28] MEDS ORDERED: PROPOFOL 10 MG/ML 20 ML VIAL IV ONE ×2 (12:22)
[2017-08-28] MEDS ORDERED: MIDAZOLAM 2 MG/2 ML VIAL ONE ×2 (12:22)
[2017-08-28] MEDS ORDERED: LIDOCAINE 1% INJ 10MG/ML (20 ML MDV) ONE ×2 (12:22)
--- NOTE | 2017-08-28 13:31 | P.OP ---
Date of Procedure: 08/28/17 Procedure(s) Performed: PREOPERATIVE DIAGNOSIS: Ovarian cancer POSTOPERATIVE DIAGNOSIS: Same PROCEDURE: Port-A-Cath placement SURGEON: Son EBL: Minimal ANESTHESIA: Sedation COMPLICATIONS: None OPERATIVE PROCEDURE: Patient was brought and placed on the operative table in the supine position. The patient was sedated per anesthesia that time. The chest and neck were prepped and draped in usual sterile fashion. First attempts were made at identifying the right internal jugular vein. Under ultrasound the vein was visualized but we could not thread the guidewire. For that reason I aborted the right hand side and moved to the left. The ultrasound probe was used to identify the location of the left internal jugular vein. The skin was localized with lidocaine. The Seldinger needle was advanced into the IJ under ultrasound guidance. The wire was advanced through the needle under fluoroscopic guidance into the superior vena cava. A port pocket was created in the left infraclavicular location. The catheter was tunneled from the wire entrance site to the port pocket. The port was then connected to the catheter. The dilator introducer was threaded over the guidewire. The guidewire and dilator were then removed. The catheter was advanced through the introducer and introducer was then removed. The tip was seen to be in the right atrial junction. Port was flushed with both saline and a Hep-Lock solution. There was good flow both in and out of the port. The port was sutured in underlying tissues using 3-0 silk sutures. The subcutaneous tissues were reapproximated using 3-0 Vicryl sutures and the skin at both locations using 4-0 Monocryl sutures. Steri-Strips and sterile dressings then applied. DISPOSITION: Stable to recovery room
--- NOTE | 2017-08-28 14:08 | XR ---
EXAMINATION TYPE: XR chest 1V confirm line [facility] DATE OF EXAM: 08/28/2017 COMPARISON: 08/28/2017 HISTORY: Left Mediport placement. TECHNIQUE: Single frontal view of the chest is obtained. FINDINGS: There is redemonstration of chronic interstitial prominence. Left-sided Mediport has been placed in the interim with its distal tip in the superior vena cava. No evidence of postprocedural pn eumothorax. Advanced degenerative changes of the right glenohumeral and acromioclavicular joint are s een with high riding right humeral head suggesting chronic rotator cuff tear. Cardiomediastinal silho uette is again mildly enlarged. IMPRESSION: Interval insertion of a left-sided MediPort without postprocedural pneumothorax.
--- NOTE | 2017-08-28 15:11 | FL ---
Fluoroscopy HISTORY: Central venous catheter placement 1.09 minutes fluoroscopy time supplied to the referring clinician. 1 intraoperative C-arm images doc ument the procedure. See dictated report from surgery.
[2017-08-28] MEDS: ALLOPURINOL 100 MG TAB PO SCH (15:48)
[2017-08-28] MEDS: amLODIPine 5 MG TAB PO SCH (15:48)
[2017-08-28] MEDS: ATORVASTATIN 10 MG TAB PO SCH (15:48)
[2017-08-28] MEDS: GABAPENTIN 400 MG CAP PO SCH ×2 (15:48→22:37)
[2017-08-28 17:11] LABS: Glucose,Whole Blood 142 mg/dL (75-99)
[2017-08-28 20:04] LABS: Glucose,Whole Blood 233 mg/dL (75-99)
[2017-08-28] MEDS: MONTELUKAST 10 MG TAB PO SCH (22:37)
[2017-08-28] MEDS: INSULIN DETEMIR 100 UNIT/ML 10 ML VIAL SQ SCH (22:37)
[2017-08-28] MEDS: HYDROcodone/APAP 5-325MG 1 EACH TAB PO PRN (23:50)
[2017-08-29 01:53] LABS: Glucose,Whole Blood 145 mg/dL (75-99)
[2017-08-29] MEDS: INSULIN ASPART 100 UNIT/ML 1 ML 10 ML VIAL SQ SCH ×5 (02:06→20:59)
[2017-08-29] MEDS: LEVOTHYROXINE 75 MCG TAB PO SCH (06:30)
[2017-08-29 07:14] LABS: Glucose,Whole Blood 77 mg/dL (75-99)
[2017-08-29] MEDS: GABAPENTIN 400 MG CAP PO SCH ×2 (07:57→20:51)
[2017-08-29] MEDS: glipiZIDE 5 MG TAB PO SCH ×2 (07:57→20:51)
[2017-08-29] MEDS: amLODIPine 5 MG TAB PO SCH (07:58)
[2017-08-29] MEDS: ALLOPURINOL 100 MG TAB PO SCH (07:58)
[2017-08-29] MEDS: ATORVASTATIN 10 MG TAB PO SCH (07:58)
[2017-08-29] MEDS: METOPROLOL SUCCINATE (ER) 100 MG TAB.ER.24H PO SCH (07:58)
[2017-08-29] MEDS: PANTOPRAZOLE 40 MG TABLET PO SCH ×2 (07:58→18:17)
--- NOTE | 2017-08-29 09:09 | US ---
Therapeutic paracentesis. DATE OF EXAM: 08/27/2017 CLINICAL HISTORY: Ascites The procedure was discussed with the patient. The risks, complications, benefits, and alternatives we re discussed and any questions were answered. Informed consent was obtained. The patient was placed s upine on the ultrasound table and prepped and draped in the usual sterile fashion. All elements of maximal barrier technique were utilized. Under ultrasound guidance, access into the right lower quadrant was obtained, via the paracentesis catheter system and direct ultrasound guidanc e. Approximately 3.2 liters of straw-colored fluid was removed. The patient was stable throughout the pr ocedure and remained stable upon discharge from Department of Radiology. IMPRESSION: Successful therapeutic paracentesis under ultrasound guidance.
--- NOTE | 2017-08-29 10:31 | P.PN ---
Subjective Patient is seen in follow-up for acute kidney injury. Her baseline creatinine is near 1 and peaked at 1.3 this admission. It was down to 1.1 as of yesterday. Labs from today are pending at this time. Patient presented with abdominal distention and underwent paracentesis on August 26 with 3.2 L removed. Diuretics are currently held. She is currently sitting up in chair. Admits to good urine output. No vomiting or diarrhea. Vital signs are stable. General: The patient appeared well nourished and normally developed. HEENT: Head exam is unremarkable. Neck is without jugular venous distension. LUNGS: Lungs are clear to auscultation and percussion. Breath sounds decreased. HEART: Rate and Rhythm are regular. First and second heart sounds normal. No murmurs, rubs or gallops. ABDOMEN: Abdominal exam reveals normal bowel sounds. Soft. EXTREMITITES: Trace edema. Objective - Vital Signs Vital signs: Vital Signs Temp 97.7 F 08/29/17 07:45 Pulse 59 L 08/29/17 07:45 Resp 20 08/29/17 07:45 BP 160/95 08/29/17 07:45 Pulse Ox 92 L 08/29/17 07:45 Intake & Output 08/28/17 08/29/17 08/29/17 18:59 06:59 18:59 Intake Total 300 590 400 Output Total 10 Balance 290 590 400 Weight 101 kg Intake: IV 300 Oral 590 400 Output: Estimated Blood Loss 10 Other: Voiding Method Toilet Toilet Toilet Incontinent Incontinent Incontinent # Voids 3 2 - Labs CBC & Chem 7: 08/28/17 06:39 08/28/17 06:39 Labs: Abnormal Lab Results - Last 24 Hours (Table) 08/28/17 08/28/17 08/28/17 Range/Units 10:48 11:56 17:10 POC Glucose (mg/dL) 185 H 135 H 142 H (75-99) mg/dL 08/28/17 08/29/17 Range/Units 20:02 01:51 POC Glucose (mg/dL) 233 H 145 H (75-99) mg/dL Assessment and Plan Plan: Assessment: 1. Nonoliguric acute kidney injury mostly prerenal secondary to diuresis. Creatinine peaked at 1.3 this admission and is down to 1.1 as of yesterday. Baseline creatinine near 1. 2. Ascites status post paracentesis on August 26 with 3.2 L drained. 3. 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 Oncology following. 4. Insulin-dependent diabetes mellitus. 5. Benign hypertension. Blood pressures on the higher side. Plan: Continue to hold diuretics. Check urinalysis. Maintain current antihypertensives including when necessary hydralazine. Repeat electrolytes in the morning. If GFR near baseline, I will resume diuretics.
[2017-08-29 11:44] LABS: Glucose,Whole Blood 251 mg/dL (75-99)
--- NOTE | 2017-08-29 12:07 | P.PN ---
Subjective Progress Note Date: 08/29/17 Principal diagnosis: Ovarian mass Patient feels well today. Minimal discomfort at Port-A-Cath insertion site. No shortness of breath. Objective - Vital Signs Vital signs: Vital Signs Temp 97.7 F 08/29/17 07:45 Pulse 59 L 08/29/17 07:45 Resp 20 08/29/17 07:45 BP 160/95 08/29/17 07:45 Pulse Ox 92 L 08/29/17 07:45 Intake & Output 08/28/17 08/29/17 08/29/17 18:59 06:59 18:59 Intake Total 300 590 400 Output Total 10 Balance 290 590 400 Weight 101 kg Intake: IV 300 Oral 590 400 Output: Estimated Blood Loss 10 Other: Voiding Method Toilet Toilet Toilet Incontinent Incontinent Incontinent # Voids 3 2 - Exam Port-A-Cath incision sites with dressings intact and clean - Labs CBC & Chem 7: 08/28/17 06:39 08/28/17 06:39 Labs: Abnormal Lab Results - Last 24 Hours (Table) 08/28/17 08/28/17 08/29/17 Range/Units 17:10 20:02 01:51 POC Glucose (mg/dL) 142 H 233 H 145 H (75-99) mg/dL 08/29/17 Range/Units 11:31 POC Glucose (mg/dL) 251 H (75-99) mg/dL Assessment and Plan (1) Pelvic mass in female Narrative/Plan: May utilize Port-A-Cath when necessary. We'll sign off at this point. Please contact if needed. Current Visit: Yes Status: Acute Priority: High Code(s): R19.00 - INTRA- ABD AND PELVIC SWELLING, MASS AND LUMP, UNSP SITE SNOMED Code(s): 71043559
[2017-08-29] MEDS ORDERED: ALPRAZolam 0.25 MG TAB PO PRN (12:48)
--- NOTE | 2017-08-29 15:30 | P.PN ---
Subjective This is a pleasant 86 years old female with past medical history of DM, hyperlipidemia, hypertension, hypothyroidism, hip replacement, next surgery with recent cellulitis of her toe who was transferred from [facility] after patient was found to have abdominal mass Patient originally presented to the hospital with coffee ground vomitus of one- day duration, patient was complaining of from loose bowel movement for about one month and is associated with right lower quadrant abdominal pain which is mild nonspecific with no radiation currently the patient abdominal pain is controlled and she doesn't have the vomiting anymore only nauseated, computed tomography scan of the abdomen and pelvis [in the paper chart] shows moderate ascites with nodular surface of the liver with mild splenomegaly likely due to cirrhosis and portal hypertension Complex cystic lesions in the right pelvis 9.9 cm possibly adnexal in origin Patient has abdominal distention which is starts about 3-4 months and was gradually progressive 08/26/2017 Patient was sitting in the chair, feeling generalized weak, with some dizziness , her abdomen is still distended with few times of vomiting, however her diarrhea has stopped, workup have shown so far to masses when the pelvis and the second is related to her left kidney, also she is new onset cirrhosis with ascites, but with no breathing difficulties, her hemoglobin is still low at 9, creatinine 0.9, CA-125 Ag high at 420 08/27/17 pt clinically looks the same , she still has abd distension, i discussed the case with Stove Fitter team , she might benefit from paracentasis, her creatinine is up to 1.34 , no chest pain or dyspnea All systems: negative Constitutional: Denies chills, Denies fever Eyes: denies blurred vision, denies pain Ears, nose, mouth and throat: Denies headache, Denies sore throat Cardiovascular: Denies chest pain, Denies shortness of breath Respiratory: Reports congestion, Reports home oxygen, Denies cough Gastrointestinal: Denies abdominal pain, Denies diarrhea, Denies nausea, Denies vomiting Musculoskeletal: Denies myalgias Integumentary: Denies pruritus, Denies rash Neurological: Denies numbness, Denies weakness Psychiatric: Denies anxiety, Denies depression Endocrine: Denies fatigue, Denies weight change Objective - Vital Signs Vital signs: Vital Signs Temp 98 F 08/29/17 14:20 Pulse 60 08/29/17 14:20 Resp 16 08/29/17 14:20 BP 142/63 08/29/17 14:20 Pulse Ox 92 L 08/29/17 14:20 Intake & Output 08/28/17 08/29/17 08/29/17 18:59 06:59 18:59 Intake Total 294 380 4946 Output Total 10 1 Balance 290 590 999 Weight 101 kg Intake: IV 300 Oral 590 1000 Output: Urine 1 Estimated Blood Loss 10 Other: Voiding Method Toilet Toilet Toilet Incontinent Incontinent Incontinent # Voids 3 2 3 - Exam Constitutional: No acute distress, conversant, pleasant Eyes: Anicteric sclerae, moist conjunctiva, no lid-lag PERRLA ENMT: NC/AT Oropharynx clear, no erythema, exudates Neck: Supple, FROM, no masses, or JVD No carotid bruits No thyromegaly Lungs: Clear to auscultation Clear to percussion Normal respiratory effort, no accessory muscle use Cardiovascular: Heart regular in rate and rhythm, No murmurs, gallops, or rubs No peripheral edema Abdominal: Soft Nontender, no guarding, rebound or rigidity Abdomen moving with respiration Normoactive bowel sounds Large Abdominal swelling, mostly due to her ascites No palpable mass abd distention Skin: Normal temperature, tone, texture, turgor No induration No subcutaneous nodules No rash, lesions No ulcers Extremities: No digital cyanosis No clubbing Pedal pulses intact and symmetrical Radial pulses intact and symmetrical Normal gait and station Psychiatric: Alert and oriented to person, place and time Appropriate affect Intact judgement Neuro: Muscles Strength 5/5 in all 4 extremities Sensation to light touch grossly present throughout Cranial nerves II-XII grossly intact - Labs CBC & Chem 7: 08/28/17 06:39 08/28/17 06:39 Labs: Abnormal Lab Results - Last 24 Hours (Table) 08/28/17 08/28/17 08/29/17 Range/Units 17:10 20:02 01:51 POC Glucose (mg/dL) 142 H 233 H 145 H (75-99) mg/dL 08/29/17 Range/Units 11:31 POC Glucose (mg/dL) 251 H (75-99) mg/dL Assessment and Plan Plan: -Cirrhosis of the liver with ascites, new onset, patient denies previous history of liver disease, today patient was on IV fluids which were DC'd, DC Xanax, call GI consult, Lasix 40 mg IV twice a day, however we are not sure if this is only related to her metastatic dis and portal HTN, s/p paracentssis -Coffee-ground vomiting, with a drop of hemoglobin but stable at 9 then to 7.8 and 8.2 and , DC Zantac, start Protonix, DC NSAIDs, call GI consult, check for occult blood in stool and iron study -Chronic diarrhea for 3 months, mostly related to her abdominal mass and or cirrhosis,resolving , however patient doesn't have any loose bowel movement on -Pelvic mass, possibly related to right-sided adnexia, we'll check ultrasound of the abdomen and pelvis: Right adnexal complex mass about 10 cm, 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, CEA-125 levels are pending and CA-125 is high at 420 which is suspcious for malignancy , oncology team evaluated pt and recommended chemotherapy and paracentasis and f/u outpt , for med-port placement today -Left kidney cystic lesion: discussed with the Stove Fitter team , pt would follow up with oncology team and reassess , cr is up today , f/u as outpt -Hypertension on amlodipine -DM continue with the glipizide and Levemir 20 units daily at bedtime -RADHA: cr up to 1.34, down to 1.1 GI prophylaxis continue with Protonix DVT prophylaxis continue with SCDs, patient is high-risk for bleeding therefore no heparin Prognosis is guarded given her multiple comorbidities and advanced age
[2017-08-29 17:01] LABS: Glucose,Whole Blood 199 mg/dL (75-99)
[2017-08-29 20:06] LABS: Glucose,Whole Blood 223 mg/dL (75-99)
[2017-08-29 20:06] LABS: Appearance,Urine Clear (Clear); Bacteria,Urine Rare /hpf; Bilirubin,Urine Negative (Negative); Blood,Urine Trace (Negative); Color,Urine Yellow; Glucose,Urine (UA) Negative (Negative); Hyaline Casts,Urine 4 /lpf (0-2); Ketones,Urine Negative (Negative); Leukocyte Esterase,Urine Negative (Negative); Mucus,Urine Rare /hpf; Nitrite,Urine Negative (Negative); PH, Urine 5.5 (5.0-8.0); Protein,Urine 2+ (Negative); RBC,Urine <1 /hpf (0-5); Specific Gravity,Urine 1.015 (1.001-1.035); Squamous Epithelial Cell,Urine 2 /hpf (0-4); Urobilinogen,Urine <2.0 mg/dL (<2.0); WBC,Urine 4 /hpf (0-5)
[2017-08-29] MEDS: MONTELUKAST 10 MG TAB PO SCH (20:51)
[2017-08-29] MEDS: INSULIN DETEMIR 100 UNIT/ML 10 ML VIAL SQ SCH (21:01)
[2017-08-30 01:52] LABS: Glucose,Whole Blood 171 mg/dL (75-99)
[2017-08-30] MEDS: INSULIN ASPART 100 UNIT/ML 1 ML 10 ML VIAL SQ SCH ×5 (03:52→21:11)
[2017-08-30] MEDS: LEVOTHYROXINE 75 MCG TAB PO SCH (06:26)
[2017-08-30 07:05] LABS: Basophils % (A) 0 %; Eosinophils # (A) 0.2 k/uL (0-0.7); Eosinophils % (A) 5 %; HCT 25.4 % (34.0-46.0); HGB 8.3 gm/dL (11.4-16.0); Lymphocytes # (A) 0.9 k/uL (1.0-4.8); Lymphocytes % (A) 24 %; MCHC 32.6 g/dL (31.0-37.0); MCV 91.9 fL (80.0-100.0); Mean Platelet Volume 7.2; Monocytes # (A) 0.3 k/uL (0-1.0); Monocytes % (A) 8 %; Neutrophils # (A) 2.2 k/uL (1.3-7.7); Neutrophils % (A) 60 %; Platelet Count 150 k/uL (150-450); RBC 2.77 m/uL (3.80-5.40); RDW 15.7 % (11.5-15.5); WBC 3.7 k/uL (3.8-10.6)
[2017-08-30 07:19] LABS: Calcium 8.1 mg/dL (8.4-10.2); Magnesium 1.8 mg/dL (1.6-2.3); Potassium 4.5 mmol/L (3.5-5.1)
[2017-08-30 07:54] LABS: Glucose,Whole Blood 87 mg/dL (75-99)
[2017-08-30] MEDS: METOPROLOL SUCCINATE (ER) 100 MG TAB.ER.24H PO SCH (08:11)
[2017-08-30] MEDS: PANTOPRAZOLE 40 MG TABLET PO SCH ×2 (08:12→17:39)
[2017-08-30] MEDS: amLODIPine 5 MG TAB PO SCH (08:12)
[2017-08-30] MEDS: GABAPENTIN 400 MG CAP PO SCH ×2 (08:12→21:09)
[2017-08-30] MEDS: ALLOPURINOL 100 MG TAB PO SCH (08:12)
[2017-08-30] MEDS: glipiZIDE 5 MG TAB PO SCH ×2 (08:12→21:10)
[2017-08-30] MEDS: ATORVASTATIN 10 MG TAB PO SCH (08:12)
[2017-08-30] MEDS ORDERED: hydrALAZINE HCL 25 MG TAB PO SCH (09:15)
--- NOTE | 2017-08-30 10:30 | P.PN ---
Subjective This is a pleasant 86 years old female with past medical history of DM, hyperlipidemia, hypertension, hypothyroidism, hip replacement, next surgery with recent cellulitis of her toe who was transferred from [facility] after patient was found to have abdominal mass Patient originally presented to the hospital with coffee ground vomitus of one- day duration, patient was complaining of from loose bowel movement for about one month and is associated with right lower quadrant abdominal pain which is mild nonspecific with no radiation currently the patient abdominal pain is controlled and she doesn't have the vomiting anymore only nauseated, computed tomography scan of the abdomen and pelvis [in the paper chart] shows moderate ascites with nodular surface of the liver with mild splenomegaly likely due to cirrhosis and portal hypertension Complex cystic lesions in the right pelvis 9.9 cm possibly adnexal in origin Patient has abdominal distention which is starts about 3-4 months and was gradually progressive 08/26/2017 Patient was sitting in the chair, feeling generalized weak, with some dizziness , her abdomen is still distended with few times of vomiting, however her diarrhea has stopped, workup have shown so far to masses when the pelvis and the second is related to her left kidney, also she is new onset cirrhosis with ascites, but with no breathing difficulties, her hemoglobin is still low at 9, creatinine 0.9, CA-125 Ag high at 420 08/27/17 pt clinically looks the same , she still has abd distension, i discussed the case with Monitoring And Evaluation Advisor team , she might benefit from paracentasis, her creatinine is up to 1.34 , no chest pain or dyspnea 08/30/2017 Patient looks clinically the same, she still have abdominal distention, discussed the case with Dr. Nascimento from oncology team, patient needs to get first chemo therapy around while in house before she is going to rehab, paracentesis results are still pending. her creatinine is 1.2, no chest pain or dyspnea All systems: negative Constitutional: Denies chills, Denies fever Eyes: denies blurred vision, denies pain Ears, nose, mouth and throat: Denies headache, Denies sore throat Cardiovascular: Denies chest pain, Denies shortness of breath Respiratory: Reports congestion, Reports home oxygen, Denies cough Gastrointestinal: Denies abdominal pain, Denies diarrhea, Denies nausea, Denies vomiting Musculoskeletal: Denies myalgias Integumentary: Denies pruritus, Denies rash Neurological: Denies numbness, Denies weakness Psychiatric: Denies anxiety, Denies depression Endocrine: Denies fatigue, Denies weight change Objective - Vital Signs Vital signs: Vital Signs Temp 98.2 F 08/30/17 07:05 Pulse 69 08/30/17 07:05 Resp 18 08/30/17 07:05 BP 192/77 08/30/17 07:05 Pulse Ox 90 L 08/30/17 07:05 Intake & Output 08/29/17 08/30/17 08/30/17 18:59 06:59 18:59 Intake Total 1000 600 Output Total 1 Balance 999 600 Intake: Oral 1000 600 Output: Urine 1 Other: Voiding Method Toilet Toilet Toilet Incontinent Incontinent Incontinent # Voids 3 1 - Exam Constitutional: No acute distress, conversant, pleasant Eyes: Anicteric sclerae, moist conjunctiva, no lid-lag PERRLA ENMT: NC/AT Oropharynx clear, no erythema, exudates Neck: Supple, FROM, no masses, or JVD No carotid bruits No thyromegaly Lungs: Clear to auscultation Clear to percussion Normal respiratory effort, no accessory muscle use Cardiovascular: Heart regular in rate and rhythm, No murmurs, gallops, or rubs No peripheral edema Abdominal: Soft Nontender, no guarding, rebound or rigidity Abdomen moving with respiration Normoactive bowel sounds Large Abdominal swelling, mostly due to her ascites No palpable mass abd distention Skin: Normal temperature, tone, texture, turgor No induration No subcutaneous nodules No rash, lesions No ulcers Extremities: No digital cyanosis No clubbing Pedal pulses intact and symmetrical Radial pulses intact and symmetrical Normal gait and station Psychiatric: Alert and oriented to person, place and time Appropriate affect Intact judgement Neuro: Muscles Strength 5/5 in all 4 extremities Sensation to light touch grossly present throughout Cranial nerves II-XII grossly intact - Labs CBC & Chem 7: 08/30/17 06:32 08/30/17 06:32 Labs: Abnormal Lab Results - Last 24 Hours (Table) 08/29/17 08/29/17 08/29/17 Range/Units 11:31 16:58 19:05 WBC (3.8-10.6) k/uL RBC (3.80-5.40) m/uL Hgb (11.4-16.0) gm/dL Hct (34.0-46.0) % RDW (11.5-15.5) % Lymphocytes # (1.0-4.8) k/uL Chloride (98-107) mmol/L BUN (7-17) mg/dL Creatinine (0.52-1.04) mg/dL Glucose (74-99) mg/dL POC Glucose (mg/dL) 251 H 199 H (75-99) mg/dL Calcium (8.4-10.2) mg/dL Urine Protein (Negative) Urine Blood (Negative) Urine Bacteria (None) /hpf Hyaline Casts (0-2) /lpf Urine Mucus (None) /hpf Stool Occult Blood Positive H (Negative) 08/29/17 08/29/17 08/30/17 Range/Units 19:05 20:02 01:46 WBC (3.8-10.6) k/uL RBC (3.80-5.40) m/uL Hgb (11.4-16.0) gm/dL Hct (34.0-46.0) % RDW (11.5-15.5) % Lymphocytes # (1.0-4.8) k/uL Chloride (98-107) mmol/L BUN (7-17) mg/dL Creatinine (0.52-1.04) mg/dL Glucose (74-99) mg/dL POC Glucose (mg/dL) 223 H 171 H (75-99) mg/dL Calcium (8.4-10.2) mg/dL Urine Protein 2+ H (Negative) Urine Blood Trace H (Negative) Urine Bacteria Rare H (None) /hpf Hyaline Casts 4 H (0-2) /lpf Urine Mucus Rare H (None) /hpf Stool Occult Blood (Negative) 08/30/17 08/30/17 Range/Units 06:32 06:32 WBC 3.7 L (3.8-10.6) k/uL RBC 2.77 L (3.80-5.40) m/uL Hgb 8.3 L (11.4-16.0) gm/dL Hct 25.4 L (34.0-46.0) % RDW 15.7 H (11.5-15.5) % Lymphocytes # 0.9 L (1.0-4.8) k/uL Chloride 108 H (98-107) mmol/L BUN 41 H (7-17) mg/dL Creatinine 1.25 H (0.52-1.04) mg/dL Glucose 72 L (74-99) mg/dL POC Glucose (mg/dL) (75-99) mg/dL Calcium 8.1 L (8.4-10.2) mg/dL Urine Protein (Negative) Urine Blood (Negative) Urine Bacteria (None) /hpf Hyaline Casts (0-2) /lpf Urine Mucus (None) /hpf Stool Occult Blood (Negative) Assessment and Plan Plan: -Cirrhosis of the liver with ascites, new onset, patient denies previous history of liver disease, today patient was on IV fluids which were DC'd, DC Xanax,GI consult is appreciated and they recommended EGD, Lasix 40 mg IV twice a day -Coffee-ground vomiting, with a drop of hemoglobin but stable at 9 then to 7.8 and 8.2 and , DC Zantac, start Protonix, DC NSAIDs, call GI consult, check for occult blood in stool -Chronic diarrhea for 3 months, mostly related to her abdominal mass and or cirrhosis,resolved -Pelvic mass, possibly related to right-sided adnexia, we'll check ultrasound of the abdomen and pelvis: Right adnexal complex mass about 10 cm, 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, CEA-125 levels are pending and CA-125 is high at 420 which is suspcious for malignancy , oncology team evaluated pt and recommended chemotherapy with first round as in-house 'paracentasis results are pending, s/ p med-port placement -Left kidney cystic lesion: discussed with the Monitoring And Evaluation Advisor team , pt would follow up with oncology team and reassess , cr is up today , f/u as outpt -Hypertension on amlodipine -DM continue with the glipizide and Levemir 20 units daily at bedtime -RADHA: cr up to 1.34, down to 1.1 and 1.2 GI prophylaxis continue with Protonix DVT prophylaxis continue with SCDs, patient is high-risk for bleeding therefore no heparin Prognosis is guarded given her multiple comorbidities and advanced age
[2017-08-30] MEDS ORDERED: FUROSEMIDE 10 MG/ML 2 ML VIAL IV ONE (11:14)
--- NOTE | 2017-08-30 11:18 | P.PN ---
Subjective Patient is seen in follow-up for acute kidney injury. Her baseline creatinine is near 1 and peaked at 1.3 this admission. It is 1.25 today. Patient presented with abdominal distention and underwent paracentesis on August 26 with 3.2 L removed. Diuretics are currently held. She is currently resting in bed. Admits to good urine output. No vomiting or diarrhea. Admits to swelling in her legs. Vital signs are stable. General: The patient appeared well nourished and normally developed. HEENT: Head exam is unremarkable. Neck is without jugular venous distension. LUNGS: Lungs are clear to auscultation and percussion. Breath sounds decreased. HEART: Rate and Rhythm are regular. First and second heart sounds normal. No murmurs, rubs or gallops. ABDOMEN: Abdominal exam reveals normal bowel sounds. Soft. EXTREMITITES: 1+ edema. Objective - Vital Signs Vital signs: Vital Signs Temp 98.2 F 08/30/17 07:05 Pulse 70 08/30/17 10:37 Resp 18 08/30/17 07:05 BP 157/68 08/30/17 10:37 Pulse Ox 92 L 08/30/17 10:37 Intake & Output 08/29/17 08/30/17 08/30/17 18:59 06:59 18:59 Intake Total 1000 600 Output Total 1 Balance 999 600 Intake: Oral 1000 600 Output: Urine 1 Other: Voiding Method Toilet Toilet Toilet Incontinent Incontinent Incontinent # Voids 3 1 - Labs CBC & Chem 7: 08/30/17 06:32 08/30/17 06:32 Labs: Abnormal Lab Results - Last 24 Hours (Table) 08/29/17 08/29/17 08/29/17 Range/Units 11:31 16:58 19:05 WBC (3.8-10.6) k/uL RBC (3.80-5.40) m/uL Hgb (11.4-16.0) gm/dL Hct (34.0-46.0) % RDW (11.5-15.5) % Lymphocytes # (1.0-4.8) k/uL Chloride (98-107) mmol/L BUN (7-17) mg/dL Creatinine (0.52-1.04) mg/dL Glucose (74-99) mg/dL POC Glucose (mg/dL) 251 H 199 H (75-99) mg/dL Calcium (8.4-10.2) mg/dL Urine Protein (Negative) Urine Blood (Negative) Urine Bacteria (None) /hpf Hyaline Casts (0-2) /lpf Urine Mucus (None) /hpf Stool Occult Blood Positive H (Negative) 08/29/17 08/29/17 08/30/17 Range/Units 19:05 20:02 01:46 WBC (3.8-10.6) k/uL RBC (3.80-5.40) m/uL Hgb (11.4-16.0) gm/dL Hct (34.0-46.0) % RDW (11.5-15.5) % Lymphocytes # (1.0-4.8) k/uL Chloride (98-107) mmol/L BUN (7-17) mg/dL Creatinine (0.52-1.04) mg/dL Glucose (74-99) mg/dL POC Glucose (mg/dL) 223 H 171 H (75-99) mg/dL Calcium (8.4-10.2) mg/dL Urine Protein 2+ H (Negative) Urine Blood Trace H (Negative) Urine Bacteria Rare H (None) /hpf Hyaline Casts 4 H (0-2) /lpf Urine Mucus Rare H (None) /hpf Stool Occult Blood (Negative) 08/30/17 08/30/17 Range/Units 06:32 06:32 WBC 3.7 L (3.8-10.6) k/uL RBC 2.77 L (3.80-5.40) m/uL Hgb 8.3 L (11.4-16.0) gm/dL Hct 25.4 L (34.0-46.0) % RDW 15.7 H (11.5-15.5) % Lymphocytes # 0.9 L (1.0-4.8) k/uL Chloride 108 H (98-107) mmol/L BUN 41 H (7-17) mg/dL Creatinine 1.25 H (0.52-1.04) mg/dL Glucose 72 L (74-99) mg/dL POC Glucose (mg/dL) (75-99) mg/dL Calcium 8.1 L (8.4-10.2) mg/dL Urine Protein (Negative) Urine Blood (Negative) Urine Bacteria (None) /hpf Hyaline Casts (0-2) /lpf Urine Mucus (None) /hpf Stool Occult Blood (Negative) Assessment and Plan Plan: Assessment: 1. Nonoliguric acute kidney injury mostly prerenal, initially improved with IV hydration. Creatinine peaked at 1.3 this admission and is 1.25 today. Baseline creatinine near 1. 2. Ascites status post paracentesis on August 26 with 3.2 L drained. 3. 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 Oncology following. 4. Insulin-dependent diabetes mellitus. 5. Benign hypertension. Blood pressures on the higher side. Partially volume sensitive. 6. Lower extremity edema. 7. Proteinuria which is likely secondary to underlying diabetic kidney disease. 8. Anemia. Iron deficiency noted. Plan: Lasix 20 mg IV once today. Maintain current antihypertensives including when necessary hydralazine. Ferrlecit 125 mg IV daily for 3 days. First dose today. Repeat electrolytes in the morning.
[2017-08-30 11:54] LABS: Glucose,Whole Blood 147 mg/dL (75-99)
[2017-08-30] MEDS: SODIUM FERRIC GLUCONAT-SUCROSE 125 MG in SODIUM CHLORIDE 0.9% 100 ML IVPB SCH ×2 (12:14→14:03)
[2017-08-30] MEDS: HYDROcodone/APAP 5-325MG 1 EACH TAB PO PRN ×2 (15:48→21:10)
[2017-08-30] MEDS: hydrALAZINE HCL 25 MG TAB PO SCH ×2 (15:50→21:11)
--- NOTE | 2017-08-30 16:27 | P.PN ---
Subjective Progress Note Date: 08/30/17 Principal diagnosis: Abdominal Ascites Patient seen in follow-up today, her abdomen is feeling more distended and firm , she is status post paracentesis a couple days prior, awaiting final pathology. Objective - Vital Signs Vital signs: Vital Signs Temp 98.1 F 08/30/17 15:40 Pulse 68 08/30/17 15:40 Resp 18 08/30/17 15:40 BP 161/67 08/30/17 15:40 Pulse Ox 94 L 08/30/17 15:40 Intake & Output 08/29/17 08/30/17 08/30/17 18:59 06:59 18:59 Intake Total 1000 600 Output Total 1 Balance 999 600 Weight 100 kg Intake: Oral 1000 600 Output: Urine 1 Other: Voiding Method Toilet Toilet Toilet Incontinent Incontinent Incontinent # Voids 3 1 - Constitutional General appearance: Present: cooperative, no acute distress - EENT Eyes: Present: EOMI, poor dentition ENT: Present: hard of hearing, NA/AT, normal oropharynx - Neck Neck: Present: normal ROM - Respiratory Respiratory: bilateral: diminished (bibasilar) - Cardiovascular Rhythm: regular Heart sounds: normal: S1, S2 - Peripheral edema leg Peripheral Edema: bilateral: 2+ - Gastrointestinal General gastrointestinal: Present: distended, soft - Integumentary Integumentary: Present: pale - Neurologic Neurologic: Present: CNII-XII intact - Musculoskeletal Musculoskeletal: Present: generalized weakness - Psychiatric Psychiatric: Present: A&O x's 3, appropriate affect, intact judgment & insight - Labs CBC & Chem 7: 08/30/17 06:32 08/30/17 06:32 Labs: Abnormal Lab Results - Last 24 Hours (Table) 08/29/17 08/29/17 08/29/17 Range/Units 16:58 19:05 19:05 WBC (3.8-10.6) k/uL RBC (3.80-5.40) m/uL Hgb (11.4-16.0) gm/dL Hct (34.0-46.0) % RDW (11.5-15.5) % Lymphocytes # (1.0-4.8) k/uL Chloride (98-107) mmol/L BUN (7-17) mg/dL Creatinine (0.52-1.04) mg/dL Glucose (74-99) mg/dL POC Glucose (mg/dL) 199 H (75-99) mg/dL Calcium (8.4-10.2) mg/dL Urine Protein 2+ H (Negative) Urine Blood Trace H (Negative) Urine Bacteria Rare H (None) /hpf Hyaline Casts 4 H (0-2) /lpf Urine Mucus Rare H (None) /hpf Stool Occult Blood Positive H (Negative) 08/29/17 08/30/17 08/30/17 Range/Units 20:02 01:46 06:32 WBC (3.8-10.6) k/uL RBC (3.80-5.40) m/uL Hgb (11.4-16.0) gm/dL Hct (34.0-46.0) % RDW (11.5-15.5) % Lymphocytes # (1.0-4.8) k/uL Chloride 108 H (98-107) mmol/L BUN 41 H (7-17) mg/dL Creatinine 1.25 H (0.52-1.04) mg/dL Glucose 72 L (74-99) mg/dL POC Glucose (mg/dL) 223 H 171 H (75-99) mg/dL Calcium 8.1 L (8.4-10.2) mg/dL Urine Protein (Negative) Urine Blood (Negative) Urine Bacteria (None) /hpf Hyaline Casts (0-2) /lpf Urine Mucus (None) /hpf Stool Occult Blood (Negative) 08/30/17 08/30/17 Range/Units 06:32 11:38 WBC 3.7 L (3.8-10.6) k/uL RBC 2.77 L (3.80-5.40) m/uL Hgb 8.3 L (11.4-16.0) gm/dL Hct 25.4 L (34.0-46.0) % RDW 15.7 H (11.5-15.5) % Lymphocytes # 0.9 L (1.0-4.8) k/uL Chloride (98-107) mmol/L BUN (7-17) mg/dL Creatinine (0.52-1.04) mg/dL Glucose (74-99) mg/dL POC Glucose (mg/dL) 147 H (75-99) mg/dL Calcium (8.4-10.2) mg/dL Urine Protein (Negative) Urine Blood (Negative) Urine Bacteria (None) /hpf Hyaline Casts (0-2) /lpf Urine Mucus (None) /hpf Stool Occult Blood (Negative) Assessment and Plan Plan: Impression 1- 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 Weakness/mobility Recommendations: 1- Diagnostic/Therapeutic Paracentesis - Awaiting final pathology - Review final path and if possible would like to initiate first chemotherapy as inpatient if the plan is for patient to go to outpatient rehab. 2- Reviewed likely diagnosis of abdominal malignancy with patient/daughter - over past weekend 3- Agree with LEASING COORDINATOR/Onc evaluation as suggested by Dr Soto, Dr. Landaverde discussed case with Dr Liu Tillman ([facility]-LEASING COORDINATOR/ONC)> he advised Diagnostic/ Therapeutic Paracentesis as above > starting Nirmal-adjuvant Chemotherapy and he will evaluate as out-patient later 5- Recommended Carboplatinum+Taxol Chemotherapy Q 21 days X 6 ( To receive 3 cycles before surgery and 3 cycles after surgery), discussed side effects 6- Mediport placement ( Dr Cline). Physician Attestation: I have completed the full history and physical of this patient and agree with dictation by Yamini Swann NP, Dictated as a scribe
[2017-08-30 17:26] LABS: Glucose,Whole Blood 282 mg/dL (75-99)
[2017-08-30] MEDS: FERROUS SULFATE 325 MG TAB PO SCH (17:38)
[2017-08-30 20:24] LABS: Glucose,Whole Blood 154 mg/dL (75-99)
[2017-08-30] MEDS: MONTELUKAST 10 MG TAB PO SCH (21:10)
[2017-08-30] MEDS: INSULIN DETEMIR 100 UNIT/ML 10 ML VIAL SQ SCH (21:11)
[2017-08-31 01:47] LABS: Glucose,Whole Blood 162 mg/dL (75-99)
[2017-08-31] MEDS: INSULIN ASPART 100 UNIT/ML 1 ML 10 ML VIAL SQ SCH ×5 (03:03→21:43)
[2017-08-31 04:56] LABS: Glucose,Whole Blood 139 mg/dL (75-99)
[2017-08-31] MEDS: LEVOTHYROXINE 75 MCG TAB PO SCH (06:10)
[2017-08-31 07:19] LABS: Glucose,Whole Blood 141 mg/dL (75-99)
[2017-08-31 07:57] LABS: Calcium 8.7 mg/dL (8.4-10.2); Potassium 4.7 mmol/L (3.5-5.1)
[2017-08-31] MEDS: HYDROcodone/APAP 5-325MG 1 EACH TAB PO PRN ×3 (07:59→23:39)
[2017-08-31] MEDS: glipiZIDE 5 MG TAB PO SCH ×2 (08:00→21:42)
[2017-08-31] MEDS: PANTOPRAZOLE 40 MG TABLET PO SCH ×2 (08:00→17:21)
[2017-08-31] MEDS: hydrALAZINE HCL 25 MG TAB PO SCH ×3 (08:00→21:43)
[2017-08-31] MEDS: GABAPENTIN 400 MG CAP PO SCH ×2 (08:00→21:42)
[2017-08-31] MEDS: amLODIPine 5 MG TAB PO SCH (08:00)
[2017-08-31] MEDS: METOPROLOL SUCCINATE (ER) 100 MG TAB.ER.24H PO SCH (08:00)
[2017-08-31] MEDS: FERROUS SULFATE 325 MG TAB PO SCH ×2 (08:00→17:21)
[2017-08-31] MEDS: ALLOPURINOL 100 MG TAB PO SCH (08:00)
[2017-08-31] MEDS: ATORVASTATIN 10 MG TAB PO SCH (08:01)
[2017-08-31 11:38] LABS: Glucose,Whole Blood 204 mg/dL (75-99)
--- NOTE | 2017-08-31 12:16 | P.PN ---
Subjective This is a pleasant 86 years old female with past medical history of DM, hyperlipidemia, hypertension, hypothyroidism, hip replacement, next surgery with recent cellulitis of her toe who was transferred from [facility] after patient was found to have abdominal mass Patient originally presented to the hospital with coffee ground vomitus of one- day duration, patient was complaining of from loose bowel movement for about one month and is associated with right lower quadrant abdominal pain which is mild nonspecific with no radiation currently the patient abdominal pain is controlled and she doesn't have the vomiting anymore only nauseated, computed tomography scan of the abdomen and pelvis [in the paper chart] shows moderate ascites with nodular surface of the liver with mild splenomegaly likely due to cirrhosis and portal hypertension Complex cystic lesions in the right pelvis 9.9 cm possibly adnexal in origin Patient has abdominal distention which is starts about 3-4 months and was gradually progressive 08/26/2017 Patient was sitting in the chair, feeling generalized weak, with some dizziness , her abdomen is still distended with few times of vomiting, however her diarrhea has stopped, workup have shown so far to masses when the pelvis and the second is related to her left kidney, also she is new onset cirrhosis with ascites, but with no breathing difficulties, her hemoglobin is still low at 9, creatinine 0.9, CA-125 Ag high at 420 08/27/17 pt clinically looks the same , she still has abd distension, i discussed the case with [employer] team , she might benefit from paracentasis, her creatinine is up to 1.34 , no chest pain or dyspnea 08/30/2017 Patient looks clinically the same, she still have abdominal distention, discussed the case with Dr. Nascimento from oncology team, patient needs to get first chemo therapy around while in house before she is going to rehab, paracentesis results are still pending. her creatinine is 1.2, no chest pain or dyspnea 08/31/2017 Patient has more abdominal distention today with some breathing difficulties, her breathing is better now after raising the head of bed Still pending the results of paracentesis, plan to get first chemotherapy while in house before going to [facility] All systems: negative Constitutional: Denies chills, Denies fever Eyes: denies blurred vision, denies pain Ears, nose, mouth and throat: Denies headache, Denies sore throat Cardiovascular: Denies chest pain, Denies shortness of breath Respiratory: Reports congestion, Reports home oxygen, Denies cough Gastrointestinal: Denies abdominal pain, Denies diarrhea, Denies nausea, Denies vomiting Musculoskeletal: Denies myalgias Integumentary: Denies pruritus, Denies rash Neurological: Denies numbness, Denies weakness Psychiatric: Denies anxiety, Denies depression Endocrine: Denies fatigue, Denies weight change Objective - Vital Signs Vital signs: Vital Signs Temp 98.2 F 08/31/17 10:19 Pulse 83 08/31/17 07:50 Resp 20 08/31/17 07:50 BP 155/72 08/31/17 07:50 Pulse Ox 93 L 08/31/17 07:51 Intake & Output 08/30/17 08/31/17 08/31/17 18:59 06:59 18:59 Output Total 1 Balance -1 Weight 102 kg Output: Urine 1 Other: Voiding Method Toilet Toilet Incontinent Incontinent # Voids 3 - Exam Constitutional: No acute distress, conversant, pleasant Eyes: Anicteric sclerae, moist conjunctiva, no lid-lag PERRLA ENMT: NC/AT Oropharynx clear, no erythema, exudates Neck: Supple, FROM, no masses, or JVD No carotid bruits No thyromegaly Lungs: Clear to auscultation Clear to percussion Normal respiratory effort, no accessory muscle use Cardiovascular: Heart regular in rate and rhythm, No murmurs, gallops, or rubs No peripheral edema Abdominal: Soft Nontender, no guarding, rebound or rigidity Abdomen moving with respiration Normoactive bowel sounds Large Abdominal swelling, mostly due to her ascites No palpable mass abd distention Skin: Normal temperature, tone, texture, turgor No induration No subcutaneous nodules No rash, lesions No ulcers Extremities: No digital cyanosis No clubbing Pedal pulses intact and symmetrical Radial pulses intact and symmetrical Normal gait and station Psychiatric: Alert and oriented to person, place and time Appropriate affect Intact judgement Neuro: Muscles Strength 5/5 in all 4 extremities Sensation to light touch grossly present throughout Cranial nerves II-XII grossly intact - Labs CBC & Chem 7: 08/30/17 06:32 08/31/17 07:17 Labs: Abnormal Lab Results - Last 24 Hours (Table) 08/30/17 08/30/17 08/30/17 Range/Units 11:38 17:13 20:20 BUN (7-17) mg/dL Creatinine (0.52-1.04) mg/dL Glucose (74-99) mg/dL POC Glucose (mg/dL) 147 H 282 H 154 H (75-99) mg/dL 08/31/17 08/31/17 08/31/17 Range/Units 01:42 04:48 07:16 BUN (7-17) mg/dL Creatinine (0.52-1.04) mg/dL Glucose (74-99) mg/dL POC Glucose (mg/dL) 162 H 139 H 141 H (75-99) mg/dL 08/31/17 Range/Units 07:17 BUN 43 H (7-17) mg/dL Creatinine 1.22 H (0.52-1.04) mg/dL Glucose 143 H (74-99) mg/dL POC Glucose (mg/dL) (75-99) mg/dL Assessment and Plan Plan: -Cirrhosis of the liver with ascites, new onset, patient denies previous history of liver disease, today patient was on IV fluids which were DC'd, DC Xanax,GI consult is appreciated and they recommended EGD, Lasix 40 mg IV twice a day -Coffee-ground vomiting, with a drop of hemoglobin but stable at 9 then to 7.8 and 8.2 and , DC Zantac, start Protonix, DC NSAIDs, call GI consult, check for occult blood in stool : Positive; pt spiked fever -Chronic diarrhea for 3 months, mostly related to her abdominal mass and or cirrhosis,resolved -Pelvic mass, possibly related to right-sided adnexia, we'll check ultrasound of the abdomen and pelvis: Right adnexal complex mass about 10 cm, 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, CEA-125 levels are pending and CA-125 is high at 420 which is suspcious for malignancy , oncology team evaluated pt and recommended chemotherapy with first round as in-house 'paracentasis results are pending, s/ p med-port placement -Left kidney cystic lesion: discussed with the [employer] team , pt would follow up with oncology team and reassess , cr is up today , f/u as outpt -Hypertension on amlodipine -DM continue with the glipizide and Levemir 20 units daily at bedtime -RADHA: cr up to 1.34, down to 1.1 and 1.2 GI prophylaxis continue with Protonix DVT prophylaxis continue with SCDs, patient is high-risk for bleeding therefore no heparin Prognosis is guarded given her multiple comorbidities and advanced age
--- NOTE | 2017-08-31 13:19 | US ---
EXAMINATION TYPE: US paracentesis abd w/image DATE OF EXAM: 08/31/2017 CLINICAL HISTORY: Ascites The procedure was discussed with the patient. The risks, complications, benefits, and alternatives we re discussed and any questions were answered. Informed consent was obtained. The patient was placed s upine on the ultrasound table and prepped and draped in the usual sterile fashion. All elements of maximal barrier technique were utilized. Under ultrasound guidance, access into the right lower quadrant was obtained, via the paracentesis catheter system and direct ultrasound guidanc e. Approximately 3.0 liters of straw-colored fluid was removed. The patient was stable throughout the pr ocedure and remained stable upon discharge from Department of Radiology. IMPRESSION: Successful therapeutic paracentesis under ultrasound guidance.
--- NOTE | 2017-08-31 14:26 | P.PN ---
Subjective Patient is seen in follow-up for acute kidney injury. Her baseline creatinine is near 1 and peaked at 1.3 this admission. It is 1.22 today. Patient presented with abdominal distention and underwent paracentesis on August 26 with 3.2 L removed. This morning she went paracentesis again with 3 L removed. She is currently resting in bed. Admits to good urine output. No vomiting or diarrhea. Vital signs are stable. General: The patient appeared well nourished and normally developed. HEENT: Head exam is unremarkable. Neck is without jugular venous distension. LUNGS: Lungs are clear to auscultation and percussion. Breath sounds decreased. HEART: Rate and Rhythm are regular. First and second heart sounds normal. No murmurs, rubs or gallops. ABDOMEN: Abdominal exam reveals normal bowel sounds. Soft. EXTREMITITES: Trace edema. Objective - Vital Signs Vital signs: Vital Signs Temp 98.2 F 08/31/17 10:19 Pulse 78 08/31/17 13:08 Resp 18 08/31/17 13:08 BP 136/66 08/31/17 13:08 Pulse Ox 97 08/31/17 12:34 Intake & Output 08/30/17 08/31/17 08/31/17 18:59 06:59 18:59 Output Total 1 Balance -1 Weight 102 kg Output: Urine 1 Other: Voiding Method Toilet Toilet Incontinent Incontinent # Voids 3 - Labs CBC & Chem 7: 08/30/17 06:32 08/31/17 07:17 Labs: Abnormal Lab Results - Last 24 Hours (Table) 08/30/17 08/30/17 08/31/17 Range/Units 17:13 20:20 01:42 BUN (7-17) mg/dL Creatinine (0.52-1.04) mg/dL Glucose (74-99) mg/dL POC Glucose (mg/dL) 282 H 154 H 162 H (75-99) mg/dL 08/31/17 08/31/17 08/31/17 Range/Units 04:48 07:16 07:17 BUN 43 H (7-17) mg/dL Creatinine 1.22 H (0.52-1.04) mg/dL Glucose 143 H (74-99) mg/dL POC Glucose (mg/dL) 139 H 141 H (75-99) mg/dL 08/31/17 Range/Units 11:36 BUN (7-17) mg/dL Creatinine (0.52-1.04) mg/dL Glucose (74-99) mg/dL POC Glucose (mg/dL) 204 H (75-99) mg/dL Assessment and Plan Plan: Assessment: 1. Nonoliguric acute kidney injury mostly prerenal, initially improved with IV hydration. Creatinine peaked at 1.3 this admission and is 1.22 today. Baseline creatinine near 1. 2. Ascites status post paracentesis on August 26 with 3.2 L drained and 08/31 with 3 L drained. 3. 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 Oncology following. 4. Insulin-dependent diabetes mellitus. 5. Benign hypertension. Controlled. Partially volume sensitive. 6. Lower extremity edema. 7. Proteinuria which is likely secondary to underlying diabetic kidney disease. 8. Anemia. Iron deficiency noted. Plan: Add lasix 20 mg daily. Maintain current antihypertensives including when necessary hydralazine. Ferrlecit 125 mg IV daily for 3 days. Second dose today. Repeat electrolytes in the morning.
[2017-08-31] MEDS ORDERED: FUROSEMIDE 20 MG TAB PO SCH (14:30)
[2017-08-31 14:59] LABS: Basophils % (A) 0 %; Eosinophils # (A) 0.2 k/uL (0-0.7); Eosinophils % (A) 3 %; HCT 29.6 % (34.0-46.0); HGB 9.5 gm/dL (11.4-16.0); Lymphocytes # (A) 0.5 k/uL (1.0-4.8); Lymphocytes % (A) 6 %; MCH 30.4 pg (25.0-35.0); MCHC 32.2 g/dL (31.0-37.0); MCV 94.4 fL (80.0-100.0); Mean Platelet Volume 8.9; Monocytes # (A) 0.4 k/uL (0-1.0); Monocytes % (A) 6 %; Neutrophils # (A) 6.3 k/uL (1.3-7.7); Neutrophils % (A) 84 %; Platelet Count 167 k/uL (150-450); RBC 3.13 m/uL (3.80-5.40); RDW 15.7 % (11.5-15.5); WBC 7.5 k/uL (3.8-10.6)
--- NOTE | 2017-08-31 16:03 | P.PN ---
Subjective Progress Note Date: 08/31/17 Principal diagnosis: Abdominal Ascites Patient seen in follow-up today,she just returned from her second paracentesis, where 3 Liters were removed. The Pathology of the first para fluid failed to show evidence of malignant cells. Objective - Vital Signs Vital signs: Vital Signs Temp 98.5 F 08/31/17 13:50 Pulse 79 08/31/17 13:50 Resp 20 08/31/17 13:50 BP 169/74 08/31/17 13:50 Pulse Ox 96 08/31/17 13:50 Intake & Output 08/30/17 08/31/17 08/31/17 18:59 06:59 18:59 Output Total 1 Balance -1 Weight 102 kg Output: Urine 1 Other: Voiding Method Toilet Toilet Incontinent Incontinent # Voids 3 - Constitutional General appearance: Present: cooperative, no acute distress - EENT Eyes: Present: EOMI, PERRLA, dentition normal ENT: Present: NA/AT, normal oropharynx - Neck Neck: Present: normal ROM - Respiratory Respiratory: bilateral: diminished (Lower Lobes) - Cardiovascular Rhythm: regular Heart sounds: normal: S1, S2 - Gastrointestinal General gastrointestinal: Present: distended, soft, tenderness - Integumentary Integumentary: Present: pale - Neurologic Neurologic: Present: CNII-XII intact - Musculoskeletal Musculoskeletal: Present: generalized weakness, strength equal bilaterally - Psychiatric Psychiatric: Present: A&O x's 3, appropriate affect, intact judgment & insight - Labs CBC & Chem 7: 08/31/17 07:17 08/31/17 07:17 Labs: Abnormal Lab Results - Last 24 Hours (Table) 08/30/17 08/30/17 08/31/17 Range/Units 17:13 20:20 01:42 BUN (7-17) mg/dL Creatinine (0.52-1.04) mg/dL Glucose (74-99) mg/dL POC Glucose (mg/dL) 282 H 154 H 162 H (75-99) mg/dL 08/31/17 08/31/17 08/31/17 Range/Units 04:48 07:16 07:17 BUN 43 H (7-17) mg/dL Creatinine 1.22 H (0.52-1.04) mg/dL Glucose 143 H (74-99) mg/dL POC Glucose (mg/dL) 139 H 141 H (75-99) mg/dL 08/31/17 Range/Units 11:36 BUN (7-17) mg/dL Creatinine (0.52-1.04) mg/dL Glucose (74-99) mg/dL POC Glucose (mg/dL) 204 H (75-99) mg/dL Assessment and Plan Plan: Impression 1- 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 Weakness/mobility Recommendations: 1- Diagnostic/Therapeutic Paracentesis - Para Fluid failed to show evidence of malignant cells. - Status post second paracentesis [id number] - Will rerun for path again. Recheck Ca125 - Review final path and if possible would like to initiate first chemotherapy as inpatient if the plan is for patient to go to outpatient rehab. 2- Reviewed likely diagnosis of abdominal malignancy with patient/daughter - over past weekend 3- Agree with [facility]/Onc evaluation as suggested by Dr Soto, Dr. Landaverde discussed case with Dr Liu Tillman ([facility]/ONC)> he advised Diagnostic/ Therapeutic Paracentesis as above > starting Nirmal-adjuvant Chemotherapy and he will evaluate as out-patient later 5- Recommended Carboplatinum+Taxol Chemotherapy Q 21 days X 6 ( To receive 3 cycles before surgery and 3 cycles after surgery), discussed side effects 6- Mediport placement ( Dr Cline).
[2017-08-31 17:17] LABS: Glucose,Whole Blood 126 mg/dL (75-99)
[2017-08-31 20:39] LABS: Glucose,Whole Blood 164 mg/dL (75-99)
[2017-08-31] MEDS: INSULIN DETEMIR 100 UNIT/ML 10 ML VIAL SQ SCH (21:44)
[2017-09-01 01:48] LABS: Glucose,Whole Blood 166 mg/dL (75-99)
[2017-09-01] MEDS: INSULIN ASPART 100 UNIT/ML 1 ML 10 ML VIAL SQ SCH ×5 (03:03→20:56)
[2017-09-01] MEDS: LEVOTHYROXINE 75 MCG TAB PO SCH (05:40)
[2017-09-01 06:52] LABS: Glucose,Whole Blood 87 mg/dL (75-99)
[2017-09-01] MEDS: METOPROLOL SUCCINATE (ER) 100 MG TAB.ER.24H PO SCH (08:36)
[2017-09-01] MEDS: amLODIPine 5 MG TAB PO SCH (08:36)
[2017-09-01] MEDS: ALLOPURINOL 100 MG TAB PO SCH (08:36)
[2017-09-01] MEDS: glipiZIDE 5 MG TAB PO SCH ×2 (08:36→20:55)
[2017-09-01] MEDS: ATORVASTATIN 10 MG TAB PO SCH (08:36)
[2017-09-01] MEDS: hydrALAZINE HCL 25 MG TAB PO SCH ×3 (08:36→22:41)
[2017-09-01] MEDS: GABAPENTIN 400 MG CAP PO SCH ×2 (08:37→20:55)
[2017-09-01] MEDS: PANTOPRAZOLE 40 MG TABLET PO SCH ×2 (08:37→18:05)
[2017-09-01] MEDS: FERROUS SULFATE 325 MG TAB PO SCH ×2 (08:37→18:05)
--- NOTE | 2017-09-01 08:41 | P.PN ---
Subjective Progress Note Date: 09/01/17 This is a 86-year-old female seen in consultation because of acute kidney injury. This is deemed to be from intravascular volume depletion from tight ascites as well as possible compartment syndrome. She underwent a paracentesis yesterday of 3 L. This morning she feels fairly well though it does complain of some dizziness on standing up. No nausea vomiting no abdominal pain no fever chills. No cough also complained of shortness of breath on and off on exertion. She has a tense abdomen. There is some question of malignancy the first paracentesis was not very helpful. A second paracentesis from yesterday and sent for pathology. As per the oncology note there is concern for malignancy. Objective - Vital Signs Vital signs: Vital Signs Temp 99.1 F 09/01/17 07:50 Pulse 76 09/01/17 07:50 Resp 16 09/01/17 07:50 BP 159/69 09/01/17 07:50 Pulse Ox 95 09/01/17 07:50 Intake & Output 08/31/17 09/01/17 09/01/17 18:59 06:59 18:59 Intake Total 300 Balance 300 Weight 102 kg 98 kg Intake: Oral 300 Other: Voiding Method Toilet Incontinent # Voids 2 2 On examination she is awake alert oriented comfortable. HEENT exam no JVP neck is supple no facial respiratory Lungs clear to auscultation fair air entry bilaterally Heart sounds are unremarkable no murmur rub gallop Abdomen is soft nontender but protuberant and somewhat tight in spite of a 3 L tap yesterday. Extremity examination reveals mild to minimal edema Neurologically awake alert oriented - Labs CBC & Chem 7: 08/31/17 07:17 08/31/17 07:17 Labs: Abnormal Lab Results - Last 24 Hours (Table) 08/31/17 08/31/17 08/31/17 Range/Units 07:17 11:36 17:15 RBC 3.13 L (3.80-5.40) m/uL Hgb 9.5 L (11.4-16.0) gm/dL Hct 29.6 L (34.0-46.0) % RDW 15.7 H (11.5-15.5) % Lymphocytes # 0.5 L (1.0-4.8) k/uL POC Glucose (mg/dL) 204 H 126 H (75-99) mg/dL 08/31/17 09/01/17 Range/Units 20:38 01:46 RBC (3.80-5.40) m/uL Hgb (11.4-16.0) gm/dL Hct (34.0-46.0) % RDW (11.5-15.5) % Lymphocytes # (1.0-4.8) k/uL POC Glucose (mg/dL) 164 H 166 H (75-99) mg/dL Assessment and Plan Assessment: Impression 1. Acute kidney injury from possible compartment syndrome as well as third spacing of fluid into the abdomen. Creatinine is up from 0.96 on 08/26/2017 to 1.22 as of yesterday last today are pending. 2. Moderate to severe ascites status post tap. Possible malignancy. 3. Anemia of possible malignancy. Recommendation. Discontinue the Lasix. Check labs.
[2017-09-01 11:52] LABS: Glucose,Whole Blood 205 mg/dL (75-99)
[2017-09-01] MEDS: HYDROcodone/APAP 5-325MG 1 EACH TAB PO PRN ×2 (15:27→22:42)
[2017-09-01 17:17] LABS: Glucose,Whole Blood 208 mg/dL (75-99)
[2017-09-01 19:58] LABS: Glucose,Whole Blood 239 mg/dL (75-99)
[2017-09-01] MEDS: INSULIN DETEMIR 100 UNIT/ML 10 ML VIAL SQ SCH (20:55)
[2017-09-01] MEDS: MONTELUKAST 10 MG TAB PO SCH (20:55)
[2017-09-02 02:09] LABS: Glucose,Whole Blood 108 mg/dL (75-99)
[2017-09-02] MEDS: INSULIN ASPART 100 UNIT/ML 1 ML 10 ML VIAL SQ SCH ×5 (02:40→20:28)
[2017-09-02] MEDS: LEVOTHYROXINE 75 MCG TAB PO SCH (06:11)
[2017-09-02 07:26] LABS: Glucose,Whole Blood 97 mg/dL (75-99)
[2017-09-02] MEDS: hydrALAZINE HCL 25 MG TAB PO SCH ×3 (07:26→20:28)
[2017-09-02] MEDS: amLODIPine 5 MG TAB PO SCH (07:26)
[2017-09-02] MEDS: GABAPENTIN 400 MG CAP PO SCH ×2 (07:26→20:28)
[2017-09-02] MEDS: ATORVASTATIN 10 MG TAB PO SCH (07:26)
[2017-09-02] MEDS: ALLOPURINOL 100 MG TAB PO SCH (07:27)
[2017-09-02] MEDS: glipiZIDE 5 MG TAB PO SCH ×2 (07:27→20:28)
[2017-09-02] MEDS: METOPROLOL SUCCINATE (ER) 100 MG TAB.ER.24H PO SCH (07:27)
[2017-09-02] MEDS: PANTOPRAZOLE 40 MG TABLET PO SCH ×2 (07:27→17:20)
[2017-09-02] MEDS: FERROUS SULFATE 325 MG TAB PO SCH ×2 (07:27→17:20)
[2017-09-02] MEDS: HYDROcodone/APAP 5-325MG 1 EACH TAB PO PRN ×2 (10:40→20:27)
[2017-09-02 10:43] LABS: Calcium 8.4 mg/dL (8.4-10.2); Potassium 5.1 mmol/L (3.5-5.1)
[2017-09-02 10:56] LABS: Basophils # (A) 0.1 k/uL (0-0.2); Basophils % (A) 1 %; Eosinophils # (A) 0.3 k/uL (0-0.7); Eosinophils % (A) 3 %; HCT 29.7 % (34.0-46.0); HGB 9.4 gm/dL (11.4-16.0); Lymphocytes # (A) 0.6 k/uL (1.0-4.8); Lymphocytes % (A) 7 %; MCH 29.8 pg (25.0-35.0); MCHC 31.7 g/dL (31.0-37.0); MCV 94.1 fL (80.0-100.0); Mean Platelet Volume 7.4; Monocytes # (A) 0.6 k/uL (0-1.0); Monocytes % (A) 7 %; Neutrophils # (A) 6.9 k/uL (1.3-7.7); Neutrophils % (A) 81 %; Platelet Count 195 k/uL (150-450); RBC 3.16 m/uL (3.80-5.40); RDW 15.7 % (11.5-15.5); WBC 8.5 k/uL (3.8-10.6)
--- NOTE | 2017-09-02 10:57 | P.PN ---
Subjective Progress Note Date: 09/01/17 Principal diagnosis: Ms. Perez is a 86-year-old female with a past medical history of hypertension, hyperlipidemia, hypothyroidism, transferred from [facility] after the patient was found to have an abdominal mass. The patient was also having coffee ground emesis and loose bowel movement for about 1 month associated with right lower quadrant abdominal pain. Patient has a CAT scan showing moderate gastritis and increased nodularity of the liver with mild splenomegaly and portal hypertension. There is complex cystic lesion in the right pelvis about 9.9 cm possible adnexal in origin. Patient had paracentesis done on Sunday and again yesterday 3 L of ascites fluid was drained. Patient had elevated CA-125 levels and her creatinine is also slightly higher than her normal. On 09/01/2017 patient states that she still has abdominal distention. She also complains of diffuse abdominal pain and tenderness. She also reports some difficulty in breathing while lying flat on the bed. She also complains of increased swelling of bilateral lower extremities. On review of systems: Constitutional: Fatigue Respiratory: Mild shortness of breath Cardiovascular: No chest pain or palpitations GI: Increased abdominal distention, also complains of bilateral lower extremity swelling Objective - Vital Signs Vital signs: Vital Signs Temp 98.5 F 09/01/17 15:00 Pulse 76 09/01/17 15:01 Resp 16 09/01/17 15:01 BP 142/63 09/01/17 15:00 Pulse Ox 94 L 09/01/17 15:00 Intake & Output 08/31/17 09/01/17 09/01/17 18:59 06:59 18:59 Intake Total 300 224 Output Total 1 Balance 300 223 Weight 102 kg 98 kg Intake: Oral 300 224 Output: Urine 1 Other: Voiding Method Toilet Toilet Incontinent Incontinent # Voids 2 2 2 - Exam GENERAL EXAM GEN. APPEARANCE: alert, in no apparent distress HEAD EXAM: atraumatic, normocephalic, normal inspection RESPIRATORY EXAM: Decreased breath sounds in the bilateral lower lung siu CARDIOVASCULAR EXAM: regular rate, normal rhythm, normal heart sounds. Absent : systolic murmur, diastolic murmur, rubs, gallop, clicks GI/ABDOMINAL EXAM: Distended, positive for mild tenderness in all quadrants. No guarding or rigidity. Organomegaly difficult to appreciate due to distention EXTREMITIES EXAM: Mild pitting edema of bilateral lower extremities up to the knee NEUROLOGICAL EXAM: alert, oriented X3, focal neurological deficits PSYCHIATRIC EXAM: normal affect, normal mood SKIN EXAM: warm, dry, intact, normal color. Absent: rash - Labs CBC & Chem 7: 08/31/17 07:17 08/31/17 07:17 Labs: Abnormal Lab Results - Last 24 Hours (Table) 08/31/17 08/31/17 09/01/17 Range/Units 17:15 20:38 01:46 POC Glucose (mg/dL) 126 H 164 H 166 H (75-99) mg/dL 09/01/17 Range/Units 11:51 POC Glucose (mg/dL) 205 H (75-99) mg/dL Assessment and Plan Assessment: Assessment New onset ascites Right adnexal mass measuring about 10 cm - suspected malignancy Cirrhosis of the liver Elevated CA-125 levels Left kidney cystic lesion Hypertension Type 2 diabetes mellitus Acute kidney injury - possible compartment syndrome due to ascites Shortness of breath - might be secondary to her abdominal distention Anemia - may be secondary to malignancy Plan: Patient had 3 L of acetic fluid drained yesterday and awaiting cytology report. Most likely we are dealing with malignancy of the adnexal mass. Oncology on board and following the patient. Nephrology on board and following the patient. Once the cytology report from the paracentesis fluid is back, decision regarding chemotherapy to be taken. Patient had a MediPort placed by Dr. York which is not yet ready to be used. Overall prognosis is poor. Further recommendations to follow depending on the progress of the patient. The treatment plan was discussed in detail with the patient and her family members at bedside today.
[2017-09-02 11:07] LABS: Glucose,Whole Blood 166 mg/dL (75-99)
--- NOTE | 2017-09-02 11:13 | P.PN ---
Subjective Progress Note Date: 09/02/17 Principal diagnosis: New onset Ascites Ms. Perez is a 86-year-old female with a past medical history of hypertension, hyperlipidemia, hypothyroidism, transferred from [facility] after the patient was found to have an abdominal mass. The patient was also having coffee ground emesis and loose bowel movement for about 1 month associated with right lower quadrant abdominal pain. Patient has a CAT scan showing moderate gastritis and increased nodularity of the liver with mild splenomegaly and portal hypertension. There is complex cystic lesion in the right pelvis about 9.9 cm possible adnexal in origin. Patient had paracentesis done on Sunday and again yesterday 3 L of ascites fluid was drained. Patient had elevated CA-125 levels and her creatinine is also slightly higher than her normal. On 09/01/2017 patient states that she still has abdominal distention. She also complains of diffuse abdominal pain and tenderness. She also reports some difficulty in breathing while lying flat on the bed. She also complains of increased swelling of bilateral lower extremities. On 09/02/17- No new complains from today. Over night no acute issues. On review of systems: Constitutional: Fatigue Respiratory: Mild shortness of breath Cardiovascular: No chest pain or palpitations GI: Increased abdominal distention, also complains of bilateral lower extremity swelling Objective - Vital Signs Vital signs: Vital Signs Temp 98.2 F 09/02/17 06:51 Pulse 78 09/02/17 07:34 Resp 20 09/02/17 07:34 BP 146/78 09/02/17 06:51 Pulse Ox 97 09/02/17 06:51 Intake & Output 09/01/17 09/02/17 09/02/17 18:59 06:59 18:59 Intake Total 224 240 Output Total 1 Balance 223 240 Weight 99.5 kg Intake: Oral 224 240 Output: Urine 1 Other: Voiding Method Toilet Toilet Toilet Incontinent Incontinent Incontinent # Voids 2 2 3 - Exam GENERAL EXAM GEN. APPEARANCE: alert, in no apparent distress HEAD EXAM: atraumatic, normocephalic, normal inspection RESPIRATORY EXAM: Decreased breath sounds in the bilateral lower lung siu CARDIOVASCULAR EXAM: regular rate, normal rhythm, normal heart sounds. Absent : systolic murmur, diastolic murmur, rubs, gallop, clicks GI/ABDOMINAL EXAM: Distended, positive for mild tenderness in all quadrants. No guarding or rigidity. Organomegaly difficult to appreciate due to distention EXTREMITIES EXAM: Mild pitting edema of bilateral lower extremities up to the knee NEUROLOGICAL EXAM: alert, oriented X3, focal neurological deficits PSYCHIATRIC EXAM: normal affect, normal mood SKIN EXAM: warm, dry, intact, normal color. - Labs CBC & Chem 7: 09/02/17 10:14 09/02/17 10:14 Labs: Abnormal Lab Results - Last 24 Hours (Table) 08/31/17 09/01/17 09/01/17 Range/Units 07:17 11:51 17:16 BUN (7-17) mg/dL Creatinine (0.52-1.04) mg/dL Glucose (74-99) mg/dL POC Glucose (mg/dL) 205 H 208 H (75-99) mg/dL CA 125 Antigen 420.5 H (0.0-30.1) U/mL 09/01/17 09/02/17 09/02/17 Range/Units 19:55 02:08 10:14 BUN 46 H (7-17) mg/dL Creatinine 1.30 H (0.52-1.04) mg/dL Glucose 158 H (74-99) mg/dL POC Glucose (mg/dL) 239 H 108 H (75-99) mg/dL CA 125 Antigen (0.0-30.1) U/mL Assessment and Plan Assessment: Assessment New onset ascites Right adnexal mass measuring about 10 cm - suspected malignancy Cirrhosis of the liver Elevated CA-125 levels Left kidney cystic lesion Hypertension Type 2 diabetes mellitus Acute kidney injury - possible compartment syndrome due to ascites Shortness of breath - might be secondary to her abdominal distention Anemia - may be secondary to malignancy Plan: Patient had 3 L of acetic fluid drained on 08/31/17 and awaiting cytology report. Most likely we are dealing with malignancy of the adnexal mass. Oncology on board and following the patient. Nephrology on board and following the patient.Patient had a MediPort placed by Dr. York which is not yet ready to be used. Overall prognosis is poor. Further recommendations to follow depending on the progress of the patient. The treatment plan was discussed in detail with the patient and her family members at bedside today.
--- NOTE | 2017-09-02 13:46 | P.PN ---
Subjective This is a 86-year-old female seen in consultation because of acute kidney injury. This is deemed to be from intravascular volume depletion from tight ascites as well as possible compartment syndrome. She underwent a paracentesis yesterday of 3 L. Ms. ePrez is a 86-year-old female with a past medical history of hypertension, hyperlipidemia, hypothyroidism, transferred from [facility] after the patient was found to have an abdominal mass. The patient was also having coffee ground emesis and loose bowel movement for about 1 month associated with right lower quadrant abdominal pain. Patient has a CAT scan showing moderate gastritis and increased nodularity of the liver with mild splenomegaly and portal hypertension. There is complex cystic lesion in the right pelvis about 9.9 cm possible adnexal in origin. Patient had elevated CA-125 levels and her creatinine is also slightly higher than her normal. This morning she feels fairly well though it does complain occasionally dizziness on standing up rapidly. No nausea vomiting no abdominal pain no fever chills. No cough also complained of shortness of breath on and off on exertion. She has a tense abdomen. She is able to walk around, has a good appetite Objective - Vital Signs Vital signs: Vital Signs Temp 98.2 F 09/02/17 06:51 Pulse 78 09/02/17 07:34 Resp 20 09/02/17 07:34 BP 146/78 09/02/17 06:51 Pulse Ox 97 09/02/17 06:51 Intake & Output 09/01/17 09/02/17 09/02/17 18:59 06:59 18:59 Intake Total 224 240 Output Total 1 Balance 223 240 Weight 99.5 kg Intake: Oral 224 240 Output: Urine 1 Other: Voiding Method Toilet Toilet Toilet Incontinent Incontinent Incontinent # Voids 2 2 3 On examination is awake alert oriented comfortable HEENT exam no JVP neck is supple no facial asymmetry Lungs are clear to auscultation good air entry bilaterally Heart sounds are remarkable for grade 1-2 systolic ejection murmur. She is aware of this since multiple years. Abdomen is tense with ascites nontender Extremity exam was mild edema Neurologically awake alert oriented. - Labs CBC & Chem 7: 09/02/17 10:14 09/02/17 10:14 Labs: Abnormal Lab Results - Last 24 Hours (Table) 08/31/17 09/01/17 09/01/17 Range/Units 07:17 17:16 19:55 RBC (3.80-5.40) m/uL Hgb (11.4-16.0) gm/dL Hct (34.0-46.0) % RDW (11.5-15.5) % Lymphocytes # (1.0-4.8) k/uL BUN (7-17) mg/dL Creatinine (0.52-1.04) mg/dL Glucose (74-99) mg/dL POC Glucose (mg/dL) 208 H 239 H (75-99) mg/dL CA 125 Antigen 420.5 H (0.0-30.1) U/mL 09/02/17 09/02/17 09/02/17 Range/Units 02:08 10:14 10:14 RBC 3.16 L (3.80-5.40) m/uL Hgb 9.4 L (11.4-16.0) gm/dL Hct 29.7 L (34.0-46.0) % RDW 15.7 H (11.5-15.5) % Lymphocytes # 0.6 L (1.0-4.8) k/uL BUN 46 H (7-17) mg/dL Creatinine 1.30 H (0.52-1.04) mg/dL Glucose 158 H (74-99) mg/dL POC Glucose (mg/dL) 108 H (75-99) mg/dL CA 125 Antigen (0.0-30.1) U/mL 09/02/17 Range/Units 11:06 RBC (3.80-5.40) m/uL Hgb (11.4-16.0) gm/dL Hct (34.0-46.0) % RDW (11.5-15.5) % Lymphocytes # (1.0-4.8) k/uL BUN (7-17) mg/dL Creatinine (0.52-1.04) mg/dL Glucose (74-99) mg/dL POC Glucose (mg/dL) 166 H (75-99) mg/dL CA 125 Antigen (0.0-30.1) U/mL Assessment and Plan Assessment: Impression 1. Acute kidney injury from possible compartment syndrome as well as third spacing of fluid into the abdomen. Creatinine is up from 0.96 on 08/26/2017 to 1.22 as of yesterday, and to 1.3 today, urine output unclear 2. Moderate to severe ascites status post tap. Possible malignancy. Results pendingMs. abdominal mass. CAT scan showing moderate gastritis and increased nodularity of the liver with mild splenomegaly and portal hypertension. There is complex cystic lesion in the right pelvis about 9.9 cm possible adnexal in origin. 3. Patient had paracentesis done on Sunday and again did before yesterday 3 L of ascites fluid was drained. Patient had elevated CA-125 levels 3. Anemia of possible malignancy. 4. Diabetes mellitus on oral medications. Recommendation. Check bladder scan. Hold the Lasix. We will try Aldactone 25 mg twice a day Check labs.
[2017-09-02 17:19] LABS: Glucose,Whole Blood 204 mg/dL (75-99)
[2017-09-02 20:01] LABS: Glucose,Whole Blood 202 mg/dL (75-99)
[2017-09-02] MEDS: MONTELUKAST 10 MG TAB PO SCH (20:28)
[2017-09-02] MEDS: SPIRONOLACTONE 25 MG TAB PO SCH (20:35)
[2017-09-02] MEDS: INSULIN DETEMIR 100 UNIT/ML 10 ML VIAL SQ SCH (21:00)
[2017-09-03 02:35] LABS: Glucose,Whole Blood 150 mg/dL (75-99)
[2017-09-03] MEDS: INSULIN ASPART 100 UNIT/ML 1 ML 10 ML VIAL SQ SCH ×5 (03:01→21:53)
[2017-09-03] MEDS: LEVOTHYROXINE 75 MCG TAB PO SCH (05:17)
[2017-09-03 08:12] LABS: Glucose,Whole Blood 206 mg/dL (75-99)
[2017-09-03] MEDS: SPIRONOLACTONE 25 MG TAB PO SCH ×2 (08:13→21:56)
[2017-09-03] MEDS: METOPROLOL SUCCINATE (ER) 100 MG TAB.ER.24H PO SCH (08:13)
[2017-09-03] MEDS: PANTOPRAZOLE 40 MG TABLET PO SCH ×2 (08:14→17:45)
[2017-09-03] MEDS: GABAPENTIN 400 MG CAP PO SCH ×2 (08:14→21:56)
[2017-09-03] MEDS: amLODIPine 5 MG TAB PO SCH (08:14)
[2017-09-03] MEDS: glipiZIDE 5 MG TAB PO SCH ×2 (08:14→21:56)
[2017-09-03] MEDS: ALLOPURINOL 100 MG TAB PO SCH (08:14)
[2017-09-03] MEDS: FERROUS SULFATE 325 MG TAB PO SCH ×2 (08:14→17:45)
[2017-09-03] MEDS: hydrALAZINE HCL 25 MG TAB PO SCH ×3 (08:14→21:56)
[2017-09-03] MEDS: ATORVASTATIN 10 MG TAB PO SCH (08:14)
[2017-09-03] MEDS ORDERED: FUROSEMIDE 10 MG/ML 4 ML VIAL IV STA (10:28)
--- NOTE | 2017-09-03 10:30 | P.PN ---
Subjective Patient is seen in follow-up for acute kidney injury. Her baseline creatinine is near 1 and peaked at 1.3 this admission. Patient presented with abdominal distention and underwent paracentesis on August 26 with 3.2 L removed and on August 31 with 3 liters removed. She is currently resting in bed. Admits to good urine output. No vomiting or diarrhea. Feels edematous and abdomen is distended again. Vital signs are stable. General: The patient appeared well nourished and normally developed. HEENT: Head exam is unremarkable. Neck is without jugular venous distension. LUNGS: Lungs are clear to auscultation and percussion. Breath sounds decreased. HEART: Rate and Rhythm are regular. First and second heart sounds normal. No murmurs, rubs or gallops. ABDOMEN: Abdominal exam reveals normal bowel sounds. Soft. Distention noted. EXTREMITITES: 1+ edema. Objective - Vital Signs Vital signs: Vital Signs Temp 98.2 F 09/03/17 07:24 Pulse 69 09/03/17 07:24 Resp 16 09/03/17 07:24 BP 147/65 09/03/17 07:24 Pulse Ox 94 L 09/03/17 07:24 Intake & Output 09/02/17 09/03/17 09/03/17 18:59 06:59 18:59 Intake Total 240 Output Total 1 Balance 239 Weight 99 kg Intake: Oral 240 Output: Urine 1 Other: Voiding Method Toilet Toilet Toilet Incontinent # Voids 3 2 - Labs CBC & Chem 7: 09/02/17 10:14 09/02/17 10:14 Labs: Abnormal Lab Results - Last 24 Hours (Table) 09/02/17 09/02/17 09/02/17 Range/Units 10:14 10:14 11:06 RBC 3.16 L (3.80-5.40) m/uL Hgb 9.4 L (11.4-16.0) gm/dL Hct 29.7 L (34.0-46.0) % RDW 15.7 H (11.5-15.5) % Lymphocytes # 0.6 L (1.0-4.8) k/uL BUN 46 H (7-17) mg/dL Creatinine 1.30 H (0.52-1.04) mg/dL Glucose 158 H (74-99) mg/dL POC Glucose (mg/dL) 166 H (75-99) mg/dL 09/02/17 09/02/17 09/03/17 Range/Units 17:17 19:59 02:31 RBC (3.80-5.40) m/uL Hgb (11.4-16.0) gm/dL Hct (34.0-46.0) % RDW (11.5-15.5) % Lymphocytes # (1.0-4.8) k/uL BUN (7-17) mg/dL Creatinine (0.52-1.04) mg/dL Glucose (74-99) mg/dL POC Glucose (mg/dL) 204 H 202 H 150 H (75-99) mg/dL 09/03/17 Range/Units 08:09 RBC (3.80-5.40) m/uL Hgb (11.4-16.0) gm/dL Hct (34.0-46.0) % RDW (11.5-15.5) % Lymphocytes # (1.0-4.8) k/uL BUN (7-17) mg/dL Creatinine (0.52-1.04) mg/dL Glucose (74-99) mg/dL POC Glucose (mg/dL) 206 H (75-99) mg/dL Assessment and Plan Plan: Assessment: 1. Nonoliguric acute kidney injury secondary to ATN secondary to third spacing of fluid. Creatinine 1.3 as of yesterday. Baseline creatinine near 1. 2. Ascites status post paracentesis on August 26 with 3.2 L drained and 08/31 with 3 L drained. 3. 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 Oncology following. 4. Insulin-dependent diabetes mellitus. 5. Benign hypertension. Controlled. Partially volume sensitive. 6. Lower extremity edema. 7. Proteinuria which is likely secondary to underlying diabetic kidney disease. 8. Anemia. Iron deficiency noted. Status post 3 doses of IV iron. Plan: Continue Aldactone 25 mg twice daily. Lasix 40 mg IV once today. Repeat electrolytes in the morning. Possible paracentesis today. 25 g of albumin prior to the procedure and an additional 25 g if more than 4 L removed. Discussed case with oncology. Will repeat cytology. May require biopsy of the mass.
[2017-09-03] MEDS ORDERED: FUROSEMIDE 40 MG TAB PO STA (11:14)
[2017-09-03 11:32] LABS: Calcium 8.4 mg/dL (8.4-10.2)
[2017-09-03 11:37] LABS: Glucose,Whole Blood 188 mg/dL (75-99)
--- NOTE | 2017-09-03 12:09 | P.PN ---
Subjective Progress Note Date: 09/03/17 Principal diagnosis: New onset Ascites Ms. Perez is a 86-year-old female with a past medical history of hypertension, hyperlipidemia, hypothyroidism, transferred from [facility] after the patient was found to have an abdominal mass. The patient was also having coffee ground emesis and loose bowel movement for about 1 month associated with right lower quadrant abdominal pain. Patient has a CAT scan showing moderate gastritis and increased nodularity of the liver with mild splenomegaly and portal hypertension. There is complex cystic lesion in the right pelvis about 9.9 cm possible adnexal in origin. Patient had paracentesis done on Sunday and again yesterday 3 L of ascites fluid was drained. Patient had elevated CA-125 levels and her creatinine is also slightly higher than her normal. On 09/03 patient states that she still has abdominal distention. She also complains of diffuse abdominal pain and tenderness. She also reports some difficulty in breathing while lying flat on the bed. She also complains of increased swelling of bilateral lower extremities. On review of systems: Constitutional: Fatigue Respiratory: Mild shortness of breath Cardiovascular: No chest pain or palpitations GI: Increased abdominal distention, also complains of bilateral lower extremity swelling Objective - Vital Signs Vital signs: Vital Signs Temp 98.2 F 09/03/17 07:24 Pulse 69 09/03/17 07:24 Resp 16 09/03/17 07:24 BP 147/65 09/03/17 07:24 Pulse Ox 94 L 09/03/17 07:24 Intake & Output 09/02/17 09/03/17 09/03/17 18:59 06:59 18:59 Intake Total 240 Output Total 1 Balance 239 Weight 99 kg Intake: Oral 240 Output: Urine 1 Other: Voiding Method Toilet Toilet Toilet Incontinent # Voids 3 2 - Exam GENERAL EXAM GEN. APPEARANCE: alert, in no apparent distress HEAD EXAM: atraumatic, normocephalic, normal inspection RESPIRATORY EXAM: Decreased breath sounds in the bilateral lower lung siu CARDIOVASCULAR EXAM: regular rate, normal rhythm, normal heart sounds. Absent : systolic murmur, diastolic murmur, rubs, gallop, clicks GI/ABDOMINAL EXAM: Distended, positive for mild tenderness in all quadrants. No guarding or rigidity. Organomegaly difficult to appreciate due to distention EXTREMITIES EXAM: Mild pitting edema of bilateral lower extremities up to the knee NEUROLOGICAL EXAM: alert, oriented X3, focal neurological deficits PSYCHIATRIC EXAM: normal affect, normal mood SKIN EXAM: warm, dry, intact, normal color. - Labs CBC & Chem 7: 09/02/17 10:14 09/03/17 11:01 Labs: Abnormal Lab Results - Last 24 Hours (Table) 09/02/17 09/02/17 09/03/17 Range/Units 17:17 19:59 02:31 Sodium (137-145) mmol/L Carbon Dioxide (22-30) mmol/L BUN (7-17) mg/dL Creatinine (0.52-1.04) mg/dL Glucose (74-99) mg/dL POC Glucose (mg/dL) 204 H 202 H 150 H (75-99) mg/dL 09/03/17 09/03/17 09/03/17 Range/Units 08:09 11:01 11:32 Sodium 135 L (137-145) mmol/L Carbon Dioxide 21 L (22-30) mmol/L BUN 47 H (7-17) mg/dL Creatinine 1.40 H (0.52-1.04) mg/dL Glucose 177 H (74-99) mg/dL POC Glucose (mg/dL) 206 H 188 H (75-99) mg/dL Assessment and Plan Assessment: Assessment New onset ascites Right adnexal mass measuring about 10 cm - suspected malignancy Cirrhosis of the liver Elevated CA-125 levels Left kidney cystic lesion Hypertension Type 2 diabetes mellitus Acute kidney injury - possible compartment syndrome due to ascites Shortness of breath - might be secondary to her abdominal distention Anemia - may be secondary to malignancy Plan: Patient had 3 L of acetic fluid drained on 08/31/17 and awaiting cytology report. Most likely we are dealing with malignancy of the adnexal mass. Discussed with oncology regarding the treatment plan for the patient. She might require IR guided biopsy of the adnexal mass if the cytology from the ascetic fluid does not show malignant cells even this time . She might benefit from a pigtail catheter for her ascites is as she is requiring multiple paracentesis. Nephrology on board and following the patient.Patient had a MediPort placed by Dr. York. Overall prognosis is poor. Further recommendations to follow depending on the progress of the patient. The treatment plan was discussed in detail with the patient and her family members at bedside today.
[2017-09-03 16:50] LABS: Glucose,Whole Blood 238 mg/dL (75-99)
--- NOTE | 2017-09-03 16:58 | P.PN ---
Subjective Progress Note Date: 09/03/17 Principal diagnosis: rapidly recurrent ascites, vomiting Pt seen in follow up, she has had 2 paracentesis since admission, 08/27/2017 3.2 L fluid removed, 08/31/2017 3 L removed. Her abdomen distends quickly, she thinks she could tolerate another paracentesis soon. Patient currently denies nausea, vomiting, she is tolerating oral intake and fair amounts, denies difficulty in breathing, difficulty with bowels or bladder. No pain to report Objective - Vital Signs Vital signs: Vital Signs Temp 98 F 09/03/17 14:36 Pulse 72 09/03/17 14:36 Resp 18 09/03/17 14:36 BP 156/70 09/03/17 14:36 Pulse Ox 95 09/03/17 14:36 Intake & Output 09/02/17 09/03/17 09/03/17 18:59 06:59 18:59 Intake Total 240 Output Total 1 Balance 239 Weight 99 kg Intake: Oral 240 Output: Urine 1 Other: Voiding Method Toilet Toilet Toilet Incontinent # Voids 3 2 1 - Constitutional General appearance: Present: no acute distress, obese - EENT Eyes: Present: anicteric sclerae - Respiratory Respiratory: bilateral: CTA - Cardiovascular Heart sounds: normal: S1, S2 Abnormal Heart Sounds: Present: systolic murmur - Peripheral edema leg Peripheral Edema: bilateral: Trace - Gastrointestinal Gastrointestinal Comment(s): faint bowel sounds noted General gastrointestinal: Present: distended - Integumentary Integumentary: Present: pale - Neurologic Neurologic: Present: CNII-XII intact - Musculoskeletal Musculoskeletal: Present: generalized weakness - Psychiatric Psychiatric: Present: A&O x's 3, appropriate affect, intact judgment & insight - Labs CBC & Chem 7: 09/02/17 10:14 09/03/17 11:01 Labs: Abnormal Lab Results - Last 24 Hours (Table) 09/02/17 09/02/17 09/03/17 Range/Units 17:17 19:59 02:31 Sodium (137-145) mmol/L Carbon Dioxide (22-30) mmol/L BUN (7-17) mg/dL Creatinine (0.52-1.04) mg/dL Glucose (74-99) mg/dL POC Glucose (mg/dL) 204 H 202 H 150 H (75-99) mg/dL 09/03/17 09/03/17 09/03/17 Range/Units 08:09 11:01 11:32 Sodium 135 L (137-145) mmol/L Carbon Dioxide 21 L (22-30) mmol/L BUN 47 H (7-17) mg/dL Creatinine 1.40 H (0.52-1.04) mg/dL Glucose 177 H (74-99) mg/dL POC Glucose (mg/dL) 206 H 188 H (75-99) mg/dL 09/03/17 Range/Units 16:48 Sodium (137-145) mmol/L Carbon Dioxide (22-30) mmol/L BUN (7-17) mg/dL Creatinine (0.52-1.04) mg/dL Glucose (74-99) mg/dL POC Glucose (mg/dL) 238 H (75-99) mg/dL Assessment and Plan (1) Ascites Narrative/Plan: Status post 2 paracentesis, just over 6 L of fluid removed, currently pending cytology, first cytology was nondiagnostic. Case was discussed with Attending Physician. May consider a pigtail drain for rapid, recurrent ascites, most likely malignant ascites. With a drain in place , if patient chooses treatment or not, the ability to drain ascites PRN would provide significant comfort. Will follow, and consider Current Visit: Yes Status: Acute Priority: High Code(s): R18.8 - OTHER ASCITES SNOMED Code(s): 234453050 (2) Pelvic mass in female Current Visit: Yes Status: Acute Priority: High Code(s): R19.00 - INTRA- ABD AND PELVIC SWELLING, MASS AND LUMP, UNSP SITE SNOMED Code(s): 54376414 (3) Normocytic normochromic anemia Narrative/Plan: No deficiencies on workup, quite possibly due to chronic kidney disease, conservative transfusions when necessary to keep hemoglobin around 7. Current Visit: Yes Status: Acute Priority: High Code(s): D64.9 - ANEMIA, UNSPECIFIED SNOMED Code(s): 18783085
[2017-09-03 20:15] LABS: Glucose,Whole Blood 263 mg/dL (75-99)
[2017-09-03] MEDS: HYDROcodone/APAP 5-325MG 1 EACH TAB PO PRN (21:53)
[2017-09-03] MEDS: MONTELUKAST 10 MG TAB PO SCH (21:55)
[2017-09-03] MEDS: INSULIN DETEMIR 100 UNIT/ML 10 ML VIAL SQ SCH (21:55)
[2017-09-04 01:50] LABS: Glucose,Whole Blood 122 mg/dL (75-99)
[2017-09-04] MEDS: INSULIN ASPART 100 UNIT/ML 1 ML 10 ML VIAL SQ SCH ×5 (02:46→20:34)
[2017-09-04] MEDS: LEVOTHYROXINE 75 MCG TAB PO SCH (05:44)
[2017-09-04 07:06] LABS: Glucose,Whole Blood 73 mg/dL (75-99)
[2017-09-04] MEDS: SPIRONOLACTONE 25 MG TAB PO SCH ×2 (07:44→20:35)
[2017-09-04] MEDS: glipiZIDE 5 MG TAB PO SCH ×2 (07:45→20:35)
[2017-09-04] MEDS: METOPROLOL SUCCINATE (ER) 100 MG TAB.ER.24H PO SCH (07:45)
[2017-09-04] MEDS: hydrALAZINE HCL 25 MG TAB PO SCH ×3 (07:45→20:35)
[2017-09-04] MEDS: FERROUS SULFATE 325 MG TAB PO SCH ×2 (07:46→17:48)
[2017-09-04] MEDS: PANTOPRAZOLE 40 MG TABLET PO SCH ×2 (07:46→17:49)
[2017-09-04] MEDS: GABAPENTIN 400 MG CAP PO SCH ×2 (07:46→20:35)
[2017-09-04] MEDS: amLODIPine 5 MG TAB PO SCH (07:46)
[2017-09-04] MEDS: ALLOPURINOL 100 MG TAB PO SCH (07:46)
[2017-09-04] MEDS: ATORVASTATIN 10 MG TAB PO SCH (07:46)
[2017-09-04 08:27] LABS: Calcium 8.4 mg/dL (8.4-10.2); Potassium 4.7 mmol/L (3.5-5.1)
[2017-09-04 09:50] LABS: Glucose,Whole Blood 199 mg/dL (75-99)
--- NOTE | 2017-09-04 11:07 | P.PN ---
Subjective Patient is seen in follow-up for acute kidney injury. Her baseline creatinine is near 1 and is stable at 1.43 today. Patient presented with abdominal distention and underwent paracentesis on August 26 with 3.2 L removed and on August 31 with 3 liters removed. She is currently resting in bed. Admits to good urine output. No vomiting or diarrhea. Feels edematous and abdomen is distended again. Vital signs are stable. General: The patient appeared well nourished and normally developed. HEENT: Head exam is unremarkable. Neck is without jugular venous distension. LUNGS: Lungs are clear to auscultation and percussion. Breath sounds decreased. HEART: Rate and Rhythm are regular. First and second heart sounds normal. No murmurs, rubs or gallops. ABDOMEN: Abdominal exam reveals normal bowel sounds. Soft. Distention noted. EXTREMITITES: 1+ edema. Objective - Vital Signs Vital signs: Vital Signs Temp 98.0 F 09/04/17 06:00 Pulse 72 09/04/17 06:00 Resp 16 09/04/17 06:00 BP 132/62 09/04/17 06:00 Pulse Ox 96 09/04/17 06:00 Intake & Output 09/03/17 09/04/17 09/04/17 18:59 06:59 18:59 Weight 101.5 kg Other: Voiding Method Toilet Toilet Toilet # Voids 1 2 - Labs CBC & Chem 7: 09/02/17 10:14 09/04/17 07:45 Labs: Abnormal Lab Results - Last 24 Hours (Table) 09/03/17 09/03/17 09/03/17 Range/Units 11:01 11:32 16:48 Sodium 135 L (137-145) mmol/L Carbon Dioxide 21 L (22-30) mmol/L BUN 47 H (7-17) mg/dL Creatinine 1.40 H (0.52-1.04) mg/dL Glucose 177 H (74-99) mg/dL POC Glucose (mg/dL) 188 H 238 H (75-99) mg/dL 09/03/17 09/04/17 09/04/17 Range/Units 20:08 01:48 07:04 Sodium (137-145) mmol/L Carbon Dioxide (22-30) mmol/L BUN (7-17) mg/dL Creatinine (0.52-1.04) mg/dL Glucose (74-99) mg/dL POC Glucose (mg/dL) 263 H 122 H 73 L (75-99) mg/dL 09/04/17 09/04/17 Range/Units 07:45 09:46 Sodium (137-145) mmol/L Carbon Dioxide (22-30) mmol/L BUN 50 H (7-17) mg/dL Creatinine 1.43 H (0.52-1.04) mg/dL Glucose 62 L (74-99) mg/dL POC Glucose (mg/dL) 199 H (75-99) mg/dL Assessment and Plan Plan: Assessment: 1. Nonoliguric acute kidney injury secondary to ATN secondary to third spacing of fluid. Creatinine 1.4 today. Baseline creatinine near 1. 2. Ascites status post paracentesis on August 26 with 3.2 L drained and 08/31 with 3 L drained. 3. 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 Oncology following. 4. Insulin-dependent diabetes mellitus. 5. Benign hypertension. Controlled. Partially volume sensitive. 6. Lower extremity edema. 7. Proteinuria which is likely secondary to underlying diabetic kidney disease. 8. Anemia. Iron deficiency noted. Status post 3 doses of IV iron. Plan: Continue Aldactone 25 mg twice daily. Lasix 40 mg PO daily. Repeat electrolytes in the morning. Possible paracentesis tomorrow. 25 g of albumin prior to the procedure and an additional 25 g if more than 4 L removed. Discussed case with oncology. Will repeat cytology. May require biopsy of the mass.
[2017-09-04] MEDS: FUROSEMIDE 40 MG TAB PO SCH (11:27)
[2017-09-04 11:50] LABS: Glucose,Whole Blood 238 mg/dL (75-99)
[2017-09-04 16:09] LABS: Calcium 8.4 mg/dL (8.4-10.2); Potassium 5.3 mmol/L (3.5-5.1)
--- NOTE | 2017-09-04 16:10 | PN ---
PROGRESS NOTE DATE OF SERVICE: 09/04/2017 This 86-year-old woman was admitted with new onset ascites which was recurrent in nature. The initial cytology was negative for any malignancy at this time. The patient also had a pelvic mass and elevated CA-125 level, suspicious for ovarian malignancy. Mediport placement for neoadjuvant therapy was also recommended. No chest pain or palpitations. more than 6 L fluid has been removed. Past medical history reviewed. REVIEW OF SYSTEMS: CARDIOVASCULAR SYSTEM: No angina, palpitations. RESPIRATORY SYSTEM: As mentioned earlier. GI: As mentioned earlier. : No dysuria or retention. NERVOUS SYSTEM: Mild diffuse weakness. CURRENT MEDICATIONS: Current medications are reviewed and include: 1. [place] 5 mg q.6. 2. Zyloprim 100 mg. 3. Xanax 0.25 at bedtime. 4. Norvasc 5 mg daily. 5. Lipitor 10 mg daily. 6. Iron sulfate 325 mg b.i.d. 7. Lasix 40 mg p.o. daily. 8. Neurontin 400 mg p.o. b.i.d. 9. Glucotrol 5 mg p.o. b.i.d. 10.Apresoline 10 mg IV q.4. 11.NovoLog. 12.Levemir 20 units subcutaneously at bedtime. 13.Synthroid. 14.Singulair. 15.Nitrostat. 16.Zofran. 17.Protonix. 18.Aldactone. PHYSICAL EXAMINATION: Patient is alert, oriented x3. Pulse 72, blood pressure 130/62, respiration 16, temperature 98 degrees, pulse ox 96% on 2 L. HEENT: Conjunctivae normal. Oral mucosa moist. NECK: No jugular venous distention. No carotid bruit. No lymph node enlargement. CARDIOVASCULAR SYSTEM: S1, S2 muffled. RESPIRATORY SYSTEM: Breath sounds diminished at the bases. Scattered rhonchi. No crackles. ABDOMEN: Soft. Mild diffuse distention present. Tense. Nontender. Bowel sounds diminished. No mass palpable. LEGS: No edema. No swelling. NERVOUS SYSTEM: Higher functions as mentioned earlier. Moves all 4 limbs. No focal motor or sensory deficit. LYMPHATICS: No lymph node palpable in neck, axillae or groin. SKIN: No ulcer, rash, bleeding. LABS: Sodium 132, creatinine 1.43. Hemoglobin 9.4. ASSESSMENT: 1. New onset ascites, recurrent, possibly malignant. 2. Right adnexal mass, 10 cm; possible ovarian malignancy. 3. Elevated CA 125 levels. 4. Cirrhosis of the liver. 5. Left kidney cystic lesion. 6. Hypertension. 7. Diabetes mellitus, type 2. 8. Acute kidney injury with acute renal failure. 9. Shortness of breath, multifactorial. 10.Anemia secondary to chronic disease. RECOMMENDATIONS AND DISCUSSION: I recommend to continue current medication, continue symptomatic treatment. Otherwise at this time I recommend monitoring the CMP also. PT/OT evaluation. Discussed with Hematology Oncology. Possible peritoneal biopsy or procedure with empiric neoadjuvant chemotherapy. MMODL / IJN: [id number] / MTDD
[2017-09-04 17:04] LABS: T4, Free (Free Thyroxine) 1.98 ng/dL (0.78-2.19)
[2017-09-04 17:32] LABS: Glucose,Whole Blood 244 mg/dL (75-99)
--- NOTE | 2017-09-04 18:07 | P.PN ---
Subjective Progress Note Date: 09/04/17 Principal diagnosis: rapidly recurrent ascites, vomiting Patient seen today in follow-up, still pending cytology on recent ascitic fluid. she is denying fever, nausea, she is tolerating oral intake,she is short of breath with exertion, comfortable at rest, her abdomen is distended, she denies difficulty urinating or having problems with bowel movements, she is walking to the bathroom Objective - Vital Signs Vital signs: Vital Signs Temp 98.0 F 09/04/17 15:05 Pulse 68 09/04/17 15:05 Resp 16 09/04/17 15:05 BP 145/68 09/04/17 15:05 Pulse Ox 95 09/04/17 15:05 Intake & Output 09/03/17 09/04/17 09/04/17 18:59 06:59 18:59 Weight 101.5 kg Other: Voiding Method Toilet Toilet Toilet # Voids 1 2 1 - Exam no acute distress, alert and oriented 4 - Constitutional General appearance: Present: cooperative, no acute distress, obese - Gastrointestinal General gastrointestinal: Present: distended - Labs CBC & Chem 7: 09/02/17 10:14 09/04/17 14:58 Labs: Abnormal Lab Results - Last 24 Hours (Table) 09/03/17 09/04/17 09/04/17 Range/Units 20:08 01:48 07:04 Sodium (137-145) mmol/L Potassium (3.5-5.1) mmol/L Carbon Dioxide (22-30) mmol/L BUN (7-17) mg/dL Creatinine (0.52-1.04) mg/dL Glucose (74-99) mg/dL POC Glucose (mg/dL) 263 H 122 H 73 L (75-99) mg/dL TSH (0.465-4.680) mIU/L 09/04/17 09/04/17 09/04/17 Range/Units 07:45 09:46 11:49 Sodium (137-145) mmol/L Potassium (3.5-5.1) mmol/L Carbon Dioxide (22-30) mmol/L BUN 50 H (7-17) mg/dL Creatinine 1.43 H (0.52-1.04) mg/dL Glucose 62 L (74-99) mg/dL POC Glucose (mg/dL) 199 H 238 H (75-99) mg/dL TSH (0.465-4.680) mIU/L 09/04/17 09/04/17 Range/Units 14:58 17:17 Sodium 135 L (137-145) mmol/L Potassium 5.3 H (3.5-5.1) mmol/L Carbon Dioxide 17 L (22-30) mmol/L BUN 53 H (7-17) mg/dL Creatinine 1.50 H (0.52-1.04) mg/dL Glucose 236 H (74-99) mg/dL POC Glucose (mg/dL) 244 H (75-99) mg/dL TSH 7.460 H (0.465-4.680) mIU/L Assessment and Plan (1) Ascites Current Visit: Yes Status: Acute Priority: High Code(s): R18.8 - OTHER ASCITES SNOMED Code(s): 956878540 (2) Pelvic mass in female Current Visit: Yes Status: Acute Priority: High Code(s): R19.00 - INTRA- ABD AND PELVIC SWELLING, MASS AND LUMP, UNSP SITE SNOMED Code(s): 27197069 (3) Normocytic normochromic anemia Narrative/Plan: No transfusion needed, Hgb stable Current Visit: Yes Status: Acute Priority: High Code(s): D64.9 - ANEMIA, UNSPECIFIED SNOMED Code(s): 00809079 Plan: Pending a sciatic cytology. Did contact pathology, results anticipated in the a.m. Discussed with internal medicine, if negative cytology Will ask for Interventional Radiology and see if biopsy of pelvic mass is possible, if not, patient needs to be transferred to a higher level of care.
[2017-09-04 20:01] LABS: Glucose,Whole Blood 291 mg/dL (75-99)
[2017-09-04] MEDS: HYDROcodone/APAP 5-325MG 1 EACH TAB PO PRN (20:34)
[2017-09-04] MEDS: INSULIN DETEMIR 100 UNIT/ML 10 ML VIAL SQ SCH (20:34)
[2017-09-04] MEDS: MONTELUKAST 10 MG TAB PO SCH (20:35)
[2017-09-05 02:03] LABS: Glucose,Whole Blood 125 mg/dL (75-99)
[2017-09-05] MEDS: INSULIN ASPART 100 UNIT/ML 1 ML 10 ML VIAL SQ SCH ×5 (02:50→21:13)
[2017-09-05] MEDS: LEVOTHYROXINE 75 MCG TAB PO SCH (06:26)
[2017-09-05 06:46] LABS: Glucose,Whole Blood 73 mg/dL (75-99)
[2017-09-05 08:03] LABS: Albumin 2.7 g/dL (3.5-5.0); Calcium 8.2 mg/dL (8.4-10.2); Potassium 4.5 mmol/L (3.5-5.1); Total Bilirubin 0.5 mg/dL (0.2-1.3); Total Protein 4.9 g/dL (6.3-8.2)
[2017-09-05] MEDS: glipiZIDE 5 MG TAB PO SCH ×2 (08:13→21:15)
[2017-09-05] MEDS: ALLOPURINOL 100 MG TAB PO SCH (08:13)
[2017-09-05] MEDS: METOPROLOL SUCCINATE (ER) 100 MG TAB.ER.24H PO SCH (08:13)
[2017-09-05] MEDS: SPIRONOLACTONE 25 MG TAB PO SCH ×2 (08:13→21:16)
[2017-09-05] MEDS: GABAPENTIN 400 MG CAP PO SCH ×2 (08:13→21:15)
[2017-09-05] MEDS: FUROSEMIDE 40 MG TAB PO SCH (08:13)
[2017-09-05] MEDS: FERROUS SULFATE 325 MG TAB PO SCH ×2 (08:13→18:04)
[2017-09-05] MEDS: PANTOPRAZOLE 40 MG TABLET PO SCH ×2 (08:13→18:04)
[2017-09-05] MEDS: amLODIPine 5 MG TAB PO SCH (08:13)
[2017-09-05] MEDS: hydrALAZINE HCL 25 MG TAB PO SCH ×3 (08:13→21:16)
[2017-09-05] MEDS: FLUTICASONE 50MCG/SPRAY NASAL 16GM EA NOSTRIL SCH (08:19)
[2017-09-05] MEDS: ATORVASTATIN 10 MG TAB PO SCH (08:20)
[2017-09-05] MEDS ORDERED: LEVOTHYROXINE 25 MCG TAB PO SCH (09:00)
[2017-09-05] MEDS ORDERED: LEVOTHYROXINE SODIUM 200 MCG PO SCH (09:00)
[2017-09-05 11:24] LABS: Glucose,Whole Blood 235 mg/dL (75-99)
[2017-09-05 11:46] VITALS: BMI 37.5
--- NOTE | 2017-09-05 11:49 | P.PN ---
Subjective Patient is seen in follow-up for acute kidney injury. Her baseline creatinine is near 1 and is stable at 1.4 today. Patient presented with abdominal distention and underwent paracentesis on August 26 with 3.2 L removed and on August 31 with 3 liters removed. She is currently resting in bed. Admits to good urine output. No vomiting or diarrhea. Feels edematous and abdomen is distended again. Vital signs are stable. General: The patient appeared well nourished and normally developed. HEENT: Head exam is unremarkable. Neck is without jugular venous distension. LUNGS: Lungs are clear to auscultation and percussion. Breath sounds decreased. HEART: Rate and Rhythm are regular. First and second heart sounds normal. No murmurs, rubs or gallops. ABDOMEN: Abdominal exam reveals normal bowel sounds. Soft. Distention noted. EXTREMITITES: 1+ edema. Objective - Vital Signs Vital signs: Vital Signs Temp 97.5 F L 09/05/17 07:00 Pulse 71 09/05/17 08:16 Resp 15 09/05/17 07:00 BP 146/67 09/05/17 08:16 Pulse Ox 97 09/05/17 07:00 Intake & Output 09/04/17 09/05/17 09/05/17 18:59 06:59 18:59 Intake Total 250 Balance 250 Weight 102.5 kg 102.5 kg Intake: Oral 250 Other: Voiding Method Toilet Toilet # Voids 1 2 - Labs CBC & Chem 7: 09/02/17 10:14 09/05/17 07:34 Labs: Abnormal Lab Results - Last 24 Hours (Table) 09/04/17 09/04/17 09/04/17 Range/Units 11:49 14:58 17:17 Sodium 135 L (137-145) mmol/L Potassium 5.3 H (3.5-5.1) mmol/L Carbon Dioxide 17 L (22-30) mmol/L BUN 53 H (7-17) mg/dL Creatinine 1.50 H (0.52-1.04) mg/dL Glucose 236 H (74-99) mg/dL POC Glucose (mg/dL) 238 H 244 H (75-99) mg/dL Calcium (8.4-10.2) mg/dL AST (14-36) U/L ALT (9-52) U/L Alkaline Phosphatase (38-126) U/L Total Protein (6.3-8.2) g/dL Albumin (3.5-5.0) g/dL TSH 7.460 H (0.465-4.680) mIU/L 09/04/17 09/05/17 09/05/17 Range/Units 20:00 02:01 06:35 Sodium (137-145) mmol/L Potassium (3.5-5.1) mmol/L Carbon Dioxide (22-30) mmol/L BUN (7-17) mg/dL Creatinine (0.52-1.04) mg/dL Glucose (74-99) mg/dL POC Glucose (mg/dL) 291 H 125 H 73 L (75-99) mg/dL Calcium (8.4-10.2) mg/dL AST (14-36) U/L ALT (9-52) U/L Alkaline Phosphatase (38-126) U/L Total Protein (6.3-8.2) g/dL Albumin (3.5-5.0) g/dL TSH (0.465-4.680) mIU/L 09/05/17 09/05/17 Range/Units 07:34 11:18 Sodium (137-145) mmol/L Potassium (3.5-5.1) mmol/L Carbon Dioxide (22-30) mmol/L BUN 53 H (7-17) mg/dL Creatinine 1.40 H (0.52-1.04) mg/dL Glucose (74-99) mg/dL POC Glucose (mg/dL) 235 H (75-99) mg/dL Calcium 8.2 L (8.4-10.2) mg/dL AST 63 H (14-36) U/L ALT 88 H (9-52) U/L Alkaline Phosphatase 270 H (38-126) U/L Total Protein 4.9 L (6.3-8.2) g/dL Albumin 2.7 L (3.5-5.0) g/dL TSH (0.465-4.680) mIU/L Assessment and Plan Plan: Assessment: 1. Nonoliguric acute kidney injury secondary to ATN secondary to third spacing of fluid. Creatinine 1.4 today. Baseline creatinine near 1. 2. Ascites status post paracentesis on August 26 with 3.2 L drained and 08/31 with 3 L drained. 3. 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 Oncology following. 4. Insulin-dependent diabetes mellitus. 5. Benign hypertension. Controlled. Partially volume sensitive. 6. Lower extremity edema. 7. Proteinuria which is likely secondary to underlying diabetic kidney disease. 8. Anemia. Iron deficiency noted. Status post 3 doses of IV iron. Plan: Continue Aldactone 25 mg twice daily. Lasix 40 mg PO daily. Repeat electrolytes in the morning. Will likely require paracentesis soon - 25 g of albumin prior to the procedure and an additional 25 g if more than 4 L removed. Fluid cytology pending. May require biopsy of the mass.
[2017-09-05] MEDS: HYDROcodone/APAP 5-325MG 1 EACH TAB PO PRN ×2 (15:07→21:19)
[2017-09-05 17:25] LABS: Glucose,Whole Blood 172 mg/dL (75-99)
--- NOTE | 2017-09-05 17:49 | PN ---
PROGRESS NOTE DATE OF SERVICE: 09/05/2017 This 86-year-old woman who was admitted with new-onset ascites and recurrent also had a right adnexal mass. The cytology is negative so far. Repeat cytology is pending at this time. No chest pain. No palpitations. No fever. Patient also has gait dysfunction. On examination, alert and oriented x3. Pulse 67, blood pressure 121/61, respiration 18, temperature 97.8, pulse ox 98% on room air. HEENT: Conjunctivae normal. NECK: No jugular venous distention. CARDIOVASCULAR SYSTEM: S1, S2 muffled. RESPIRATORY SYSTEM: Breath sounds diminished at the bases. No rhonchi. No crackles. ABDOMEN: Soft. Ascites present. LEGS: Minimal edema. NERVOUS SYSTEM: No focal deficit. LABS: Creatinine is 1.4. ASSESSMENT: 1. New-onset ascites, recurrent, possibly malignant, status post abdominal paracentesis. 2. Right adnexal mass, 10 cm, possibly ovarian malignancy. 3. Elevated CA-125 levels. 4. Cirrhosis of the liver possibly. 5. Left kidney cystic lesion. 6. Hypertension. 7. Diabetes mellitus, type 2. 8. Acute kidney injury with acute renal failure. 9. Shortness of breath, multifactorial. 10.Anemia secondary to chronic disease. RECOMMENDATIONS AND DISCUSSION: I recommend to continue current medication, continue with the monitoring, symptomatic treatment. Otherwise, at this time I would recommend await cytology reports, and if the cytology report is not positive, will consider referral to a tertiary care center. We will discuss with the family as well as the hematology/oncology team with Dr. Nascimento. Further recommendations to follow. MMODL / IJN: [id number] /
[2017-09-05 20:31] LABS: Glucose,Whole Blood 251 mg/dL (75-99)
[2017-09-05] MEDS: INSULIN DETEMIR 100 UNIT/ML 10 ML VIAL SQ SCH (21:15)
[2017-09-05] MEDS: MONTELUKAST 10 MG TAB PO SCH (21:16)
[2017-09-06 01:47] LABS: Glucose,Whole Blood 170 mg/dL (75-99)
[2017-09-06] MEDS: INSULIN ASPART 100 UNIT/ML 1 ML 10 ML VIAL SQ SCH ×5 (01:50→20:55)
[2017-09-06] MEDS: LEVOTHYROXINE 75 MCG TAB PO SCH (06:04)
[2017-09-06 07:26] LABS: Glucose,Whole Blood 91 mg/dL (75-99)
[2017-09-06 07:31] LABS: Basophils % (A) 1 %; Eosinophils # (A) 0.2 k/uL (0-0.7); Eosinophils % (A) 5 %; HCT 26.5 % (34.0-46.0); HGB 8.7 gm/dL (11.4-16.0); Hypochromasia Slight; Lymphocytes # (A) 0.6 k/uL (1.0-4.8); Lymphocytes % (A) 11 %; MCH 30.2 pg (25.0-35.0); MCHC 32.8 g/dL (31.0-37.0); MCV 92.2 fL (80.0-100.0); Mean Platelet Volume 7.6; Monocytes # (A) 0.5 k/uL (0-1.0); Monocytes % (A) 9 %; Neutrophils % (A) 73 %; Platelet Count 195 k/uL (150-450); RBC 2.87 m/uL (3.80-5.40); RDW 15.5 % (11.5-15.5); WBC 5.5 k/uL (3.8-10.6)
[2017-09-06 07:41] LABS: Albumin 2.9 g/dL (3.5-5.0); Calcium 8.3 mg/dL (8.4-10.2); Magnesium 2.1 mg/dL (1.6-2.3); Potassium 4.6 mmol/L (3.5-5.1); Total Bilirubin 0.4 mg/dL (0.2-1.3); Total Protein 5.1 g/dL (6.3-8.2)
[2017-09-06] MEDS: FUROSEMIDE 40 MG TAB PO SCH (08:14)
[2017-09-06] MEDS: amLODIPine 5 MG TAB PO SCH (08:14)
[2017-09-06] MEDS: SPIRONOLACTONE 25 MG TAB PO SCH ×2 (08:14→20:57)
[2017-09-06] MEDS: ATORVASTATIN 10 MG TAB PO SCH (08:14)
[2017-09-06] MEDS: METOPROLOL SUCCINATE (ER) 100 MG TAB.ER.24H PO SCH (08:14)
[2017-09-06] MEDS: FERROUS SULFATE 325 MG TAB PO SCH ×2 (08:14→17:18)
[2017-09-06] MEDS: GABAPENTIN 400 MG CAP PO SCH ×2 (08:14→20:58)
[2017-09-06] MEDS: hydrALAZINE HCL 25 MG TAB PO SCH ×3 (08:14→20:56)
[2017-09-06] MEDS: PANTOPRAZOLE 40 MG TABLET PO SCH ×2 (08:14→17:18)
[2017-09-06] MEDS: glipiZIDE 5 MG TAB PO SCH ×2 (08:14→20:57)
[2017-09-06] MEDS: ALLOPURINOL 100 MG TAB PO SCH (08:14)
[2017-09-06] MEDS: FLUTICASONE 50MCG/SPRAY NASAL 16GM EA NOSTRIL SCH (08:14)
--- NOTE | 2017-09-06 11:27 | P.PN ---
Subjective Patient is seen in follow-up for acute kidney injury. Her baseline creatinine is near 1 and is stable at 1.4 today. Patient presented with abdominal distention and underwent paracentesis on August 26 with 3.2 L removed and on August 31 with 3 liters removed. She is currently resting in bed. Admits to good urine output. No vomiting or diarrhea. Feels edematous and abdomen is distended again. Vital signs are stable. General: The patient appeared well nourished and normally developed. HEENT: Head exam is unremarkable. Neck is without jugular venous distension. LUNGS: Lungs are clear to auscultation and percussion. Breath sounds decreased. HEART: Rate and Rhythm are regular. First and second heart sounds normal. No murmurs, rubs or gallops. ABDOMEN: Abdominal exam reveals normal bowel sounds. Soft. Distention noted. EXTREMITITES: 1+ edema. Objective - Vital Signs Vital signs: Vital Signs Temp 98.3 F 09/06/17 05:00 Pulse 73 09/06/17 05:00 Resp 17 09/06/17 05:00 BP 157/59 09/06/17 05:00 Pulse Ox 98 09/06/17 05:00 Intake & Output 09/05/17 09/06/17 09/06/17 18:59 06:59 18:59 Intake Total 900 Balance 900 Weight 102.5 kg 102 kg Intake: Oral 900 Other: Voiding Method Toilet Toilet Toilet # Voids 2 2 - Labs CBC & Chem 7: 09/06/17 06:45 09/06/17 06:45 Labs: Abnormal Lab Results - Last 24 Hours (Table) 09/05/17 09/05/17 09/06/17 Range/Units 17:23 20:13 01:42 RBC (3.80-5.40) m/uL Hgb (11.4-16.0) gm/dL Hct (34.0-46.0) % Lymphocytes # (1.0-4.8) k/uL BUN (7-17) mg/dL Creatinine (0.52-1.04) mg/dL POC Glucose (mg/dL) 172 H 251 H 170 H (75-99) mg/dL Calcium (8.4-10.2) mg/dL AST (14-36) U/L ALT (9-52) U/L Alkaline Phosphatase (38-126) U/L Total Protein (6.3-8.2) g/dL Albumin (3.5-5.0) g/dL 09/06/17 09/06/17 Range/Units 06:45 06:45 RBC 2.87 L (3.80-5.40) m/uL Hgb 8.7 L (11.4-16.0) gm/dL Hct 26.5 L (34.0-46.0) % Lymphocytes # 0.6 L (1.0-4.8) k/uL BUN 53 H (7-17) mg/dL Creatinine 1.40 H (0.52-1.04) mg/dL POC Glucose (mg/dL) (75-99) mg/dL Calcium 8.3 L (8.4-10.2) mg/dL AST 47 H (14-36) U/L ALT 78 H (9-52) U/L Alkaline Phosphatase 269 H (38-126) U/L Total Protein 5.1 L (6.3-8.2) g/dL Albumin 2.9 L (3.5-5.0) g/dL Assessment and Plan Plan: Assessment: 1. Nonoliguric acute kidney injury secondary to ATN secondary to third spacing of fluid. Creatinine 1.4 today. Baseline creatinine near 1. 2. Ascites status post paracentesis on August 26 with 3.2 L drained and 08/31 with 3 L drained. 3. 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 Oncology following. 4. Insulin-dependent diabetes mellitus. 5. Benign hypertension. Controlled. Partially volume sensitive. 6. Lower extremity edema. 7. Proteinuria which is likely secondary to underlying diabetic kidney disease. 8. Anemia. Iron deficiency noted. Status post 3 doses of IV iron. Plan: Continue Aldactone 25 mg twice daily. Lasix 40 mg PO daily. Repeat electrolytes in the morning. Paracentesis scheduled for tomorrow along with biopsy of the mass - 25 g of albumin prior to the procedure and an additional 25 g if more than 4 L removed.
[2017-09-06 11:28] LABS: Prothrombin Time 9.7 sec (9.0-12.0)
[2017-09-06 11:52] LABS: Glucose,Whole Blood 178 mg/dL (75-99)
[2017-09-06] MEDS: HYDROcodone/APAP 5-325MG 1 EACH TAB PO PRN ×2 (12:54→20:56)
--- NOTE | 2017-09-06 13:57 | US ---
EXAMINATION TYPE: US abdomen limited DATE OF EXAM: 09/06/2017 COMPARISON: 08/31/2017 CLINICAL HISTORY: assess fluid. Moderate amount of fluid. There is a cirrhotic morphology of the liver and moderate amount of ascites within all 4 quadrants. IMPRESSION: Moderate volume recurrent abdominopelvic ascites
[2017-09-06] MEDS: ALBUMIN HUMAN 25% 50 ML in EMPTY BAG 1 BAG IVPB SCH ×2 (14:40→15:08)
[2017-09-06 17:06] LABS: Glucose,Whole Blood 111 mg/dL (75-99)
--- NOTE | 2017-09-06 18:05 | PN ---
PROGRESS NOTE DATE OF SERVICE: 09/06/2017 This 86-year-old woman who was admitted with new onset ascites, recurrent and possibly malignant ascites, but cytology negative twice. The abdominal ultrasound and further ultrasound thoracentesis and possible biopsy is planned by [facility]. Abdominal ultrasound showed moderate recurrence of abdominal pelvic ascites. No chest pain. No palpitations. No fever. EXAM: Alert and oriented x3. Pulse 61, blood pressure 130/52, respirations 18, temperature 98.2, pulse ox 97% on room air. HEENT: Conjunctivae normal. NECK: No jugular venous distention. CARDIOVASCULAR: S1, S2 muffled. RESPIRATORY: Breath sounds diminished in the bases. A few scattered rhonchi. ABDOMEN: Soft. Ascites present. LEGS: No edema. NERVOUS SYSTEM: Nonfocal. LABS: WBC 5, hemoglobin is 8.7. Creatinine is 1.4. AST is 47, ALT 78. Albumin is 2.9. ASSESSMENT: 1. New onset ascites, recurrent, possibly malignant, status post abdominal paracentesis. 2. Right adnexal mass consistent with a possible malignancy. 3. Elevated CA-125 levels. 4. Cirrhosis of the liver possibly. 5. Left kidney cystic lesion. 6. Hypertension. 7. Diabetes mellitus type 2. 8. Acute kidney injury with acute renal failure. 9. Shortness of breath, multifactorial. 10.Anemia secondary to chronic disease. RECOMMENDATIONS AND DISCUSSION: Recommend to continue current medical management and continue symptomatic treatment. Otherwise at this time, PT/OT evaluation, possible ECF rehab. Repeat paracentesis and biopsy. Closely follow with Oncology Department. Guarded prognosis. Further recommendations to follow. MMODL / IJN: [id number] /
--- NOTE | 2017-09-06 18:20 | P.PN ---
Subjective Progress Note Date: 09/06/17 Principal diagnosis: rapidly recurrent ascites, vomiting Patient seen today in follow-up. She is sitting in the chair, she denies pain , she does have ongoing abdominal distention but some comfortable, she has no vomiting, can tolerate oral intake, she continues to be able to urinate and have bowel movements without difficulty, she is ambulating in the room. Objective - Vital Signs Vital signs: Vital Signs Temp 98.3 F 09/06/17 14:30 Pulse 65 09/06/17 15:50 Resp 18 09/06/17 15:50 BP 131/63 09/06/17 15:50 Pulse Ox 97 09/06/17 15:10 Intake & Output 09/05/17 09/06/17 09/06/17 18:59 06:59 18:59 Intake Total 900 Balance 900 Weight 102.5 kg 102 kg Intake: Oral 900 Other: Voiding Method Toilet Toilet Toilet # Voids 2 2 2 # Bowel Movements 1 - Constitutional General appearance: Present: cooperative, no acute distress, obese - Respiratory Respiratory: bilateral: CTA - Cardiovascular Heart sounds: normal: S1, S2 - Gastrointestinal General gastrointestinal: Present: distended - Neurologic Neurologic: Present: CNII-XII intact - Musculoskeletal Musculoskeletal: Present: strength equal bilaterally - Psychiatric Psychiatric: Present: A&O x's 3, appropriate affect, intact judgment & insight - Labs CBC & Chem 7: 09/06/17 06:45 09/06/17 06:45 Labs: Abnormal Lab Results - Last 24 Hours (Table) 09/05/17 09/06/17 09/06/17 Range/Units 20:13 01:42 06:45 RBC (3.80-5.40) m/uL Hgb (11.4-16.0) gm/dL Hct (34.0-46.0) % Lymphocytes # (1.0-4.8) k/uL BUN 53 H (7-17) mg/dL Creatinine 1.40 H (0.52-1.04) mg/dL POC Glucose (mg/dL) 251 H 170 H (75-99) mg/dL Calcium 8.3 L (8.4-10.2) mg/dL AST 47 H (14-36) U/L ALT 78 H (9-52) U/L Alkaline Phosphatase 269 H (38-126) U/L Total Protein 5.1 L (6.3-8.2) g/dL Albumin 2.9 L (3.5-5.0) g/dL 09/06/17 09/06/17 09/06/17 Range/Units 06:45 11:45 17:05 RBC 2.87 L (3.80-5.40) m/uL Hgb 8.7 L (11.4-16.0) gm/dL Hct 26.5 L (34.0-46.0) % Lymphocytes # 0.6 L (1.0-4.8) k/uL BUN (7-17) mg/dL Creatinine (0.52-1.04) mg/dL POC Glucose (mg/dL) 178 H 111 H (75-99) mg/dL Calcium (8.4-10.2) mg/dL AST (14-36) U/L ALT (9-52) U/L Alkaline Phosphatase (38-126) U/L Total Protein (6.3-8.2) g/dL Albumin (3.5-5.0) g/dL Assessment and Plan (1) Ascites Narrative/Plan: Patient is going to be evaluated for possible paracentesis today. Suspect malignancy due to rapid recurrence, both of the previous cytology reports were non-diagnostic. Current Visit: Yes Status: Acute Priority: High Code(s): R18.8 - OTHER ASCITES SNOMED Code(s): 465888550 (2) Pelvic mass in female Narrative/Plan: Interventional radiology reviewed case, do not feel patient is appropriate for biopsy. Patient will be referred to FOREIGN LANGUAGES PROFESSOR Oncology Surgeon. This has been communicated with daughter. Current Visit: Yes Status: Acute Priority: High Code(s): R19.00 - INTRA- ABD AND PELVIC SWELLING, MASS AND LUMP, UNSP SITE SNOMED Code(s): 21907647 (3) Normocytic normochromic anemia Narrative/Plan: Anemia workup revealed some iron deficiency, this has been supplemented, no need for transfusion at this time Current Visit: Yes Status: Acute Priority: High Code(s): D64.9 - ANEMIA, UNSPECIFIED SNOMED Code(s): 25258813 Plan: Discussed the change in plans with the patient and contacted her daughter. Plan is for patient to go to rehabilitation at [facility], we will schedule appointment with Dr. Rabbi Tillman FOREIGN LANGUAGES PROFESSOR Oncologist and set up appointment for biopsy. They were agreeable with plan. Patient is stable and okay to be discharged once cleared by Internal Medicine and consulting Physicians. Attests:I performed a history and physical examination of this patient, discussed with dictator. I agree with dictator's note, documented as a scribe.
[2017-09-06 20:41] LABS: Glucose,Whole Blood 183 mg/dL (75-99)
[2017-09-06] MEDS: INSULIN DETEMIR 100 UNIT/ML 10 ML VIAL SQ SCH (20:57)
[2017-09-06] MEDS: MONTELUKAST 10 MG TAB PO SCH (20:57)
[2017-09-07 00:12] VITALS: RESP 16
[2017-09-07] MEDS: INSULIN ASPART 100 UNIT/ML 1 ML 10 ML VIAL SQ SCH ×3 (02:17→12:19)
[2017-09-07 02:18] LABS: Glucose,Whole Blood 108 mg/dL (75-99)
[2017-09-07] MEDS: LEVOTHYROXINE 75 MCG TAB PO SCH (05:22)
[2017-09-07 06:59] VITALS: BP 127/58; PULSE 69; TEMP 98
[2017-09-07 07:07] LABS: Glucose,Whole Blood 142 mg/dL (75-99)
[2017-09-07 07:10] LABS: Basophils % (A) 0 %; Eosinophils # (A) 0.2 k/uL (0-0.7); Eosinophils % (A) 4 %; HCT 25.4 % (34.0-46.0); HGB 8.2 gm/dL (11.4-16.0); Hypochromasia Slight; Lymphocytes # (A) 0.6 k/uL (1.0-4.8); Lymphocytes % (A) 13 %; MCH 29.7 pg (25.0-35.0); MCHC 32.2 g/dL (31.0-37.0); MCV 92.3 fL (80.0-100.0); Mean Platelet Volume 7.5; Monocytes # (A) 0.4 k/uL (0-1.0); Monocytes % (A) 8 %; Neutrophils # (A) 3.3 k/uL (1.3-7.7); Neutrophils % (A) 73 %; Platelet Count 172 k/uL (150-450); RBC 2.75 m/uL (3.80-5.40); RDW 15.5 % (11.5-15.5); WBC 4.5 k/uL (3.8-10.6)
[2017-09-07 07:15] LABS: Albumin 2.9 g/dL (3.5-5.0); Calcium 8.3 mg/dL (8.4-10.2); Potassium 4.5 mmol/L (3.5-5.1); Total Bilirubin 0.3 mg/dL (0.2-1.3); Total Protein 5.1 g/dL (6.3-8.2)
[2017-09-07] MEDS: FERROUS SULFATE 325 MG TAB PO SCH (07:39)
[2017-09-07] MEDS: PANTOPRAZOLE 40 MG TABLET PO SCH (07:39)
[2017-09-07] MEDS: METOPROLOL SUCCINATE (ER) 100 MG TAB.ER.24H PO SCH (08:39)
[2017-09-07] MEDS: FUROSEMIDE 40 MG TAB PO SCH (08:39)
[2017-09-07] MEDS: hydrALAZINE HCL 25 MG TAB PO SCH (08:39)
[2017-09-07] MEDS: SPIRONOLACTONE 25 MG TAB PO SCH (08:39)
[2017-09-07] MEDS: glipiZIDE 5 MG TAB PO SCH (08:39)
[2017-09-07] MEDS: GABAPENTIN 400 MG CAP PO SCH (08:39)
[2017-09-07] MEDS: ATORVASTATIN 10 MG TAB PO SCH (08:40)
[2017-09-07] MEDS: FLUTICASONE 50MCG/SPRAY NASAL 16GM EA NOSTRIL SCH (08:40)
[2017-09-07] MEDS: amLODIPine 5 MG TAB PO SCH (08:40)
[2017-09-07] MEDS: ALLOPURINOL 100 MG TAB PO SCH (08:40)
--- NOTE | 2017-09-07 09:15 | P.PN ---
Subjective Patient is seen in follow-up for acute kidney injury. Her baseline creatinine is near 1 and is stable at 1.36 today. Patient presented with abdominal distention and underwent paracentesis on August 26 with 3.2 L removed and on August 31 with 3 liters removed. She had another paracentesis done yesterday 3.3 L removed. She did receive 25 g of albumin prior to the procedure. She is currently resting in bed. Admits to good urine output. No vomiting or diarrhea. Vital signs are stable. General: The patient appeared well nourished and normally developed. HEENT: Head exam is unremarkable. Neck is without jugular venous distension. LUNGS: Lungs are clear to auscultation and percussion. Breath sounds decreased. HEART: Rate and Rhythm are regular. First and second heart sounds normal. No murmurs, rubs or gallops. ABDOMEN: Abdominal exam reveals normal bowel sounds. Soft. Distention noted. EXTREMITITES: 1+ edema. Objective - Vital Signs Vital signs: Vital Signs Temp 98 F 09/07/17 05:15 Pulse 69 09/07/17 05:15 Resp 16 09/07/17 05:15 BP 127/58 09/07/17 05:15 Pulse Ox 94 L 09/07/17 05:15 Intake & Output 09/06/17 09/07/17 09/07/17 18:59 06:59 18:59 Output Total 1 Balance -1 Weight 98 kg Output: Urine 1 Other: Voiding Method Toilet Toilet # Voids 2 1 # Bowel Movements 1 - Labs CBC & Chem 7: 09/07/17 06:38 09/07/17 06:38 Labs: Abnormal Lab Results - Last 24 Hours (Table) 09/06/17 09/06/17 09/06/17 Range/Units 11:45 17:05 20:37 RBC (3.80-5.40) m/uL Hgb (11.4-16.0) gm/dL Hct (34.0-46.0) % Lymphocytes # (1.0-4.8) k/uL BUN (7-17) mg/dL Creatinine (0.52-1.04) mg/dL Glucose (74-99) mg/dL POC Glucose (mg/dL) 178 H 111 H 183 H (75-99) mg/dL Calcium (8.4-10.2) mg/dL AST (14-36) U/L ALT (9-52) U/L Alkaline Phosphatase (38-126) U/L Total Protein (6.3-8.2) g/dL Albumin (3.5-5.0) g/dL 09/07/17 09/07/17 09/07/17 Range/Units 02:09 06:38 06:38 RBC 2.75 L (3.80-5.40) m/uL Hgb 8.2 L (11.4-16.0) gm/dL Hct 25.4 L (34.0-46.0) % Lymphocytes # 0.6 L (1.0-4.8) k/uL BUN 50 H (7-17) mg/dL Creatinine 1.36 H (0.52-1.04) mg/dL Glucose 127 H (74-99) mg/dL POC Glucose (mg/dL) 108 H (75-99) mg/dL Calcium 8.3 L (8.4-10.2) mg/dL AST 39 H (14-36) U/L ALT 65 H (9-52) U/L Alkaline Phosphatase 241 H (38-126) U/L Total Protein 5.1 L (6.3-8.2) g/dL Albumin 2.9 L (3.5-5.0) g/dL 09/07/17 Range/Units 07:04 RBC (3.80-5.40) m/uL Hgb (11.4-16.0) gm/dL Hct (34.0-46.0) % Lymphocytes # (1.0-4.8) k/uL BUN (7-17) mg/dL Creatinine (0.52-1.04) mg/dL Glucose (74-99) mg/dL POC Glucose (mg/dL) 142 H (75-99) mg/dL Calcium (8.4-10.2) mg/dL AST (14-36) U/L ALT (9-52) U/L Alkaline Phosphatase (38-126) U/L Total Protein (6.3-8.2) g/dL Albumin (3.5-5.0) g/dL Assessment and Plan Plan: Assessment: 1. Nonoliguric acute kidney injury secondary to ATN secondary to third spacing of fluid. Creatinine 1.36 today. Baseline creatinine near 1. 2. Ascites status post paracentesis on August 26 with 3.2 L drained; 08/31 with 3 L drained; September 06 with 3.3 L drained. 3. 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 Oncology following. 4. Insulin-dependent diabetes mellitus. 5. Benign hypertension. Controlled. Partially volume sensitive. 6. Lower extremity edema. 7. Proteinuria which is likely secondary to underlying diabetic kidney disease. 8. Anemia. Iron deficiency noted. Status post 3 doses of IV iron. Plan: Continue Aldactone 25 mg twice daily. Increase Lasix to 60 mg daily. Repeat electrolytes in the morning. Anticipate discharge soon. She really to follow-up as an outpatient in the next 2 weeks. She will need to get a basic metabolic panel checked within 2-3 days of discharge.
--- NOTE | 2017-09-07 10:28 | US ---
EXAMINATION TYPE: US paracentesis abd w/image DATE OF EXAM: 09/06/2017 COMPARISON: NONE HISTORY: Ascites. PROCEDURE: Maximal barrier technique was utilized. The skin overlying a suitable pocket of fluid was localized with ultrasound and the overlying skin was prepped and draped. Ultrasound was utilized with sterile technique. Lidocaine was used for local anesthesia and a skin annie made with a scalpel. Catheter was advanced under direct ultrasound guidance into a suitable pocket of fluid and approximately 3.3 liter s of serous fluid were removed. Catheter was withdrawn and hemostasis achieved. There is no immedia te complication; the patient is discharged in stable condition. IMPRESSION: STATUS POST ULTRASOUND GUIDED PARACENTESIS FOR PALLIATION OF ASCITES. THIS PROCEDURE WA S PERFORMED BY THE UNDERSIGNED.
--- NOTE | 2017-09-07 10:36 | P.DS ---
Providers Date of admission: 08/25/17 00:57 Expected date of discharge: 09/07/17 Attending physician: Anthony Flores Consults: 08/25/17 02:12 Consult Physician Routine Consulting Provider: Apoorva Dunn Consult Reason/Comments: ascites, nausea, vomiting Do you want consulting provider notified?: Yes 08/25/17 02:14 Consult Physician Routine Consulting Provider: Anson Nascimento Consult Reason/Comments: pelvic mass Do you want consulting provider notified?: Yes 08/25/17 06:16 Consult Physician Routine Consulting Provider: Denia Lambert Consult Reason/Comments: chest pain, nausea. htn Do you want consulting provider notified?: Yes, Notify in am 08/25/17 12:43 Consult Physician Routine Consulting Provider: Jaycee Richey Consult Reason/Comments: Pelvic mass/ CT scan from [facility]. Do you want consulting provider notified?: Yes 08/26/17 15:47 Consult Physician Routine Consulting Provider: Travis Cline Consult Reason/Comments: Mediport Placement/Chemotherapy Do you want consulting provider notified?: Yes 08/27/17 10:32 Consult Physician Routine Consulting Provider: eSda Vincent Consult Reason/Comments: elevated creatine Do you want consulting provider notified?: Yes Primary care physician: Stated None Hospital Course: Final Diagnoses: 1. New onset ascites, recurrent, possible malignant, status post abdominal paracentesis X3 2. Right adnexal mass consistent with a possible malignancy 3. Elevated CA-125 levels 4. Cirrhosis of the liver possibly 5. Left kidney cystic lesion 6. Acute renal failure 7. Hypertension 8. Diabetes mellitus 9. Iron deficient anemia Hospital course: This is an 86-year-old female admitted with new onset ascites, recurrent, possibly malignant ascites but cytology negative twice. Underwent paracentesis on August 26 with 3.2 L removed, on August 31 with 3 L removed and on September 06 with 3.3 L removed. Evaluated by multiple consults including oncology, surgery and interventional radiology. Interventional radiology recommended no biopsy at this time. Patient referred to TECHNICAL ARTIST/ONCOLOGY Surgery. Significant clinical improvement. Patient has been cleared by all consults for discharge to [facility]. Appointment will be scheduled with Dr. Rabbi Tillman TECHNICAL ARTIST ONcologist for biospy as per oncology. Patient is being discharged to [facility] today in a stable condition with guarded prognosis. EXAM: Alert and oriented 3, no acute distress,CV: S1, S2 muffled,LUNGS: Bilateral bases diminished, occasional scattered rhonchi, ABD: Soft, ascites, positive bowel sounds.Neuro: No focal deficits. The impression and plan of care has been dictated as directed. : I performed a history and examination of this patient, discussed the same with the dictator. I agree with the dictator's note ,documented as a scribe. Any additional findings or plans will be noted. Time taken: 35 minutes Patient Condition at Discharge: Stable Plan - Discharge Summary Discharge Rx Participant: Yes New Discharge Prescriptions: New ALPRAZolam [Xanax] 0.25 mg PO HS PRN #4 tab PRN Reason: Anxiety Ferrous Sulfate [Iron (65 MG Elemental)] 325 mg PO BID-W/MEALS tab Fluticasone Nasal [place] [Flonase Nasal [place]] 2 spray EA NOSTRIL DAILY spr Furosemide [Lasix] 40 mg PO DAILY tab hydrALAZINE HCL [Apresoline] 25 mg PO TID tab HYDROcodone/APAP 5-325MG [[place] 5-325] 1 each PO Q6HR PRN #12 tab PRN Reason: Pain Scale 6 To 10 Pantoprazole [Protonix] 40 mg PO AC-BID tablet. Spironolactone [Aldactone] 25 mg PO BID tab INSULIN LISPRO (HumaLOG) [humaLOG] 0 unit SQ ACHS #1 vial Continue Allopurinol [Zyloprim] 100 mg PO DAILY Clopidogrel [Plavix] 75 mg PO DAILY Montelukast [Singulair] 10 mg PO DAILY Gabapentin [Neurontin] 400 mg PO BID glipiZIDE [Glucotrol] 5 mg PO BID amLODIPine [Norvasc] 5 mg PO DAILY tab Insulin Detemir [Levemir] 20 unit SQ HS syr Metoprolol Succinate (ER) [Toprol XL] 100 mg PO DAILY tab.er.24h Atorvastatin [Lipitor] 10 mg PO DAILY Levothyroxine Sodium 200 mcg PO DAILY Levothyroxine Sodium 25 mcg PO DAILY Furosemide [Lasix] 20 mg PO DAILY #0 Discontinued Ranitidine HCl 300 mg PO DAILY Meloxicam [Mobic] 15 mg PO DAILY Fluticasone Nasal [place] [Flonase Nasal [place]] 1 - 2 spray EA NOSTRIL DAILY ALPRAZolam [Xanax] 0.25 mg PO DAILY PRN #7 tab PRN Reason: Agitation Or Acute Anxiety Insulin Aspart [NovoLOG (formulary)] See Protocol SQ AC-TID Discharge Medication List Allopurinol [Zyloprim] 100 mg PO DAILY 03/06/17 [History] Clopidogrel [Plavix] 75 mg PO DAILY 03/06/17 [History] Gabapentin [Neurontin] 400 mg PO BID 03/06/17 [History] Montelukast [Singulair] 10 mg PO DAILY 03/06/17 [History] glipiZIDE [Glucotrol] 5 mg PO BID 03/06/17 [History] Insulin Detemir [Levemir] 20 unit SQ HS syr 03/12/17 [Rx] Metoprolol Succinate (ER) [Toprol XL] 100 mg PO DAILY tab.er.24h 03/12/17 [Rx] amLODIPine [Norvasc] 5 mg PO DAILY tab 03/12/17 [Rx] Atorvastatin [Lipitor] 10 mg PO DAILY 08/25/17 [History] Levothyroxine Sodium 25 mcg PO DAILY 08/25/17 [History] Levothyroxine Sodium 200 mcg PO DAILY 08/25/17 [History] ALPRAZolam [Xanax] 0.25 mg PO HS PRN #4 tab 09/07/17 [Rx] Ferrous Sulfate [Iron (65 MG Elemental)] 325 mg PO BID-W/MEALS tab 09/07/17 [Rx ] Fluticasone Nasal [place] [Flonase Nasal [place]] 2 spray EA NOSTRIL DAILY spr [Rx] Furosemide [Lasix] 20 mg PO DAILY #0 09/07/17 [Rx] Furosemide [Lasix] 40 mg PO DAILY tab 09/07/17 [Rx] HYDROcodone/APAP 5-325MG [[place] 5-325] 1 each PO Q6HR PRN #12 tab 09/07/17 [Rx] INSULIN LISPRO (HumaLOG) [humaLOG] 0 unit SQ ACHS #1 vial 09/07/17 [Rx] Pantoprazole [Protonix] 40 mg PO AC-BID tablet. 09/07/17 [Rx] Spironolactone [Aldactone] 25 mg PO BID tab 09/07/17 [Rx] hydrALAZINE HCL [Apresoline] 25 mg PO TID tab 09/07/17 [Rx] Follow up Appointment(s)/Referral(s): Jaycee Richey MD [STAFF PHYSICIAN] - 1 Week (Dr. Richey office to be in touch with family. Per Rossi Matt her office will arrange for outpatient follow-up with OBGYN-ONCOLOGIST. No follow-up required with Dr. Richey at this time. ) Luke Landaverde MD [STAFF PHYSICIAN] - 09/06/17 4:15 pm Yordy Avila DO [STAFF PHYSICIAN] - 2 Weeks Mingo Kuhn MD [REFERRING] - 3 Days Patient Instructions/Handouts: Ovarian Cancer (DC) Activity/Diet/Wound Care/Special Instructions: Yanet
[2017-09-07 11:19] LABS: Glucose,Whole Blood 205 mg/dL (75-99)
[2017-09-07] MEDS: HYDROcodone/APAP 5-325MG 1 EACH TAB PO PRN (12:17)
== END 2017-09-07 13:36 | DRG 754 ==
LOC: 5MS5E 08-25 00:57 → 5ONC 08-26 16:00
PROVIDERS: ADMIT Internal Medicine; ATTEND Internal Medicine
PROC: 02HV33Z Insertion of Infusion Device into Superior Vena Cava, Percutaneous Approach (ICD-10-PCS; principal; 2017-08-28 07:30)
PROC: 0JH60WZ Insertion of Totally Implantable Vascular Access Device into Chest Subcutaneous Tissue and Fascia, Open Approach (ICD-10-PCS; principal; 2017-08-28 07:30)
PROC: 0W9G3ZZ Drainage of Peritoneal Cavity, Percutaneous Approach (ICD-10-PCS; 2017-08-29)
PROC: 0W9G3ZZ Drainage of Peritoneal Cavity, Percutaneous Approach (ICD-10-PCS; 2017-08-31)
PROC: 0W9G3ZZ Drainage of Peritoneal Cavity, Percutaneous Approach (ICD-10-PCS; 2017-09-07)
DX: C56.1 Malignant neoplasm of right ovary (principal); N17.0 Acute kidney failure with tubular necrosis; R18.0 Malignant ascites; K76.6 Portal hypertension; D50.9 Iron deficiency anemia, unspecified; D63.8 Anemia in other chronic diseases classified elsewhere; E11.29 Type 2 diabetes mellitus with other diabetic kidney complication; E11.42 Type 2 diabetes mellitus with diabetic polyneuropathy; E11.621 Type 2 diabetes mellitus with foot ulcer; E78.5 Hyperlipidemia, unspecified; E86.9 Volume depletion, unspecified; E89.0 Postprocedural hypothyroidism; I10 Essential (primary) hypertension; I35.0 Nonrheumatic aortic (valve) stenosis; I45.10 Unspecified right bundle-branch block; K29.70 Gastritis, unspecified, without bleeding; K74.60 Unspecified cirrhosis of liver; K75.81 Nonalcoholic steatohepatitis (NASH); L97.509 Non-pressure chronic ulcer of other part of unspecified foot with unspecified severity; N28.1 Cyst of kidney, acquired; N28.89 Other specified disorders of kidney and ureter; R32 Unspecified urinary incontinence; T50.2X5A Adverse effect of carbonic-anhydrase inhibitors, benzothiadiazides and other diuretics, initial encounter; Z79.02 Long term (current) use of antithrombotics/antiplatelets; Z79.1 Long term (current) use of non-steroidal anti-inflammatories (NSAID); Z79.4 Long term (current) use of insulin; Z79.899 Other long term (current) drug therapy; Z87.440 Personal history of urinary (tract) infections; Z87.442 Personal history of urinary calculi; Z87.891 Personal history of nicotine dependence; Z90.710 Acquired absence of both cervix and uterus; Z90.721 Acquired absence of ovaries, unilateral; Z79.84 Long term (current) use of oral hypoglycemic drugs; Z91.030 Bee allergy status; Z88.0 Allergy status to penicillin; Z88.2 Allergy status to sulfonamides; Z91.018 Allergy to other foods; Z91.048 Other nonmedicinal substance allergy status; Z96.649 Presence of unspecified artificial hip joint
CPT/HCPCS: 49083; 71045; 74176; 76700; 76705; 76856; 77001; 80048; 80053; 81001; 82272; 82378; 82728; 83036; 83540; 83550; 83735; 84439; 84443; 84484; 85025; 85027; 85610; 85730; 86304; 87324; 88108; 88305; 88341; 88342; 93005; 93306; 94760

== ENCOUNTER 2017-09-10 12:33 | Inpatient (IN) | payer MEDICARE, BC ==
[2017-09-10 17:07] LABS: Basophils % (A) 1 %; Eosinophils # (A) 0.2 k/uL (0-0.7); Eosinophils % (A) 2 %; HCT 26.5 % (34.0-46.0); HGB 8.4 gm/dL (11.4-16.0); Hypochromasia Slight; Lymphocytes # (A) 0.8 k/uL (1.0-4.8); Lymphocytes % (A) 11 %; MCH 29.8 pg (25.0-35.0); MCHC 31.7 g/dL (31.0-37.0); Monocytes # (A) 0.4 k/uL (0-1.0); Monocytes % (A) 6 %; Neutrophils # (A) 5.4 k/uL (1.3-7.7); Neutrophils % (A) 78 %; Platelet Count 232 k/uL (150-450); RBC 2.82 m/uL (3.80-5.40); RDW 15.9 % (11.5-15.5); WBC 6.9 k/uL (3.8-10.6)
[2017-09-10 17:10] LABS: INR 1.1 (<1.2); Prothrombin Time 10.6 sec (9.0-12.0)
[2017-09-10 17:11] LABS: Glucose,Whole Blood 113 mg/dL (75-99)
[2017-09-10 17:13] LABS: Lactic Acid, Venous 0.8 mmol/L (0.7-2.0)
[2017-09-10 17:14] LABS: Albumin 3.2 g/dL (3.5-5.0); Calcium 9.2 mg/dL (8.4-10.2); Potassium 4.5 mmol/L (3.5-5.1); Total Bilirubin 0.4 mg/dL (0.2-1.3); Total Protein 5.5 g/dL (6.3-8.2)
[2017-09-10] MEDS ORDERED: ALPRAZolam 0.25 MG TAB PO PRN (17:47)
[2017-09-10] MEDS ORDERED: HYDROcodone/APAP 5-325MG 1 EACH TAB PO PRN (17:47)
[2017-09-10] MEDS: INSULIN ASPART 100 UNIT/ML 1 ML 10 ML VIAL SQ SCH ×2 (18:12→22:31)
[2017-09-10] MEDS: FERROUS SULFATE 325 MG TAB PO SCH (18:14)
[2017-09-10] MEDS: PANTOPRAZOLE 40 MG TABLET PO SCH (18:14)
[2017-09-10] MEDS: glipiZIDE 5 MG TAB PO SCH (18:15)
--- NOTE | 2017-09-10 19:06 | CT ---
EXAMINATION: CT brain wo con DATE AND TIME: 09/10/2017 6:45 PM ORDERING PROVIDER: Dilip Sheet CLINICAL INDICATION: lethargy TECHNIQUE: Standard departmental protocol. COMPARISON: None. DESCRIPTION: The calvarium is intact. There is no intracranial hemorrhage. There is no mass or mass e ffect. There is no definite new attenuation defect. Remainder of the intra-axial and extra-axial comp artment examination is unremarkable. The paranasal sinuses, middle ear cavities, and mastoid sinus ai r cells are clear. The orbits are intact. IMPRESSION: NO ACUTE PROCESS.
--- NOTE | 2017-09-10 19:52 | XR ---
EXAMINATION: XR chest 1V portable DATE AND TIME: 09/10/2017 7:41 PM ORDERING PROVIDER: Ibeth Nelson MD CLINICAL INDICATION: chf TECHNIQUE: AP portable upright COMPARISON: 08/28/2017 DESCRIPTION: Left IJ Port-A-Cath tip superimposed over the upper SVC. The pleural spaces are negative. The lungs are clear. The cardiac silhouette appears mildly enlarged. The mediastinal and pleural silhouettes are unremarkable. The skeletal structures are intact without focal findings. The soft tissues are unremarkable. IMPRESSION: NO ACUTE PROCESS.
[2017-09-10] MEDS: LACTULOSE 20 GM/30 ML CUP PO PRN (20:13)
[2017-09-10] MEDS: LACTULOSE 200 GM/300 ML (FROM 1/2 GAL JUG) RECTAL SCH (20:22)
[2017-09-10] MEDS: cefTRIAXone IN SWFI 1,000 MG/10 ML SYRINGE IVP SCH (20:22)
[2017-09-10] MEDS: SPIRONOLACTONE 25 MG TAB PO SCH (20:24)
[2017-09-10] MEDS: HEPARIN SODIUM,PORCINE 5,000 UNIT/ML 1 ML VIAL SQ SCH (20:24)
[2017-09-10] MEDS: GABAPENTIN 400 MG CAP PO SCH (20:24)
[2017-09-10 21:07] LABS: Glucose,Whole Blood 129 mg/dL (75-99)
--- NOTE | 2017-09-10 21:45 | HP ---
HISTORY AND PHYSICAL CHIEF COMPLAINTS: Change in mental status as well as ascites. HISTORY OF PRESENT ILLNESS: This 86-year-old woman with a past medical history of multiple medical problems including renal failure, hypertension, diabetes mellitus , was recently admitted with new onset recurrent ascites. The patient has had multiple paracentesis. Ovarian tumor was also suspected; however, the biopsy is negative at this time. Evaluation by Hematology/Oncology has been scheduled with [facility] for biopsy. Otherwise, the patient was discharged to [facility] in [place]. In [place], the patient was noted to have increased abdominal distension and change in mental status and the patient was transferred to [facility]. From [facility], the patient was transferred to [facility] and was admitted for further evaluation and treatment. The patient had an ammonia of 82 and also ascites. There is no history any fever, rigors, chills. No history of any headache, loss of consciousness, seizures. The patient is unable to give a coherent history. Most of it is taken from my discussion with staff as well as review of the chart at this time as well as discussion with the ER physician in [place]. PAST MEDICAL HISTORY: History of recent ascites and ovarian tumor, history of cirrhosis of the liver, possibly history of renal failure, hypertension, diabetes mellitus, iron- deficiency anemia. MEDICATIONS PRIOR TO ADMISSION: Include home medications are: 1. Xanax 0.25 q.4h p.r.n. 2. [place] 5 mg every 6 hours p.r.n. 3. Alprazolam 25 mg t.i.d. 4. Humalog scale. 5. Glucotrol 5 mg a.c. b.i.d. 6. Aldactone 25 mg b.i.d. 7. Protonix 40 mg b.i.d. 8. Neurontin 400 mg p.o. b.i.d. 9. Iron 320 mg p.o. b.i.d. 10.Norvasc 5 mg p.o. daily. 11.Singular 10 mg p.o. daily. 12.Toprol-XL 100 mg p.o. daily. 13.Levothyroxine 125 mcg p.o. daily. 14.Levemir 10 units subcu q.h.s. 15.Lasix 60 mg p.o. daily. 16.Flonase 2 sprays daily. 17.Plavix 75 mg p.o. daily. 18.Zyloprim 100 mg p.o. daily. ALLERGIES: ASPARAGUS, ASPIRIN, CAULIFLOWER, PENICILLIN, SULFA, VENOM [place], WOOD. FAMILY HISTORY, SOCIAL HISTORY, REVIEW OF SYSTEMS: Could not be taken because of the patient's change in mental status. PHYSICAL EXAM: Patient is stuporous. Pulse 79, blood pressure 149/64, respirations 16, temperature 98 degrees, pulse ox 99% on 2L. The patient is able to be arousable. HEENT: Conjunctivae normal. Oral mucosa moist. NECK: No jugular venous distention. No carotid bruits. No lymph node enlargement. CARDIOVASCULAR: S1, S2 muffled. No S3, S4. RESPIRATORY: Breath sounds diminished in the bases. A few scattered rhonchi and crackles. ABDOMEN: Soft. Ascites present. LEGS: Minimal leg edema. NERVOUS SYSTEM: Could not be examined completely because of the patient's stuporous state. SKIN: No ulcer, rash or bleeding. LYMPHATIC: No lymphadenopathy in neck or axillae. JOINTS: No active deforming arthropathy. LAB STUDIES: WBC 6, hemoglobin is 8.4. Sodium 146, potassium 4.5, creatinine is 1.20. ASSESSMENT: 1. Change in mental status, possibly hepatic encephalopathy with high ammonia. 2. Recurrent ascites for evaluation. 3. Possible pelvic tumor. 4. Increased creatinine with chronic kidney disease stage 3. 5. History of congestive heart failure. 6. Diabetes mellitus type 2. 7. Hypertension. 8. Hyperlipidemia. 9. Degenerative joint disease. 10.History of kidney stones. 11.History of hysterectomy. RECOMMENDATIONS AND DISCUSSION: In this 86-year-old woman who presented with multiple medical problems, will monitor the patient closely, continue with the current medical management and symptomatic, the lactulose. Will continue the rest of the medications, DVT prophylaxis. I would also recommend Interventional Radiology evaluation and Gastroenterology evaluation as well. I would also get a portable chest x-ray. See orders for further details and additional lab testing. Also recommend cultures as well and I would also recommend a course of empiric antibiotics. The overall prognosis guarded because of multiple complex medical issues. Further recommendations to follow. MMODL / IJN: [id number] / MTDD
[2017-09-10] MEDS: INSULIN DETEMIR 100 UNIT/ML 10 ML VIAL SQ SCH (22:31)
[2017-09-10 22:39] LABS: Appearance,Urine Clear (Clear); Bilirubin,Urine Negative (Negative); Blood,Urine Small (Negative); Color,Urine Yellow; Glucose,Urine (UA) Negative (Negative); Hyaline Casts,Urine 4 /lpf (0-2); Ketones,Urine Negative (Negative); Leukocyte Esterase,Urine Small (Negative); Mucus,Urine Rare /hpf; Nitrite,Urine Negative (Negative); PH, Urine 5.5 (5.0-8.0); Protein,Urine 1+ (Negative); RBC,Urine 6 /hpf (0-5); Specific Gravity,Urine 1.022 (1.001-1.035); Urobilinogen,Urine <2.0 mg/dL (<2.0); WBC,Urine 12 /hpf (0-5)
[2017-09-10] MEDS: hydrALAZINE HCL 25 MG TAB PO SCH (23:34)
[2017-09-11] MEDS: LEVOTHYROXINE 100 MCG TAB PO SCH (06:21)
[2017-09-11] MEDS: LEVOTHYROXINE 25 MCG TAB PO SCH (06:22)
[2017-09-11] MEDS: FUROSEMIDE 20 MG TAB PO SCH (06:24)
[2017-09-11 06:59] LABS: Glucose,Whole Blood 152 mg/dL (75-99)
[2017-09-11] MEDS: FERROUS SULFATE 325 MG TAB PO SCH ×2 (08:07→17:37)
[2017-09-11] MEDS: INSULIN ASPART 100 UNIT/ML 1 ML 10 ML VIAL SQ SCH ×4 (08:07→22:14)
[2017-09-11] MEDS: ALLOPURINOL 100 MG TAB PO SCH (08:07)
[2017-09-11] MEDS: PANTOPRAZOLE 40 MG TABLET PO SCH ×2 (08:07→17:38)
[2017-09-11] MEDS: glipiZIDE 5 MG TAB PO SCH ×2 (08:07→17:37)
[2017-09-11] MEDS: CLOPIDOGREL 75 MG TAB PO SCH (08:08)
[2017-09-11] MEDS: FLUTICASONE 50MCG/SPRAY NASAL 16GM EA NOSTRIL SCH (08:09)
[2017-09-11] MEDS: HEPARIN SODIUM,PORCINE 5,000 UNIT/ML 1 ML VIAL SQ SCH ×2 (08:10→22:04)
[2017-09-11] MEDS: GABAPENTIN 400 MG CAP PO SCH ×2 (08:10→22:04)
[2017-09-11] MEDS: METOPROLOL SUCCINATE (ER) 100 MG TAB.ER.24H PO SCH (08:10)
[2017-09-11] MEDS: hydrALAZINE HCL 25 MG TAB PO SCH ×3 (08:10→22:04)
[2017-09-11] MEDS: LACTULOSE 200 GM/300 ML (FROM 1/2 GAL JUG) RECTAL SCH (08:10)
[2017-09-11] MEDS: SPIRONOLACTONE 25 MG TAB PO SCH ×2 (08:11→22:04)
[2017-09-11] MEDS: MONTELUKAST 10 MG TAB PO SCH (08:11)
[2017-09-11] MEDS: amLODIPine 5 MG TAB PO SCH (08:11)
[2017-09-11] MEDS: cefTRIAXone IN SWFI 1,000 MG/10 ML SYRINGE IVP SCH (08:28)
[2017-09-11] MEDS: LACTULOSE 20 GM/30 ML CUP PO PRN (08:28)
[2017-09-11 08:34] LABS: Basophils % (A) 1 %; Eosinophils # (A) 0.1 k/uL (0-0.7); Eosinophils % (A) 2 %; HCT 24.8 % (34.0-46.0); HGB 8.1 gm/dL (11.4-16.0); Lymphocytes # (A) 0.7 k/uL (1.0-4.8); Lymphocytes % (A) 13 %; MCHC 32.9 g/dL (31.0-37.0); MCV 91.3 fL (80.0-100.0); Mean Platelet Volume 7.4; Monocytes # (A) 0.3 k/uL (0-1.0); Monocytes % (A) 6 %; Neutrophils # (A) 3.9 k/uL (1.3-7.7); Neutrophils % (A) 76 %; Platelet Count 195 k/uL (150-450); RBC 2.71 m/uL (3.80-5.40); WBC 5.1 k/uL (3.8-10.6)
--- NOTE | 2017-09-11 09:39 | P.CONS ---
History of Present Illness - Reason for Consult Consult date: 09/11/17 Ascites Requesting physician: Dilip E Sheet - History of Present Illness 86-year-old female admitted with altered mental status and increased abdominal distention ascites. She has recently hospitalized and discharged within the past few weeks with ascites status post paracentesis with negative cytology as well as a pelvic mass and elevated CEA 125 elevated at 420; presently being evaluated in the outpatient setting. Last paracentesis was on 09/06 with 3.3 L removed and 3.0 L removed on 2017. The etiology of her ascites at this time is unclear initially thought related to a possible underlying malignancy however with cirrhotic morphology on abdominal imaging ascites may be related to underlying nonalcoholic fatty liver disease cirrhosis. CT of the abdomen on 08/27/2017 demonstrated a lobulated-appearing liver without focal mass. Abdominal ultrasound was reported cirrhotic morphology of the liver. Hemoglobin 8.4. White count 6.9. Platelet 232. INR 1.1. BUN 54. Creatinine 1.2. Total bilirubin 0.4. AST 33. ALT 52. Alkaline phosphatase 242. ALT 52. AST 33. Ammonia 82 she received lactulose presently 54. Albumin 3.2. Review of Systems Constitutional: Denies fever, chills, sweats, weight gain, or loss. HEENT: Negative for migraines, blurred vision or loss, earaches, drainage, tinnitus, oral mucosal lesions, dysphagia, or odynophagia. CARDIAC: Negative for chest pain, arrhythmias, or palpitation. RESPIRATORY: Negative for shortness of breath, hemoptysis, cough, or sputum production. GI: See HPI for pertinent findings. : Negative for hematuria, urgency, frequency, polyuria, or dysuria. GYNc: Pelvic mass. Negative vaginal discharge. MUSCULOSKELETAL: Negative for muscle aches, swelling, arthritis, and arthralgias. NEUROLOGIC: Negative for stroke or TIA. ENDOCRINE: Negative for thyroid problems. SKIN: Negative for rash or itching. PSYCHIATRIC: Negative history for depression and anxiety Past Medical History Past Medical History: Heart Failure, Diabetes Mellitus, Hyperlipidemia, Hypertension, Thyroid Disorder Additional Past Medical History / Comment(s): arthritis, thyroidectomy, kidney stones, retinal correction surgery. History of Any Multi-Drug Resistant Organisms: None Reported Past Surgical History: Hysterectomy Additional Past Surgical History / Comment(s): retinal correction surgery, hip replace x2. Neck surgery. pt states doesn't remember all medical history. Past Anesthesia/Blood Transfusion Reactions: No Reported Reaction Additional Past Anesthesia/Blood Transfusion Reaction / Comm: pt states hallucinations with anesthesia. Past Psychological History: No Psychological Hx Reported Smoking Status: Former smoker Past Alcohol Use History: None Reported Past Drug Use History: None Reported Additional Drug Use History / Comment(s): quit smoking in 2003 - Past Family History Father Family Medical History: Unable to Obtain Mother Family Medical History: Unable to Obtain Medications and Allergies Home Medications Medication Instructions Recorded Confirmed Type Allopurinol [Zyloprim] 100 mg PO DAILY 03/06/17 09/10/17 History Clopidogrel [Plavix] 75 mg PO DAILY 03/06/17 09/10/17 History Gabapentin [Neurontin] 400 mg PO BID 03/06/17 09/10/17 History Montelukast [Singulair] 10 mg PO DAILY 03/06/17 09/10/17 History Insulin Detemir [Levemir] 20 unit SQ HS syr 03/12/17 09/10/17 Rx Metoprolol Succinate (ER) [Toprol 100 mg PO DAILY tab.er.24h 03/12/17 09/10/17 Rx XL] Levothyroxine Sodium 25 mcg PO DAILY 08/25/17 09/10/17 History Levothyroxine Sodium 200 mcg PO DAILY 08/25/17 09/10/17 History Ferrous Sulfate [Iron (65 MG 325 mg PO BID-W/MEALS tab 09/07/17 09/10/17 Rx Elemental)] Fluticasone Nasal [place] [Flonase 2 spray EA NOSTRIL DAILY spr 09/07/17 Rx Nasal [place]] Pantoprazole [Protonix] 40 mg PO AC-BID tablet.dr 09/07/17 09/10/17 Rx Spironolactone [Aldactone] 25 mg PO BID tab 09/07/17 09/10/17 Rx hydrALAZINE HCL [Apresoline] 25 mg PO TID tab 09/07/17 09/10/17 Rx ALPRAZolam [Xanax] 0.25 mg PO Q24H PRN 09/10/17 09/10/17 History Furosemide [Lasix] 60 mg PO DAILY 09/10/17 09/10/17 History HYDROcodone/APAP 5-325MG [[place] 1 tab PO Q6HR PRN 09/10/17 09/10/17 History 5-325] INSULIN LISPRO (HumaLOG) [humaLOG] See Protocol SQ ACHS 09/10/17 09/10/17 History amLODIPine [Norvasc] 5 mg PO DAILY 09/10/17 09/10/17 History glipiZIDE [Glucotrol] 5 mg PO AC-BID 09/10/17 09/10/17 History Allergies Allergy/AdvReac Type Severity Reaction Status Date / Time asparagus Allergy Unknown Verified 09/10/17 16:03 aspirin Allergy Rash/Hives Verified 09/10/17 16:03 Cauliflower Allergy Unknown Verified 09/10/17 16:03 Penicillins Allergy Rash/Hives Verified 09/10/17 16:03 Sulfa (Sulfonamide Allergy Rash/Hives Verified 09/10/17 16:03 Antibiotics) venom-honey bee Allergy Anaphylaxis Verified 09/10/17 16:03 wool Allergy Rash/Hives Verified 09/10/17 16:03 Physical Exam Vitals: Vital Signs Temp Pulse Resp BP Pulse Ox 09/11/17 06:18 99.0 F 85 18 153/67 98 09/10/17 23:00 98.2 F 80 16 154/67 98 09/10/17 14:41 98.0 F 79 16 149/64 99 Intake and Output 09/10/17 09/11/17 09/11/17 22:59 06:59 14:59 Output Total 850 325 Balance -850 -325 Output: Urine 850 325 Other: Voiding Method Indwelling Catheter # Bowel Movements 0 0 Weight 89.358 kg General appearance: The patient is alert, oriented, in no acute distress. HET: Head is normocephalic and atraumatic. Pupils are equal and reactive. Oropharynx is clear without lesions. Neck: Supple without lymphadenopathy. Trachea midline. Heart: S1 S2. Regular rate and rhythm. Port-A-Cath without erythema or drainage. Lungs: No crackles or wheezes are heard. Abdomen: Soft, nontender, distended with moderate ascites with bowel sounds. No peritoneal signs. No palpable organomegaly or masses. Extremities: +1 bilateral lower extremity edema. Normal skin color and turgor. Radial and pedal pulses are 2/4 bilaterally. Neurological: No focal deficits. Strength and sensation are grossly intact. Results CBC & Chem 7: 09/11/17 07:59 05/28/18 16:45 Labs: Abnormal Lab Results - Last 24 Hours (Table) 09/10/17 09/10/17 09/10/17 Range/Units 16:45 16:45 16:45 RBC 2.82 L (3.80-5.40) m/uL Hgb 8.4 L (11.4-16.0) gm/dL Hct 26.5 L (34.0-46.0) % RDW 15.9 H (11.5-15.5) % Lymphocytes # 0.8 L (1.0-4.8) k/uL Chloride 108 H (98-107) mmol/L Carbon Dioxide 21 L (22-30) mmol/L BUN 54 H (7-17) mg/dL Creatinine 1.20 H (0.52-1.04) mg/dL Glucose 103 H (74-99) mg/dL POC Glucose (mg/dL) (75-99) mg/dL Alkaline Phosphatase 242 H (38-126) U/L Ammonia 82 H (<30) umol/L Total Protein 5.5 L (6.3-8.2) g/dL Albumin 3.2 L (3.5-5.0) g/dL Urine Protein (Negative) Urine Blood (Negative) Ur Leukocyte Esterase (Negative) Urine RBC (0-5) /hpf Urine WBC (0-5) /hpf Hyaline Casts (0-2) /lpf Urine Mucus (None) /hpf 09/10/17 09/10/17 09/10/17 Range/Units 17:09 20:52 22:28 RBC (3.80-5.40) m/uL Hgb (11.4-16.0) gm/dL Hct (34.0-46.0) % RDW (11.5-15.5) % Lymphocytes # (1.0-4.8) k/uL Chloride (98-107) mmol/L Carbon Dioxide (22-30) mmol/L BUN (7-17) mg/dL Creatinine (0.52-1.04) mg/dL Glucose (74-99) mg/dL POC Glucose (mg/dL) 113 H 129 H (75-99) mg/dL Alkaline Phosphatase (38-126) U/L Ammonia (<30) umol/L Total Protein (6.3-8.2) g/dL Albumin (3.5-5.0) g/dL Urine Protein 1+ H (Negative) Urine Blood Small H (Negative) Ur Leukocyte Esterase Small H (Negative) Urine RBC 6 H (0-5) /hpf Urine WBC 12 H (0-5) /hpf Hyaline Casts 4 H (0-2) /lpf Urine Mucus Rare H (None) /hpf 09/11/17 09/11/17 Range/Units 06:57 07:59 RBC 2.71 L (3.80-5.40) m/uL Hgb 8.1 L (11.4-16.0) gm/dL Hct 24.8 L (34.0-46.0) % RDW 16.0 H (11.5-15.5) % Lymphocytes # 0.7 L (1.0-4.8) k/uL Chloride (98-107) mmol/L Carbon Dioxide (22-30) mmol/L BUN (7-17) mg/dL Creatinine (0.52-1.04) mg/dL Glucose (74-99) mg/dL POC Glucose (mg/dL) 152 H (75-99) mg/dL Alkaline Phosphatase (38-126) U/L Ammonia (<30) umol/L Total Protein (6.3-8.2) g/dL Albumin (3.5-5.0) g/dL Urine Protein (Negative) Urine Blood (Negative) Ur Leukocyte Esterase (Negative) Urine RBC (0-5) /hpf Urine WBC (0-5) /hpf Hyaline Casts (0-2) /lpf Urine Mucus (None) /hpf Assessment and Plan (1) Hepatic encephalopathy Current Visit: Yes Status: Acute Code(s): K72.90 - HEPATIC FAILURE, UNSPECIFIED WITHOUT COMA SNOMED Code(s): 03519309 (2) Pelvic mass Current Visit: Yes Status: Acute Code(s): R19.00 - INTRA-ABD AND PELVIC SWELLING, MASS AND LUMP, UNSP SITE SNOMED Code(s): 31130129 (3) Elevated CA-125 Current Visit: Yes Status: Acute Code(s): R97.1 - ELEVATED CANCER ANTIGEN 125 [CA 125] SNOMED Code(s): 858108979 (4) Ascites Current Visit: No Status: Acute Priority: High Code(s): R18.8 - OTHER ASCITES SNOMED Code(s): 479055675 (5) Cirrhosis of liver Narrative/Plan: Etiology unclear possible cryptogenic nonalcoholic liver disease related. Paracentesis 2 cytology negative for malignancy. Current Visit: No Status: Acute Code(s): K74.60 - UNSPECIFIED CIRRHOSIS OF LIVER SNOMED Code(s): 95738907 Plan: 1. Paracentesis not planned at this time patient is presently on Plavix needs to be held 7 days before paracentesis. 2. Case was discussed with oncology Dr. Nascimento. Will start low-dose diuretics monitored BUN/creatinine. Recommend Aldactone 50 mg daily. Lasix 40 mg daily. Serologic workup for chronic liver disease requested. We'll follow with you. 3. Lactulose 20 g 3 times daily titrate for 3 bowel movements daily. Daily ammonia level. 4. Low-salt diet. 5. RTO [place] next month. Thank you for this kind referral and the opportunity to participate in the care of your patient. This consultation was discussed with Dr. Sandoval. The impression and plan of care have been directed as dictated.
[2017-09-11 09:44] LABS: Calcium 8.9 mg/dL (8.4-10.2); Potassium 4.6 mmol/L (3.5-5.1); Total Bilirubin 0.3 mg/dL (0.2-1.3); Total Protein 5.2 g/dL (6.3-8.2)
[2017-09-11] MEDS ORDERED: IPRATROPIUM-ALBUTEROL 3 ML NEB INHALATION PRN (10:06)
--- NOTE | 2017-09-11 10:23 | US ---
EXAMINATION TYPE: US abdomen limited DATE OF EXAM: 09/11/2017 COMPARISON: Previous 09/06/2017 CLINICAL HISTORY: assess for fluid please. Ascites Minimal fluid, only seen on left lower quadrant. IMPRESSION: Minimal ascites
[2017-09-11] MEDS: IPRATROPIUM-ALBUTEROL 3 ML NEB INHALATION SCH ×3 (10:24→19:27)
[2017-09-11 12:04] LABS: Glucose,Whole Blood 182 mg/dL (75-99)
[2017-09-11 14:35] LABS: Hemoglobin A1C 6.4 % (4.0-6.0)
--- NOTE | 2017-09-11 15:16 | PN ---
PROGRESS NOTE DATE OF SERVICE: 09/11/2017 This 86-year-old woman was admitted with change in mental status and as well as ascites and possible hepatic encephalopathy. Patient had multiple ascitic tappings and the cytology has been negative, but CA-125 has been elevated. Evaluation by Hematology and Oncology at [facility] has been pending at this time. Patient is currently being evaluated [facility]. PAST MEDICAL HISTORY: Reviewed. REVIEW OF SYSTEMS: CARDIOVASCULAR: No angina or palpitations. RESPIRATORY: As mentioned earlier. GI: As mentioned earlier. : As mentioned earlier. NERVOUS SYSTEM: No numbness or weakness. CURRENT MEDICATIONS REVIEWED AND INCLUDE: 1. [place] 5 mg q.6 p.r.n. 2. DuoNeb q.i.d. and p.r.n. 3. Zyloprim 100 mg daily. 4. Xanax 0.5 q.24 hours. 5. Norvasc 5 mg. 6. Rocephin 1 g daily. 7. Plavix 75 mg b.i.d. 8. Iron sulfate 320 mg b.i.d. 9. Lasix 60 mg p.o. daily. 10.Neurontin 400 mg p.o. b.i.d. 11.Glucotrol 5 mg a.c. b.i.d. 12.Heparin subcu b.i.d. 13.Apresoline 25 mg p.o. t.i.d. 14.Levemir 20 units subcu q.h.s. 15.Cephulac 20 g p.o. t.i.d. 16.Synthroid 200 mcg p.o. daily. 17.Synthroid 25 mcg p.o. daily. 18.Toprol-XL 100 mg p.o. daily. 19.Singulair 10 mg p.o. daily. 20.Protonix 40 mg b.i.d. 21.Aldactone 25 mg p.o. b.i.d. PHYSICAL EXAM: Patient is alert and oriented x3. Pulse 71, blood pressure is 115/62, respiration 18, temperature 99 degrees, pulse ox normal. HEENT: Conjunctivae normal, oral mucosa moist. Neck is no jugular venous distention. No carotid bruit, no lymph enlargement. CARDIOVASCULAR: S1, S2, muffled. RESPIRATORY: Breath sounds diminished at the bases. A few scattered rhonchi and crackles. ABDOMEN: Soft, distended. Ascites present. LEGS: No edema, no swelling. NERVOUS SYSTEM: No focal deficits. LABORATORY STUDIES: WBC is 5.1, hemoglobin is 8.7, sodium 147, creatinine is 1.46, alkaline phosphatase 230. ASSESSMENT: 1. Change in mental status, possible hepatic encephalopathy with high ammonia. 2. Cirrhosis of liver with ascites. 3. Rule out malignancy and pelvic tumor. 4. Increased creatinine with chronic kidney disease stage III. 5. History of congestive heart failure. 6. Diabetes type 2. 7. Hypertension. 8. History of degenerative joint disease. 9. History of kidney stones. 10.History of hysterectomy. RECOMMENDATION: Recommend to continue with the current management and symptomatic treatment. Otherwise, continue with lactulose. Ammonia has improved significantly. Recommend empiric antibiotics. Follow with the cultures. Otherwise, increase ambulation. Once the patient is stabilized, patient may be sent back to ECF. Monitor creatinine closely. Gastroenterology and Oncology following the patient closely. Please note patient apparently has an appointment at [facility] environmental health specialist Oncology which is arranged by the Hematology, Oncology team. Otherwise, continue to monitor. Further recommendations to follow. See orders for details. MMODL / IJN: [id number] /
[2017-09-11 17:19] LABS: Glucose,Whole Blood 126 mg/dL (75-99)
[2017-09-11] MEDS: LACTULOSE 20 GM/30 ML CUP PO SCH ×2 (17:37→22:05)
--- NOTE | 2017-09-11 17:52 | P.CONS ---
History of Present Illness - Reason for Consult Consult date: 09/11/17 Recurrent Abdominal Ascites Requesting physician: Ibeth Nelson - Chief Complaint Mental Status Changes and Increasing abdominal ascites - History of Present Illness Mrs Perez is an 86-year old female who was recently hospitalized with recurrent abdominal ascites and a new found pelvic mass. She underwent two abdominal paracentesis (09/06 - 3Liters removed and 08/31 with 3.3 Liters removed ) and both were sent for cytology but failed to show evidence of malignant cells. Because of the location we were unable to obtain a biopsy of the mass. She was set up for out patient biopsy and evaluation with [facility]EL[facility]. Her Ca125 was mildly elvated which was concerning for an underlining peritoneal/Ovarian cancer. She was discharged to on 09/07 to [facility]. CT of the abdomen on 2017 demonstrated a 10.1cm cystic looking pelvic mass and a lobulated-appearing liver without focal mass. Abdominal ultrasound was reported cirrhotic morphology of the liver. She presents back to the hospital with increasing abdominal ascites and hepatic encephalopathy. This has since improved. She did not have her outpatient evaluation yet with [facility]EL[facility] Dr. Babita Tillman. Review of Systems A 14 point review of systems assessed and completed and all negative except HPI Past Medical History Past Medical History: Heart Failure, Diabetes Mellitus, Hyperlipidemia, Hypertension, Thyroid Disorder Additional Past Medical History / Comment(s): arthritis, thyroidectomy, kidney stones, retinal correction surgery. History of Any Multi-Drug Resistant Organisms: None Reported Past Surgical History: Hysterectomy Additional Past Surgical History / Comment(s): retinal correction surgery, hip replace x2. Neck surgery. pt states doesn't remember all medical history. Past Anesthesia/Blood Transfusion Reactions: No Reported Reaction Additional Past Anesthesia/Blood Transfusion Reaction / Comm: pt states hallucinations with anesthesia. Past Psychological History: No Psychological Hx Reported Smoking Status: Former smoker Past Alcohol Use History: None Reported Past Drug Use History: None Reported Additional Drug Use History / Comment(s): quit smoking in 2003 - Past Family History Father Family Medical History: Unable to Obtain Mother Family Medical History: Unable to Obtain Medications and Allergies Home Medications Medication Instructions Recorded Confirmed Type Allopurinol [Zyloprim] 100 mg PO DAILY 03/06/17 09/10/17 History Clopidogrel [Plavix] 75 mg PO DAILY 03/06/17 09/10/17 History Gabapentin [Neurontin] 400 mg PO BID 03/06/17 09/10/17 History Montelukast [Singulair] 10 mg PO DAILY 03/06/17 09/10/17 History Insulin Detemir [Levemir] 20 unit SQ HS syr 03/12/17 09/10/17 Rx Metoprolol Succinate (ER) [Toprol 100 mg PO DAILY tab.er.24h 03/12/17 09/10/17 Rx XL] Levothyroxine Sodium 25 mcg PO DAILY 08/25/17 09/10/17 History Levothyroxine Sodium 200 mcg PO DAILY 08/25/17 09/10/17 History Ferrous Sulfate [Iron (65 MG 325 mg PO BID-W/MEALS tab 09/07/17 09/10/17 Rx Elemental)] Fluticasone Nasal [place] [Flonase 2 spray EA NOSTRIL DAILY spr 09/07/17 Rx Nasal [place]] Pantoprazole [Protonix] 40 mg PO AC-BID tablet. 09/07/17 09/10/17 Rx Spironolactone [Aldactone] 25 mg PO BID tab 09/07/17 09/10/17 Rx hydrALAZINE HCL [Apresoline] 25 mg PO TID tab 09/07/17 09/10/17 Rx ALPRAZolam [Xanax] 0.25 mg PO Q24H PRN 09/10/17 09/10/17 History Furosemide [Lasix] 60 mg PO DAILY 09/10/17 09/10/17 History HYDROcodone/APAP 5-325MG [[place] 1 tab PO Q6HR PRN 09/10/17 09/10/17 History 5-325] INSULIN LISPRO (HumaLOG) [humaLOG] See Protocol SQ ACHS 09/10/17 09/10/17 History amLODIPine [Norvasc] 5 mg PO DAILY 09/10/17 09/10/17 History glipiZIDE [Glucotrol] 5 mg PO AC-BID 09/10/17 09/10/17 History Allergies Allergy/AdvReac Type Severity Reaction Status Date / Time asparagus Allergy Unknown Verified 09/10/17 16:03 aspirin Allergy Rash/Hives Verified 09/10/17 16:03 Cauliflower Allergy Unknown Verified 09/10/17 16:03 Penicillins Allergy Rash/Hives Verified 09/10/17 16:03 Sulfa (Sulfonamide Allergy Rash/Hives Verified 09/10/17 16:03 Antibiotics) venom-honey bee Allergy Anaphylaxis Verified 09/10/17 16:03 wool Allergy Rash/Hives Verified 09/10/17 16:03 Physical Exam Vitals: Vital Signs Temp Pulse Pulse Pulse Pulse Pulse Resp 09/11/17 15:42 72 09/11/17 15:29 68 09/11/17 15:00 99.5 F 67 20 09/11/17 12:42 71 63 79 09/11/17 10:36 68 09/11/17 10:24 68 09/11/17 06:18 99.0 F 85 18 09/10/17 23:00 98.2 F 80 16 BP Pulse Ox Pulse Ox Pulse Ox Pulse Ox 09/11/17 15:42 09/11/17 15:29 09/11/17 15:00 135/55 99 09/11/17 12:42 96 95 94 L 09/11/17 10:36 09/11/17 10:24 09/11/17 06:18 153/67 98 09/10/17 23:00 154/67 98 Intake and Output 09/11/17 09/11/17 09/11/17 06:59 14:59 22:59 Output Total 325 1000 Balance -325 -1000 Output: Urine 325 1000 Other: Voiding Method Indwelling Catheter # Voids 500 # Bowel Movements 0 - Constitutional General appearance: cooperative, no acute distress - EENT Eyes: EOMI, PERRLA, dentition normal ENT: hard of hearing, NA/AT, normal oropharynx - Neck Neck: normal ROM - Respiratory Respiratory: bilateral: diminished (Bibasilar) - Cardiovascular Rhythm: regular Heart sounds: normal: S1, S2 - Gastrointestinal General gastrointestinal: normal bowel sounds, soft, tenderness - Integumentary Integumentary: pale - Neurologic Neurologic: CNII-XII intact - Musculoskeletal Musculoskeletal: generalized weakness, strength equal bilaterally - Psychiatric Psychiatric: A&O x's 3, appropriate affect, intact judgment & insight Results CBC & Chem 7: 09/11/17 07:59 09/11/17 07:59 Labs: Abnormal Lab Results - Last 24 Hours (Table) 09/10/17 09/10/17 09/10/17 Range/Units 16:45 16:45 16:45 RBC 2.82 L (3.80-5.40) m/uL Hgb 8.4 L (11.4-16.0) gm/dL Hct 26.5 L (34.0-46.0) % RDW 15.9 H (11.5-15.5) % Lymphocytes # 0.8 L (1.0-4.8) k/uL Sodium (137-145) mmol/L Chloride 108 H (98-107) mmol/L Carbon Dioxide 21 L (22-30) mmol/L BUN 54 H (7-17) mg/dL Creatinine 1.20 H (0.52-1.04) mg/dL Glucose 103 H (74-99) mg/dL POC Glucose (mg/dL) (75-99) mg/dL Hemoglobin A1c 6.4 H (4.0-6.0) % ALT (9-52) U/L Alkaline Phosphatase 242 H (38-126) U/L Ammonia (<30) umol/L Total Protein 5.5 L (6.3-8.2) g/dL Albumin 3.2 L (3.5-5.0) g/dL Urine Protein (Negative) Urine Blood (Negative) Ur Leukocyte Esterase (Negative) Urine RBC (0-5) /hpf Urine WBC (0-5) /hpf Hyaline Casts (0-2) /lpf Urine Mucus (None) /hpf 09/10/17 09/10/17 09/10/17 Range/Units 16:45 17:09 20:52 RBC (3.80-5.40) m/uL Hgb (11.4-16.0) gm/dL Hct (34.0-46.0) % RDW (11.5-15.5) % Lymphocytes # (1.0-4.8) k/uL Sodium (137-145) mmol/L Chloride (98-107) mmol/L Carbon Dioxide (22-30) mmol/L BUN (7-17) mg/dL Creatinine (0.52-1.04) mg/dL Glucose (74-99) mg/dL POC Glucose (mg/dL) 113 H 129 H (75-99) mg/dL Hemoglobin A1c (4.0-6.0) % ALT (9-52) U/L Alkaline Phosphatase (38-126) U/L Ammonia 82 H (<30) umol/L Total Protein (6.3-8.2) g/dL Albumin (3.5-5.0) g/dL Urine Protein (Negative) Urine Blood (Negative) Ur Leukocyte Esterase (Negative) Urine RBC (0-5) /hpf Urine WBC (0-5) /hpf Hyaline Casts (0-2) /lpf Urine Mucus (None) /hpf 09/10/17 09/11/17 09/11/17 Range/Units 22:28 06:57 07:59 RBC 2.71 L (3.80-5.40) m/uL Hgb 8.1 L (11.4-16.0) gm/dL Hct 24.8 L (34.0-46.0) % RDW 16.0 H (11.5-15.5) % Lymphocytes # 0.7 L (1.0-4.8) k/uL Sodium (137-145) mmol/L Chloride (98-107) mmol/L Carbon Dioxide (22-30) mmol/L BUN (7-17) mg/dL Creatinine (0.52-1.04) mg/dL Glucose (74-99) mg/dL POC Glucose (mg/dL) 152 H (75-99) mg/dL Hemoglobin A1c (4.0-6.0) % ALT (9-52) U/L Alkaline Phosphatase (38-126) U/L Ammonia (<30) umol/L Total Protein (6.3-8.2) g/dL Albumin (3.5-5.0) g/dL Urine Protein 1+ H (Negative) Urine Blood Small H (Negative) Ur Leukocyte Esterase Small H (Negative) Urine RBC 6 H (0-5) /hpf Urine WBC 12 H (0-5) /hpf Hyaline Casts 4 H (0-2) /lpf Urine Mucus Rare H (None) /hpf 09/11/17 09/11/17 09/11/17 Range/Units 07:59 07:59 12:03 RBC (3.80-5.40) m/uL Hgb (11.4-16.0) gm/dL Hct (34.0-46.0) % RDW (11.5-15.5) % Lymphocytes # (1.0-4.8) k/uL Sodium 147 H (137-145) mmol/L Chloride 113 H (98-107) mmol/L Carbon Dioxide 19 L (22-30) mmol/L BUN 51 H (7-17) mg/dL Creatinine 1.46 H (0.52-1.04) mg/dL Glucose 135 H (74-99) mg/dL POC Glucose (mg/dL) 182 H (75-99) mg/dL Hemoglobin A1c (4.0-6.0) % ALT 53 H (9-52) U/L Alkaline Phosphatase 230 H (38-126) U/L Ammonia 54 H (<30) umol/L Total Protein 5.2 L (6.3-8.2) g/dL Albumin 3.0 L (3.5-5.0) g/dL Urine Protein (Negative) Urine Blood (Negative) Ur Leukocyte Esterase (Negative) Urine RBC (0-5) /hpf Urine WBC (0-5) /hpf Hyaline Casts (0-2) /lpf Urine Mucus (None) /hpf Microbiology - Last 24 Hours (Table) 09/10/17 22:28 Urine Culture - Preliminary Urine,Catheterized CT Scan - head: report reviewed Assessment and Plan Plan: Assessment and Recommendations: 1. Right Adnexal Cystic Mass - Unknown Etiology - Concern for underlying malignancy although unclear with the picture of hepatic disease and recurrent paracentesis negative for malignant cells. 2. Hepatic Encephalopathy - Improving - Continue to have 2-3 stools per day per GI 3. Recurrent Abdominal Ascites: - Status Post Paracentesis x2 (Negative for Malignancy) 4. DISPO PLAN - Continue with plan for outpatient evaluation and probable tissue diagnosis through [facility] Dr. Rabbi Tillman after discharge. With the appearance of underlying hepatic disease the recurrent ascites may be related to liver. Will need tissue diagnosis of mass prior to confirmation. Physician Attestation: I have completed the full history and physical of this patient and agree with the above dictation by Yamini Swann NP. Dictated as a scribe.
[2017-09-11 22:11] LABS: Glucose,Whole Blood 149 mg/dL (75-99)
[2017-09-11] MEDS: INSULIN DETEMIR 100 UNIT/ML 10 ML VIAL SQ SCH (22:15)
[2017-09-12 05:55] VITALS: RESP 16
[2017-09-12] MEDS: LEVOTHYROXINE 25 MCG TAB PO SCH (06:25)
[2017-09-12] MEDS: LEVOTHYROXINE 100 MCG TAB PO SCH (06:25)
[2017-09-12] MEDS: IPRATROPIUM-ALBUTEROL 3 ML NEB INHALATION SCH ×3 (06:55→15:47)
[2017-09-12 07:28] LABS: Glucose,Whole Blood 110 mg/dL (75-99)
[2017-09-12] MEDS: INSULIN ASPART 100 UNIT/ML 1 ML 10 ML VIAL SQ SCH ×3 (08:01→18:00)
[2017-09-12] MEDS: LACTULOSE 20 GM/30 ML CUP PO SCH ×2 (08:03→16:44)
[2017-09-12] MEDS: FLUTICASONE 50MCG/SPRAY NASAL 16GM EA NOSTRIL SCH (08:03)
[2017-09-12] MEDS: glipiZIDE 5 MG TAB PO SCH ×2 (08:04→18:00)
[2017-09-12] MEDS: CLOPIDOGREL 75 MG TAB PO SCH (08:04)
[2017-09-12] MEDS: SPIRONOLACTONE 25 MG TAB PO SCH (08:04)
[2017-09-12] MEDS: FERROUS SULFATE 325 MG TAB PO SCH ×2 (08:04→18:00)
[2017-09-12] MEDS: HEPARIN SODIUM,PORCINE 5,000 UNIT/ML 1 ML VIAL SQ SCH (08:04)
[2017-09-12] MEDS: ALLOPURINOL 100 MG TAB PO SCH (08:04)
[2017-09-12] MEDS: cefTRIAXone IN SWFI 1,000 MG/10 ML SYRINGE IVP SCH (08:04)
[2017-09-12] MEDS: MONTELUKAST 10 MG TAB PO SCH (08:04)
[2017-09-12] MEDS: hydrALAZINE HCL 25 MG TAB PO SCH ×2 (08:04→16:44)
[2017-09-12] MEDS: PANTOPRAZOLE 40 MG TABLET PO SCH ×2 (08:04→18:00)
[2017-09-12] MEDS: METOPROLOL SUCCINATE (ER) 100 MG TAB.ER.24H PO SCH (08:04)
[2017-09-12] MEDS: amLODIPine 5 MG TAB PO SCH (08:04)
[2017-09-12] MEDS: FUROSEMIDE 20 MG TAB PO SCH (08:04)
[2017-09-12] MEDS: GABAPENTIN 400 MG CAP PO SCH (08:04)
[2017-09-12 09:18] LABS: Anisocytosis Slight; Basophils % (A) 1 %; Eosinophils # (A) 0.1 k/uL (0-0.7); Eosinophils % (A) 4 %; HCT 24.4 % (34.0-46.0); HGB 7.7 gm/dL (11.4-16.0); Hypochromasia Slight; Lymphocytes # (A) 0.7 k/uL (1.0-4.8); Lymphocytes % (A) 18 %; MCH 29.6 pg (25.0-35.0); MCHC 31.4 g/dL (31.0-37.0); MCV 94.2 fL (80.0-100.0); Mean Platelet Volume 7.3; Monocytes # (A) 0.3 k/uL (0-1.0); Monocytes % (A) 8 %; Neutrophils # (A) 2.7 k/uL (1.3-7.7); Neutrophils % (A) 68 %; Platelet Count 187 k/uL (150-450); RBC 2.59 m/uL (3.80-5.40)
[2017-09-12 12:07] LABS: Albumin 2.9 g/dL (3.5-5.0); Calcium 8.3 mg/dL (8.4-10.2); Potassium 4.2 mmol/L (3.5-5.1); Total Bilirubin 0.3 mg/dL (0.2-1.3); Total Protein 5.2 g/dL (6.3-8.2)
[2017-09-12 12:31] LABS: Glucose,Whole Blood 180 mg/dL (75-99)
[2017-09-12 14:47] VITALS: BP 126/55; TEMP 97.8
[2017-09-12 16:04] VITALS: PULSE 72
[2017-09-12 17:12] LABS: Glucose,Whole Blood 230 mg/dL (75-99)
--- NOTE | 2017-09-12 17:42 | P.DS ---
Providers Date of admission: 09/10/17 15:09 Expected date of discharge: 09/12/17 Attending physician: Ibeth Gamboa Final Diagnoses: 1. Change in mental status, possible hepatic encephalopathy with elevated ammonia, improving with Lactulose 2. 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 Right adnexal mass consistent with a possible malignancy 4. Acute on CHronic renal failure, stageIII 5. Left kidney cystic lesion, hx of kidney stones 6. Hypertension 7. Diabetes mellitus 9. Iron deficient anemia Hospital Course:This is an 86-year-old female admitted with change in mental status,possible hepatic encephalopathy, recurrent ascites, possibly malignant ascites, history of pelvic mass. Underwent paracentesis on August 26 with 3.2 L removed, on August 31 with 3 L removed and on September 06 with 3.3 L removed. Negative cytology and elevated CA-125.Lobulated liver, cirrhotic morphology per CT/US of abdomen.Interventional Radiology unable to perform biospsy given mass location.Evaluated by Hematology/Oncology.Initially patient had been discharged on 09/07/17 to rehab, with appointment to be scheduled with Dr. Rabbi Tillman EMR TRAINER ONcologist for biospy as per oncology.Per Oncology, suspicion for peritoneal Ovarian Cancer. Maintained on Lasix, Aldactone, LActulose. Given patient's symtomatic, frequent- recurrent ascites,further discussion with Oncology, patient will be transferred to tertiary care to facilitate EMR TRAINER/ONC evaluation.Patient will be transferred to [facility] in a safe condition with guarded Prognosis.*Plavix placed on hold for Biopsy.* EXAM: Alert and oriented 3, no acute distress,CV: S1, S2 muffled,LUNGS: Bilateral bases diminished, occasional scattered rhonchi, ABD: Soft, ascites, positive bowel sounds.Neuro: No focal deficits. The impression and plan of care has been dictated as directed. : I performed a history and examination of this patient, discussed the same with the dictator. I agree with the dictator's note ,documented as a scribe. Any additional findings or plans will be noted. Time taken: 35 minutes Consults: 09/10/17 16:53 Consult Physician Routine Consulting Provider: Juan Jose Sandoval Consult Reason/Comments: ascites Do you want consulting provider notified?: Yes 09/10/17 17:48 Consult Physician Routine Consulting Provider: Anson Nascimento Consult Reason/Comments: malignancy Do you want consulting provider notified?: Yes 09/12/17 12:36 Consult Physician Routine Consulting Provider: Yordy Avila Consult Reason/Comments: renal failure Do you want consulting provider notified?: Yes Primary care physician: Stated None Patient Condition at Discharge: Stable Plan - Discharge Summary Discharge Rx Participant: No New Discharge Prescriptions: New amLODIPine [Norvasc] 5 mg PO DAILY tab cefTRIAXone [Rocephin] 1,000 mg IVP Q24HR syringe Furosemide [Lasix] 60 mg PO DAILY tab Heparin Sodium,Porcine [Heparin Sodium] 5,000 unit SQ Q12HR vial hydrALAZINE HCL [Apresoline] 25 mg PO TID tab Insulin Aspart [NovoLOG (formulary)] 0 unit SQ ACHS vial Insulin Detemir [Levemir] 20 unit SQ HS syr Ipratropium-Albuterol Nebulize [Duoneb 0.5 mg-3 mg/3 ml Soln] 3 ml INHALATION RT-QID ampul.neb Ipratropium-Albuterol Nebulize [Duoneb 0.5 mg-3 mg/3 ml Soln] 3 ml INHALATION RT-Q2H PRN ampul.neb PRN Reason: Shortness Of Breath Or Wheezing Lactulose [Cephulac] 20 gm PO TID ml Levothyroxine Sodium [Synthroid] 200 mcg PO 0630 tab Levothyroxine Sodium [Synthroid] 25 mcg PO 0630 tab Continue Allopurinol [Zyloprim] 100 mg PO DAILY Montelukast [Singulair] 10 mg PO DAILY Gabapentin [Neurontin] 400 mg PO BID Metoprolol Succinate (ER) [Toprol XL] 100 mg PO DAILY tab.er.24h Ferrous Sulfate [Iron (65 MG Elemental)] 325 mg PO BID-W/MEALS tab Fluticasone Nasal [place] [Flonase Nasal [place]] 2 spray EA NOSTRIL DAILY spr Pantoprazole [Protonix] 40 mg PO AC-BID tablet. Spironolactone [Aldactone] 25 mg PO BID tab ALPRAZolam [Xanax] 0.25 mg PO Q24H PRN PRN Reason: Anxiety HYDROcodone/APAP 5-325MG [[place] 5-325] 1 tab PO Q6HR PRN PRN Reason: Pain glipiZIDE [Glucotrol] 5 mg PO AC-BID Discontinued Clopidogrel [Plavix] 75 mg PO DAILY Insulin Detemir [Levemir] 20 unit SQ HS syr Levothyroxine Sodium 200 mcg PO DAILY Levothyroxine Sodium 25 mcg PO DAILY hydrALAZINE HCL [Apresoline] 25 mg PO TID tab INSULIN LISPRO (HumaLOG) [humaLOG] See Protocol SQ ACHS amLODIPine [Norvasc] 5 mg PO DAILY Furosemide [Lasix] 60 mg PO DAILY Discharge Medication List Allopurinol [Zyloprim] 100 mg PO DAILY 03/06/17 [History] Gabapentin [Neurontin] 400 mg PO BID 03/06/17 [History] Montelukast [Singulair] 10 mg PO DAILY 03/06/17 [History] Metoprolol Succinate (ER) [Toprol XL] 100 mg PO DAILY tab.er.24h 03/12/17 [Rx] Ferrous Sulfate [Iron (65 MG Elemental)] 325 mg PO BID-W/MEALS tab 09/07/17 [Rx ] Fluticasone Nasal [place] [Flonase Nasal [place]] 2 spray EA NOSTRIL DAILY spr [Rx] Pantoprazole [Protonix] 40 mg PO AC-BID tablet. 09/07/17 [Rx] Spironolactone [Aldactone] 25 mg PO BID tab 09/07/17 [Rx] ALPRAZolam [Xanax] 0.25 mg PO Q24H PRN 09/10/17 [History] HYDROcodone/APAP 5-325MG [[place] 5-325] 1 tab PO Q6HR PRN 09/10/17 [History] glipiZIDE [Glucotrol] 5 mg PO AC-BID 09/10/17 [History] Furosemide [Lasix] 60 mg PO DAILY tab 09/12/17 [Rx] Heparin Sodium,Porcine [Heparin Sodium] 5,000 unit SQ Q12HR vial 09/12/17 [Rx] Insulin Aspart [NovoLOG (formulary)] 0 unit SQ ACHS vial 09/12/17 [Rx] Insulin Detemir [Levemir] 20 unit SQ HS syr 09/12/17 [Rx] Ipratropium-Albuterol Nebulize [Duoneb 0.5 mg-3 mg/3 ml Soln] 3 ml INHALATION RT -Q2H PRN ampul.neb 09/12/17 [Rx] Ipratropium-Albuterol Nebulize [Duoneb 0.5 mg-3 mg/3 ml Soln] 3 ml INHALATION RT -QID ampul.neb 09/12/17 [Rx] Lactulose [Cephulac] 20 gm PO TID ml 09/12/17 [Rx] Levothyroxine Sodium [Synthroid] 25 mcg PO 0630 tab 09/12/17 [Rx] Levothyroxine Sodium [Synthroid] 200 mcg PO 0630 tab 09/12/17 [Rx] amLODIPine [Norvasc] 5 mg PO DAILY tab 09/12/17 [Rx] cefTRIAXone [Rocephin] 1,000 mg IVP Q24HR syringe 09/12/17 [Rx] hydrALAZINE HCL [Apresoline] 25 mg PO TID tab 09/12/17 [Rx] Follow up Appointment(s)/Referral(s): Apoorva Dunn MD [STAFF PHYSICIAN] - 10/11/17 3:30 pm ([place] office) Anson Nascimento MD [STAFF PHYSICIAN] - Activity/Diet/Wound Care/Special Instructions: [facility] EMR TRAINER/ONC Plavix placed on hold for BX
[2017-09-12 17:53] LABS: Protein, Total 5.2 g/dL (6.2-8.2)
[2017-09-12 19:56] LABS: Hepatitis A Antibody IgM Non-Reactive (Non-Reactive); Hepatitis B Core IgM Non-Reactive (Non-Reactive)
[2017-09-13 12:37] LABS: Ceruloplasmin 28.4 mg/dL (20.0-60.0)
[2017-09-13 13:42] LABS: Albumin 2.84 g/dL (3.80-4.90); Gamma Globulin 0.57 g/dL (0.70-1.50)
== END 2017-09-12 19:08 | disposition short-term general hospital (02) | DRG 442 ==
LOC: 4MS4W 15:09
PROVIDERS: ADMIT Hospitalist; ATTEND Hospitalist
DX: K72.90 Hepatic failure, unspecified without coma (principal); I13.0 Hypertensive heart and chronic kidney disease with heart failure and stage 1 through stage 4 chronic kidney disease, or unspecified chronic kidney disease; N17.9 Acute kidney failure, unspecified; C56.1 Malignant neoplasm of right ovary; R18.0 Malignant ascites; D50.9 Iron deficiency anemia, unspecified; E11.22 Type 2 diabetes mellitus with diabetic chronic kidney disease; E78.5 Hyperlipidemia, unspecified; E89.0 Postprocedural hypothyroidism; I50.9 Heart failure, unspecified; N18.3 Chronic kidney disease, stage 3 (moderate); N28.1 Cyst of kidney, acquired; K74.60 Unspecified cirrhosis of liver; M19.90 Unspecified osteoarthritis, unspecified site; Z79.02 Long term (current) use of antithrombotics/antiplatelets; Z79.4 Long term (current) use of insulin; Z79.899 Other long term (current) drug therapy; Z87.442 Personal history of urinary calculi; Z87.891 Personal history of nicotine dependence; Z90.710 Acquired absence of both cervix and uterus; Z88.6 Allergy status to analgesic agent; Z91.030 Bee allergy status; Z88.0 Allergy status to penicillin; Z88.2 Allergy status to sulfonamides; Z91.018 Allergy to other foods; Z91.048 Other nonmedicinal substance allergy status; Z79.890 Hormone replacement therapy; Z79.51 Long term (current) use of inhaled steroids
CPT/HCPCS: 70450; 71045; 76705; 80053; 80074; 81001; 82103; 82140; 82390; 83036; 83516; 83605; 84165; 85025; 85610; 86038; 87040; 87086; 94640

== ENCOUNTER 2017-11-06 08:15 | Day surgery (SDC) | payer MEDICARE, BC ==
[2017-11-06 09:20] LABS: Platelet Count 337 k/uL (150-450)
[2017-11-06 09:25] VITALS: BP 176/68; PULSE 86; RESP 18; TEMP 98.1
[2017-11-06 09:26] LABS: INR 1.1 (<1.2)
--- NOTE | 2017-11-06 09:39 | US ---
Therapeutic paracentesis. DATE OF EXAM: 11/06/2017 CLINICAL HISTORY: Ascites Preliminary imaging demonstrated only a small amount of fluid within the right lower quadrant. Patien t deferred the procedure. IMPRESSION: Discontinued paracentesis.
== END 2017-11-06 09:25 ==
LOC: RADPROMAIN 08:15
PROVIDERS: ATTEND Family Medicine
DX: R18.8 Other ascites (principal); Z53.8 Procedure and treatment not carried out for other reasons
CPT/HCPCS: 36415; 76705; 82947; 85049; 85610